=== PATIENT | female | born 1930 | race Caucasian/White ===

== ENCOUNTER 2016-08-30 12:44 | Inpatient (IN) | payer OTHER ==
[~2016-08-30] VITALS: Ht 157.5 cm; Wt 42.0 kg
[~2016-08-30 12:44] MED LIST: ATV5X PO; CALC-20 PO; ERGO500011 PO; HYDR-4079 PO; LOSA1TAB PO; MULTCAP33 PO; POTA-327 PO; TGR100 PO; ZONI100C39 PO
[2016-08-30] MEDS ORDERED: TOLT2TAB9 PO (13:25)
[2016-08-30] MEDS ORDERED: CARB1CAP8 PO (13:25)
[2016-08-30] MEDS ORDERED: MCRK/10 PO (13:25)
[2016-08-30] MEDS ORDERED: DRGTP12 TOP (13:26)
[2016-08-30] MEDS ORDERED: ONDANSETRON INJ 2 MG/ML 2 ML VIAL IV STA (13:34)
[2016-08-30] MEDS ORDERED: MoRPHine SULFATE 2 MG/ML CARP IV STA (13:34)
[2016-08-30 14:04] LABS: MEAN CELL VOLUME 95.2 fL (80-100); MEAN CORPUSCULAR HEMOGLOBIN 31.5 pg (25-34); MEAN CORPUSCULAR HGB CONC 33.1 g/dl (32-36); MEAN PLATELET VOLUME 8.1 fL (7.4-10.4); PLATELET COUNT 217 K/uL (130-400); RED BLOOD COUNT 3.78 M/uL (4.2-5.4); WHITE BLOOD COUNT 10.07 K/uL (4.8-10.8)
[2016-08-30 14:22] LABS: BUN/CREATININE RATIO 19.3 (10-20); CALCIUM 8.8 mg/dl (8.5-10.1); CREATININE 0.69 mg/dl (0.60-1.20); POTASSIUM 4.7 mmol/L (3.5-5.1)
[2016-08-30 14:55] LABS: BASO % 0.2 %; BASO ABS # 0.02 K/uL (0-0.2); COMPLETE YES; EOS % 0.3 %; IG% 0.4 %; LYMPH % 7.5 %; LYMPH ABS # 0.76 K/uL (1.2-3.4); MONO % 9.7 %; NEUT % 81.9 %
--- NOTE | 2016-08-30 15:10 | DIAGNOSTIC IMAGING REPORT ---
LEFT ELBOW 2 VIEWS CLINICAL HISTORY: Fall. Elbow deformity. FINDINGS: Frontal and lateral views of the left elbow are obtained. No prior studies are available for comparison at the time of dictation. The skeletal structures are osteopenic. There is a distracted fracture through the olecranon process of the ulna. The fragments are distracted by at least 7 mm. There is a large associated joint effusion and marked soft tissue edema around the elbow. No additional fracture is seen. Enthesophytes arise from the humeral epicondyles. Degenerative spurring is seen along the medial aspect of the joint space. IMPRESSION: 1. There is a distracted fracture of the olecranon process with associated joint effusion and soft tissue edema. 2. No additional fracture is seen. Electronically signed by: Travis Khalil M.D. 08/30/2016 3:09 PM Dictated Date/Time: 08/30/2016 3:07 PM
--- NOTE | 2016-08-30 15:24 | DIAGNOSTIC IMAGING REPORT ---
RIGHT HIP 2 VIEWS CLINICAL HISTORY: Fall with right hip pain. FINDINGS: AP and frog-leg views of the right hip are correlated with pelvic radiograph dated 02/05/2011. The skeletal structures are osteopenic. A right hip arthroplasty is in near-anatomic alignment. No acute fracture is seen. No periprosthetic lucency is identified. Sclerotic change is noted in the right sacroiliac joint. The overlying soft tissues are within normal limits. Pelvic calcifications are unchanged and may be related to uterine fibroids. IMPRESSION: 1. There is no radiographic evidence of right hip fracture. 2. A right hip arthroplasty is in near-anatomic alignment. Electronically signed by: Travis Khalil M.D. 08/30/2016 3:22 PM Dictated Date/Time: 08/30/2016 3:21 PM
--- NOTE | 2016-08-30 15:28 | DIAGNOSTIC IMAGING REPORT ---
AP CHEST WITH LEFT-SIDED RIB SERIES CLINICAL HISTORY: Fall. Left rib pain. FINDINGS: An AP upright chest radiograph with 3 additional views may left-sided rib series is compared to study dated 12/31/2013. The heart is top normal for projection and there is atherosclerotic calcification of the thoracic aorta. Chronic interstitial thickening is unchanged. No airspace consolidation, pleural effusion, or pneumothorax is seen. The skeletal structures are osteopenic. There are numerous healed left-sided rib fractures. There are acute and nondistracted left anterolateral 7th through 10th rib fractures seen on the rib series. Degenerative change and moderate scoliosis is noted in the thoracic spine. Fusion hardware is partially imaged in the lumbar spine. IMPRESSION: 1. The lungs are clear and there is no pneumothorax. 2.There are acute and nondistracted left anterolateral 7th through 10th rib fractures seen on the rib series. Electronically signed by: Travis Khalil M.D. 08/30/2016 3:27 PM Dictated Date/Time: 08/30/2016 3:24 PM
[2016-08-30] MEDS ORDERED: MoRPHine SULFATE 2 MG/ML CARP IV PRN (15:45)
--- NOTE | 2016-08-30 15:53 | EMERGENCY ROOM VISIT NOTE ---
ED Visit Note First contact with patient: 12:51 Staff note: I have reviewed the Patients chart and have discussed this case with my PA. I generally agree with the ED note and findings.
[2016-08-30 16:13] VITALS: O2SAT 98; Ht 157.5 cm; Wt 42.0 kg
[2016-08-30] MEDS ORDERED: ERGO50002 PO (16:53)
[2016-08-30] MEDS ORDERED: LOSA50TA6 PO (16:53)
[2016-08-30] MEDS ORDERED: HYDR-4383 PO (16:53)
--- NOTE | 2016-08-30 17:03 | EMERGENCY ROOM VISIT NOTE ---
History First contact with patient: 12:51 Chief Complaint: FALL Stated Complaint: FALL/ELBOW DEFORMITY History of Present Illness The patient is a 85 year old white female who presents to the Emergency Room by ambulance with complaints of left elbow pain, left rib pain, and right hip pain after falling at home today. Patient was getting up from the couch to try her new cane. She lost her balance and fell onto her left side. She believe she struck her elbow on either the couch or the floor. She denies striking her head. There was no loss of consciousness. She denies any nausea, vomiting, chest pain, or shortness of breath. She does get left-sided rib pain with attempt of a deep breath. There was no chest pain or dizziness at the time of the fall. She does have a history of epilepsy and seizures but there was no seizure activity today. Arm has been splinted. No other treatment. She denies any numbness or tingling. She previously had a right total hip arthroplasty by Dr. Maradiaga many years ago. She denies neck pain or low back pain at this time. Review of Systems REVIEW OF SYSTEM: HEENT: No dizziness, visual problems, hearing loss, or tinnitus. There is no difficulty swallowing and no oral lesions are present. PULMONARY: No cough, shortness of breath, sputum production or hemoptysis. CARDIOVASCULAR: No chest pain, palpitations, shortness of breath or peripheral edema. GASTROINTESTINAL: No diarrhea, constipation, nausea, vomiting, or abdominal pain. GENITOURINARY: No dysuria, frequency, urgency or nocturia. NEUROLOGIC: No weakness, muscle tenderness, or history of neurological problems. MUSCULOSKELETAL: No history of joint tenderness/swelling. Positive history of arthritis and arthralgias. SKIN: No rashes or lesions. PSYCHIATRIC: No history of depression or mental illness. ENDOCRINE: No history of diabetes, thyroid disorders, or abnormal hair growth. Past Medical/Surgical History Medical Problems: (1) Benign hypertension (2) Elbow fracture, left (3) Seizure disorder Surgical Problems: (1) Status post hip replacement (2) Status post lumbar laminectomy (3) Status post tonsillectomy Family History Hypertension Social History Smoking Status: Never Smoker Smokeless Tobacco Use: No Alcohol Use: none Drug Use: none Marital Status: Housing Status: lives alone Occupation Status: retired Current/Historical Medications Scheduled Calcium Carbonate-Vitamin D (Calcium 600 + D), 1 TAB PO BID Carbamazepine (Carbatrol Er), 200 MG PO BID Ergocalciferol (Drisdol), 1 CAP PO MONTHLY Fentanyl (Fentanyl), 12 MCG TOP Q3D Losartan Potassium (Cozaar), 1 TAB PO DAILY Multiple Vitamins W/ Minerals (Preservision Areds), 2 CAP PO DAILY Potassium Chloride (K-Tabs), 10 MEQ PO DAILY Tolterodine Tartrate (Tolterodine Tartrate), 2 MG PO BID Zonisamide (Zonegran), 100 MG PO BID Scheduled PRN Hydrocodone/Acetaminophen ([place] 10/325 Tab), 1 TAB PO Q4H PRN for Pain Allergies Coded Allergies: MURIEL Inhibitors (Verified Allergy, Intermediate, COUGH, 08/30/16) Adhesives (Verified Allergy, Intermediate, SEVERE BLISTERS, 08/30/16) Latex1 -Allergic Contact Dermititis (Verified Allergy, Mild, RASH, BLISTERS, 08/30/16) Alendronate (Verified Allergy, Unknown, Unknown., 08/30/16) PT list. Penicillins (Verified Allergy, Unknown, RASH, 08/30/16) Ranitidine (Verified Allergy, Unknown, Unknown., 08/30/16) PT list. Tetracycline (Verified Allergy, Unknown, UNKNOWN, 08/30/16) Topiramate (Verified Allergy, Unknown, UNKNOWN, 08/30/16) Valproic Acid and Related (Verified Adverse Reaction, Intermediate, DIPLOPIA;SEVERE WT LOSS, 08/30/16) Beta Adrenergic Blockers (Verified Adverse Reaction, Mild, FATIGUE, 08/30/16 ) Codeine (Verified Adverse Reaction, Mild, NAUSEA, 08/30/16) Nifedipine (Verified Adverse Reaction, Mild, ABD BLOATING, 08/30/16) Physical Exam Vital Signs Date Time Temp Pulse Resp B/P (MAP) Pulse Ox O2 Delivery O2 Flow Rate FiO2 08/30/16 17:23 37.2 79 18 157/76 (103) 98 Room Air 08/30/16 16:59 76 18 148/67 97 Room Air 08/30/16 16:13 98 Room Air 08/30/16 14:52 85 18 156/93 98 Room Air 08/30/16 13:47 121 08/30/16 12:57 36.9 85 18 163/73 95 Room Air Physical Exam Gen.: Frail, elderly white female, in obvious discomfort. No acute distress. Laying on a bed. Alert and oriented. Skin:Warm and dry with fair turgor. No rashes or lesions. Significant edema and ecchymosis present at the left olecranon. No Erythema. The patient is not diaphoretic. No abrasions. HEENT: Normocephalic atraumatic. Eyes PERRLA, EOMI. No conjunctiva or scleral injection. Nares patent bilaterally without turbinate enlargement. No significant drainage. No epistaxis. Oropharynx without erythema or exudate. Uvula midline, oral mucosa moist. No lesions present. Chest: Patient has discomfort with palpation over the left chest wall. No crepitus. No pain with palpation over the right chest wall. Heart: Heart RRR. No MGR. Peripheral pulses are 2+. Lungs: Lungs are clear to auscultation. No crackles rhonchi or wheezing. Good air movement. The patient is able to take a deep breath. Abdomen: Abdomen was inspected, auscultated, and palpated. Bowel sounds present x 4. Soft, nontender to palpation. No hepato-splenomegaly. No masses noted. Musculoskeletal: Left arm evaluation reveals no pain with palpation around the shoulder. Supple motion of the shoulder. Left elbow has significant pain over the epicondyles and olecranon. She has limited range of motion of the elbow, though there is more motion than I anticipated. No pain with palpation over the forearm or wrist. Full range of motion of the wrist and digits. Obvious arthritic changes of her fingers. Supple motion of the right arm. No pain with palpation over her cervical spine. Lower extremity evaluation reveals supple motion of the left hip, knee, and ankle. Right lower extremity evaluation reveals no pain with log rolling of the hip. She does have trochanteric pain with hip flexion. No pain at the right knee or ankle with motion. There is no significant leg length discrepancy. Neurologic: Gross sensation is intact across the upper and lower extremities by soft touch. Cranial nerves II through XII are intact. Medical Decision & Procedures ER Provider Diagnostic Interpretation: Radiographic imaging obtained today of the left elbow, left wrist, and right hip were obtained. These were read by radiology. Patient has a displaced olecranon fracture of the left elbow. Edema is noted. She has fractures of the seventh, eighth, ninth, and 10th ribs. There is a right total hip prosthesis without evidence of fracture. It appears well-seated and is in appropriate position. EKG obtained today shows normal sinus rhythm with a rate of 69. This was reviewed with Dr. Can. Laboratory Results 08/30/16 13:55 Red Blood Count 3.78, Mean Corpuscular Volume 95.2, Mean Corpuscular Hemoglobin 31.5, Mean Corpuscular Hemoglobin Concent 33.1, Mean Platelet Volume 8.1, Neutrophils (%) (Auto) 81.9, Lymphocytes (%) (Auto) 7.5, Monocytes (%) (Auto) 9.7, Eosinophils (%) (Auto) 0.3, Basophils (%) (Auto) 0.2, Neutrophils # (Auto) 8.24, Lymphocytes # (Auto) 0.76, Monocytes # (Auto) 0.98, Eosinophils # (Auto) 0.03, Basophils # (Auto) 0.02 08/30/16 13:55 Test 08/30/16 13:55 08/30/16 16:58 White Blood Count 10.07 K/uL (4.8-10.8) Red Blood Count 3.78 M/uL (4.2-5.4) Hemoglobin 11.9 g/dL (12.0-16.0) Hematocrit 36.0 % (37-47) Mean Corpuscular Volume 95.2 fL (80-100) Mean Corpuscular Hemoglobin 31.5 pg (25-34) Mean Corpuscular Hemoglobin Concent 33.1 g/dl (32-36) Platelet Count 217 K/uL (130-400) Mean Platelet Volume 8.1 fL (7.4-10.4) Neutrophils (%) (Auto) 81.9 % Lymphocytes (%) (Auto) 7.5 % Monocytes (%) (Auto) 9.7 % Eosinophils (%) (Auto) 0.3 % Basophils (%) (Auto) 0.2 % Neutrophils # (Auto) 8.24 K/uL (1.4-6.5) Lymphocytes # (Auto) 0.76 K/uL (1.2-3.4) Monocytes # (Auto) 0.98 K/uL (0.11-0.59) Eosinophils # (Auto) 0.03 K/uL (0-0.5) Basophils # (Auto) 0.02 K/uL (0-0.2) RDW Standard Deviation 46.8 fL (36.4-46.3) RDW Coefficient of Variation 13.4 % (11.5-14.5) Immature Granulocyte % (Auto) 0.4 % Immature Granulocyte # (Auto) 0.04 K/uL (0.00-0.02) Anion Gap 7.0 mmol/L (3-11) Est Creatinine Clear Calc Drug Dose 39.6 ml/min Estimated GFR () 92.0 Estimated GFR (Non- 79.4 BUN/Creatinine Ratio 19.3 (10-20) Calcium Level 8.8 mg/dl (8.5-10.1) Prothrombin Time 10.7 SECONDS (9.0-12.0) Prothromb Time International Ratio 1.0 (0.9-1.1) CBC and PRP obtained today were relatively unremarkable. Mildly low H&H. Medications Administered Medications (Trade) Dose Ordered Sig/Guillermo Route Start Time Stop Time Status Last Admin Dose Admin Morphine Sulfate (MoRPHine SULFATE INJ) 2 mg NOW STAT IV 08/30/16 13:34 08/30/16 13:35 DC 08/30/16 14:02 2 MG Morphine 2 mg IV 2 ED Course She was evaluated in B9. Patient was educated. Conservative care measures were discussed. IV was established. Labs were obtained. Left elbow, Left ribs, and right hip films were obtained. She has a left elbow fracture and multiple left rib fractures. She did receive morphine 2 g IV 2 for pain control. Patient was relatively comfortable as long as the arm was not moved. Because of her comorbidities and multiple rib fractures, I do not think she will do well at home. I did speak with Dr. Le from orthopedics. She will likely need fixation after medical clearance. He agreed with admission but requested the hospitalist do so with orthopedic consultation. I did speak with the hospitalist service as well and they are agreeable to admission. Please see that dictation for final management and outcome. Posterior long-arm splint was placed in the ED to immobilize her elbow fracture. Neurovascular status was checked before and after splint placement. Patient was seen in conjunction with Dr. Can, who also evaluated the patient and concurred with today's diagnosis and treatment plan. Medical Decision Possibility of head injury, spinal injury, epileptic seizure, arrhythmia, additional long bone fracture, hip dislocation, shoulder dislocation, and pneumothorax were considered, among other differential Impression Primary Impression: Elbow fracture, left Additional Impressions: Fall at home Multiple fractures of ribs, left side, initial encounter for closed fracture Departure Information Referrals Ervin Barton M.D. (PCP) Patient Instructions [facility] Problem Qualifiers Primary Impression: Elbow fracture, left Encounter type: initial encounter Fracture type: closed Qualified Codes: S42.402A - Unspecified fracture of lower end of left humerus, initial encounter for closed fracture Additional Impressions: Fall at home Encounter type: initial encounter Qualified Codes: W19.XXXA - Unspecified fall, initial encounter; Y92.099 - Unspecified place in other non-institutional residence as the place of occurrence of the external cause
[2016-08-30 17:13] LABS: PROTHROMBIN TIME (PATIENT) 10.7 SECONDS (9.0-12.0)
[2016-08-30 17:23] VITALS: BP 157/76; PULSE 79; TEMP 37.2; O2SAT 98
--- NOTE | 2016-08-30 17:28 | History and Physical ---
History & Physical Date & Time of Service: Aug 30, 2016 at 16:56 Chief Complaint: Fall/Elbow Deformity Primary Care Physician: Ervin Barton M.D. History of Present Illness Source: patient, caregiver, clinic records, hospital records 85 yo F with OA presents with L elbow pain and swelling after rolling off of her couch onto her floor. Workup in the ER reveals a L exbow fracture and several L rib fractures. She reports some pain in those areas, but states that it is controlled. She has had surgeries in the past with no problems tolerating anesthesia. She denies a history of blood clot. She denies any history of chest pain or shortness of breath in the past 6 months and denies any history of heart or lung disease. At baseline, she is very functional as she lives alone. She states she takes care of everything for herself and can climb a flight of steps without any issues. She does has a h/o R hip replacement and reports some chronic pain in that joint for which she takes Fentanyl successfully. She reports h/o epilepsy but denies any h/o seizure in years. Dr Le was contacted by the ER staff and is aware of the patient. He asked for Medicine team to admit and he will see the patient in consult. Past Medical/Surgical History Medical Problems: (1) HTN (hypertension) Status: Chronic (2) Osteoarthritis Status: Chronic (3) Osteoporosis Status: Chronic (4) Seizure disorder Status: Chronic Surgical Problems: (1) Status post hip replacement Status: Chronic (2) Status post lumbar laminectomy Status: Chronic (3) Status post tonsillectomy Status: Chronic Family History Hypertension Social History Smoking Status: Never Smoker Smokeless Tobacco Use: No Alcohol Use: none Drug Use: none Marital Status: Housing status: lives alone Occupational Status: retired Immunizations History of Influenza Vaccine: No Influenza Vaccine Date: Dec 28, 2013 History of Tetanus Vaccine?: Yes Tetanus Immunization Date: Mar 14, 2012 History of Pneumococcal: Yes Pneumococcal Date: Feb 14, 2015 History of Hepatitis B Vaccine: No Multi-Drug Resistant Organisms History of MDRO: No Allergies Coded Allergies: MURIEL Inhibitors (Verified Allergy, Intermediate, COUGH, 08/30/16) Adhesives (Verified Allergy, Intermediate, SEVERE BLISTERS, 08/30/16) Latex1 -Allergic Contact Dermititis (Verified Allergy, Mild, RASH, BLISTERS, 08/30/16) Alendronate (Verified Allergy, Unknown, Unknown., 08/30/16) PT list. Penicillins (Verified Allergy, Unknown, RASH, 08/30/16) Ranitidine (Verified Allergy, Unknown, Unknown., 08/30/16) PT list. Tetracycline (Verified Allergy, Unknown, UNKNOWN, 08/30/16) Topiramate (Verified Allergy, Unknown, UNKNOWN, 08/30/16) Valproic Acid and Related (Verified Adverse Reaction, Intermediate, DIPLOPIA;SEVERE WT LOSS, 08/30/16) Beta Adrenergic Blockers (Verified Adverse Reaction, Mild, FATIGUE, 08/30/16 ) Codeine (Verified Adverse Reaction, Mild, NAUSEA, 08/30/16) Nifedipine (Verified Adverse Reaction, Mild, ABD BLOATING, 08/30/16) Home Medications Scheduled Calcium Carbonate-Vitamin D (Calcium 600 + D), 1 TAB PO BID Carbamazepine (Carbatrol Er), 200 MG PO BID Ergocalciferol (Drisdol), 1 CAP PO MONTHLY Fentanyl (Fentanyl), 12 MCG TOP Q3D Losartan Potassium (Cozaar), 1 TAB PO DAILY Multiple Vitamins W/ Minerals (Preservision Areds), 2 CAP PO DAILY Potassium Chloride (K-Tabs), 10 MEQ PO DAILY Tolterodine Tartrate (Tolterodine Tartrate), 2 MG PO BID Zonisamide (Zonegran), 100 MG PO BID Scheduled PRN Hydrocodone/Acetaminophen ([place] 10/325 Tab), 1 TAB PO Q4H PRN for Pain Review of Systems Ten systems were reviewed and negative except as indicated in HPI. Physical Exam Vital Signs Date Time Temp Pulse Resp B/P (MAP) Pulse Ox O2 Delivery O2 Flow Rate FiO2 08/30/16 16:13 98 Room Air 08/30/16 14:52 85 18 156/93 98 Room Air 08/30/16 13:47 121 08/30/16 12:57 36.9 85 18 163/73 95 Room Air GEN: elderly, frail, in no acute distress, alert and appropriate HEENT: NC/AT, PERRL, normal sclerae, MMM, pharynx non-acute, no LAD CARDIO: reg rate, S1/2 heard without m/g/r LUNGS: CTA bilaterally, no crackles, rales or wheezes, good diaphragmatic excursion ABD: soft, non-tender, non-distended, no rebound or guarding, +BS EXTREMITY: 2+ pulses throughout, L elbow is swollen and erythematous-localized over olecranon process, cannot fully extend, sensation intact in distal extremity, moves all fingers without issue. NEURO: CN 2-12 grossly intact, sensation intact throughout MUSC: limited movement of L arm as above, some difficulty moving R leg because of R hip pain, otherwise strength appears 5/5 throughout. SKIN: warm and dry and changes as above. Diagnostics Laboratory Results Results Past 24 Hours Test 08/30/16 13:55 08/30/16 16:18 Range/Units White Blood Count 10.07 4.8-10.8 K/uL Red Blood Count 3.78 4.2-5.4 M/uL Hemoglobin 11.9 12.0-16.0 g/dL Hematocrit 36.0 37-47 % Mean Corpuscular Volume 95.2 80-100 fL Mean Corpuscular Hemoglobin 31.5 25-34 pg Mean Corpuscular Hemoglobin Concent 33.1 32-36 g/dl Platelet Count 217 130-400 K/uL Mean Platelet Volume 8.1 7.4-10.4 fL Neutrophils (%) (Auto) 81.9 % Lymphocytes (%) (Auto) 7.5 % Monocytes (%) (Auto) 9.7 % Eosinophils (%) (Auto) 0.3 % Basophils (%) (Auto) 0.2 % Neutrophils # (Auto) 8.24 1.4-6.5 K/uL Lymphocytes # (Auto) 0.76 1.2-3.4 K/uL Monocytes # (Auto) 0.98 0.11-0.59 K/uL Eosinophils # (Auto) 0.03 0-0.5 K/uL Basophils # (Auto) 0.02 0-0.2 K/uL RDW Standard Deviation 46.8 36.4-46.3 fL RDW Coefficient of Variation 13.4 11.5-14.5 % Immature Granulocyte % (Auto) 0.4 % Immature Granulocyte # (Auto) 0.04 0.00-0.02 K/uL Sodium Level 135 136-145 mmol/L Potassium Level 4.7 3.5-5.1 mmol/L Chloride Level 99 98-107 mmol/L Carbon Dioxide Level 29 21-32 mmol/L Anion Gap 7.0 3-11 mmol/L Blood Urea Nitrogen 13 7-18 mg/dl Creatinine 0.69 0.60-1.20 mg/dl Est Creatinine Clear Calc Drug Dose 39.6 ml/min Estimated GFR () 92.0 Estimated GFR (Non- 79.4 BUN/Creatinine Ratio 19.3 10-20 Random Glucose 108 70-99 mg/dl Calcium Level 8.8 8.5-10.1 mg/dl Diagnostic Radiology LEFT ELBOW 2 VIEWS CLINICAL HISTORY: Fall. Elbow deformity. FINDINGS: Frontal and lateral views of the left elbow are obtained. No prior studies are available for comparison at the time of dictation. The skeletal structures are osteopenic. There is a distracted fracture through the olecranon process of the ulna. The fragments are distracted by at least 7 mm. There is a large associated joint effusion and marked soft tissue edema around the elbow. No additional fracture is seen. Enthesophytes arise from the humeral epicondyles. Degenerative spurring is seen along the medial aspect of the joint space. IMPRESSION: 1. There is a distracted fracture of the olecranon process with associated joint effusion and soft tissue edema. 2. No additional fracture is seen. RIGHT HIP 2 VIEWS CLINICAL HISTORY: Fall with right hip pain. FINDINGS: AP and frog-leg views of the right hip are correlated with pelvic radiograph dated 02/05/2011. The skeletal structures are osteopenic. A right hip arthroplasty is in near-anatomic alignment. No acute fracture is seen. No periprosthetic lucency is identified. Sclerotic change is noted in the right sacroiliac joint. The overlying soft tissues are within normal limits. Pelvic calcifications are unchanged and may be related to uterine fibroids. IMPRESSION: 1. There is no radiographic evidence of right hip fracture. 2. A right hip arthroplasty is in near-anatomic alignment. AP CHEST WITH LEFT-SIDED RIB SERIES CLINICAL HISTORY: Fall. Left rib pain. FINDINGS: An AP upright chest radiograph with 3 additional views may left-sided rib series is compared to study dated 12/31/2013. The heart is top normal for projection and there is atherosclerotic calcification of the thoracic aorta. Chronic interstitial thickening is unchanged. No airspace consolidation, pleural effusion, or pneumothorax is seen. The skeletal structures are osteopenic. There are numerous healed left-sided rib fractures. There are acute and nondistracted left anterolateral 7th through 10th rib fractures seen on the rib series. Degenerative change and moderate scoliosis is noted in the thoracic spine. Fusion hardware is partially imaged in the lumbar spine. IMPRESSION: 1. The lungs are clear and there is no pneumothorax. 2.There are acute and nondistracted left anterolateral 7th through 10th rib fractures seen on the rib series. EKG SR 69. Impression Assessment and Plan 85 yo F with osteoporosis and poss UTI presents with L elbow fracture and multiple L rib fractures after traumatic fall from a sitting height 1. Fractures-Ortho to see and consider surgery on elbow. She is OK to proceed to surgery without further cardiac workup at this time. ER staff reports they will splint the elbow which has not been done at the time of this exam. Will also allow ice pack to area and control pain with morphine and [place] PRN. 2. Epilepsy-remote h/o seizures, controlled well on current meds 3. HTN-cont Losartan 4. Osteoporosis 5. Urge incontinence-hold. Detrol to avoid unnecessary medication interactions and in setting of poss UTI 6. UTI-chronic incontinence issues. In setting of recent fall, will treat empirically with Rocephin. 7. OA DVT proph-heparin SQ DNR-discussed with she and her guardian at admission Dispo-to med/surge, pending Ortho evaluation and plans. Mariam Vela DO [facility] Hospitalist Level of Care Med/Surg Advanced Directives Existing Living Will: Yes Existing Power of Air Route Controller: Yes ([facility] ) Resuscitation Status DO NOT RESUSCITATE VTE Prophylaxis VTE Risk Assessment Done? Y/N: Yes Risk Level: Moderate Given or contraindicated: Unfractionated heparin SQ
[2016-08-30] MEDS: MoRPHine SULFATE 2 MG/ML CARP IV PRN ×2 (18:40→23:56)
[2016-08-30 18:56] LABS: URINE APPEARANCE CLOUDY (CLEAR); URINE BILIRUBIN NEG (NEG); URINE COLOR YELLOW; URINE EPITHELIAL CELL AUTO >30 /lpf (0-5); URINE NITRITE NEG (NEG); URINE SPECIFIC GRAVITY 1.018 (1.000-1.030); UROBILINOGEN NEG (NEG)
[2016-08-30 19:06] LABS: MANUAL MICROSCOPIC REQUIRED? NO; REVIEW REQ? NO
[2016-08-30] MEDS ORDERED: FENTANYL 12 MCG/HR TDSY TD SCH (20:00)
[2016-08-30] MEDS ORDERED: FENTANYL PATCH REMOVE & WASTE SCH (20:00)
[2016-08-30 20:05] VITALS: BP 116/66; PULSE 82; TEMP 37.2; O2SAT 96
[2016-08-30] MEDS: CALCIUM 600MG + VIT D 400 IU TAB PO SCH (21:01)
[2016-08-30] MEDS: ZONISAMIDE 100 MG CAP PO SCH (21:01)
[2016-08-30] MEDS: CARBAMAZEPINE 200 MG TABCR PO SCH (21:02)
[2016-08-30] MEDS: HEPARIN SOD 5000 UNIT/0.5 ML CARP SQ SCH (21:04)
[2016-08-30 22:57] VITALS: BP 118/67; PULSE 71; TEMP 37.1; O2SAT 97
[2016-08-30] MEDS: CHECK FENTANYL PATCH PLACEMENT SCH (23:51)
[2016-08-31] MEDS ORDERED: CEFTRIAXONE SOD INJ 1 GM in DEXTROSE 5% ADD-VANTAGE 50ML 50 ML IV SCH ×2
[2016-08-31] MEDS: ACETAMINOPHEN 325 MG TAB PO PRN ×2 (01:52→07:47)
[2016-08-31] MEDS: MoRPHine SULFATE 2 MG/ML CARP IV PRN ×3 (03:57→14:08)
[2016-08-31] MEDS: HEPARIN SOD 5000 UNIT/0.5 ML CARP SQ SCH (05:30)
[2016-08-31 06:06] LABS: HEMATOCRIT 30.3 % (37-47); MEAN CELL VOLUME 94.7 fL (80-100); MEAN CORPUSCULAR HEMOGLOBIN 31.6 pg (25-34); MEAN CORPUSCULAR HGB CONC 33.3 g/dl (32-36); MEAN PLATELET VOLUME 8.4 fL (7.4-10.4); PLATELET COUNT 202 K/uL (130-400); WHITE BLOOD COUNT 7.17 K/uL (4.8-10.8)
[2016-08-31 06:42] LABS: BUN/CREATININE RATIO 22.9 (10-20); CALCIUM 8.9 mg/dl (8.5-10.1); CREATININE 0.74 mg/dl (0.60-1.20)
[2016-08-31] MEDS: CHECK FENTANYL PATCH PLACEMENT SCH ×2 (07:32→16:09)
[2016-08-31 08:02] VITALS: BP 125/66; PULSE 63; TEMP 36.7; O2SAT 97
[2016-08-31] MEDS: CALCIUM 600MG + VIT D 400 IU TAB PO SCH ×2 (09:30→21:33)
[2016-08-31] MEDS: ONDANSETRON INJ 2 MG/ML 2 ML VIAL IV PRN ×2 (09:33→20:06)
[2016-08-31] MEDS: LOSARTAN POTASSIUM 50 MG TAB PO SCH (09:34)
[2016-08-31] MEDS: CEROVITE ADV FORMULA TAB PO SCH (09:35)
[2016-08-31] MEDS: CARBAMAZEPINE 200 MG TABCR PO SCH ×2 (09:35→21:33)
[2016-08-31] MEDS: POTASSIUM CHLORIDE 10 MEQ TABCR PO SCH (09:36)
[2016-08-31] MEDS: ZONISAMIDE 100 MG CAP PO SCH ×2 (09:36→21:33)
--- NOTE | 2016-08-31 12:24 | Progress Note ---
Internal Med Progress Note Date of Service: Aug 31, 2016. Provider Documentation: SUBJECTIVE: Patient is frustrated as she has not been in OR yet. C/o pain in left elbow. No chest pain, though has multiple rib fractures. No recent illness, infection. No prior hx of MD, Stroke. No c/o chest pain, SOB , cough, fever, chills. Able to do activities of daily living independently OBJECTIVE: Vital Signs-as noted below Exam: General-AAOX3, no distress, malnourished, frail Eyes-No icterus Neck-Supple, No JVD Lungs-AEBE decreased, no wheezing, rales Heart-S1, S2 normal, no murmurs Abdomen-Soft, non tender, non distended, BS present Extremities-No edema Neuro-Grossly no focal deficits Lab data as noted below. ASSESSMENT & PLAN: 85 yo F with osteoporosis and poss UTI presents with L elbow fracture and multiple L rib fractures after traumatic fall from a sitting height. LEFT OLECRANON FRACTURE S/P MECHANICAL FALL -Pre operative exam: No symptoms/signs concerning for cardiac/pulmonary conditions. No prior hx of CKD, Stroke, MD. Functional status- Able to do ADLS independently, uses walker and cane. CXR- Rib fractures 7-10, left and no other acute abnormalities, EKG- NSR, no acute ischemic changes Risk factors- HTN, Advanced age -OK to proceed with surgery with moderate risk of cardio pulmonary complications -Pain control -Ortho on board- Plan for surgery in AM LEFT RIB FRACTURES: X ray- 7th-10th , left non displaced fractures -No pain in chest HX OF EPILEPSY Remote hx -well controlled on current medications HTN -Stable. Continue with losartan OSTEOPOROSIS Vitamin D level 41- normal -Continue with calcium supplements ABNORMAL UA -No urinary symptoms -Urine cx- contaminated -Will discontinue IV Rocephin as no indication for it. HX OF RIGHT HIP ARTHROPLASTY DVT proph-heparin SQ for now DNR-discussed with she and her guardian at admission DISPOSITION Plan will be rehab post surgery as she lives alone Vital Signs: Date Time Temp Pulse Resp B/P (MAP) Pulse Ox O2 Delivery O2 Flow Rate FiO2 08/31/16 08:02 36.7 63 16 125/66 (85) 97 Room Air 08/31/16 08:00 Room Air 08/31/16 00:00 Room Air 08/30/16 22:57 37.1 71 16 118/67 (84) 97 Room Air 08/30/16 20:05 37.2 82 16 116/66 (83) 96 Room Air 08/30/16 17:23 37.2 79 18 157/76 (103) 98 Room Air 08/30/16 16:59 76 18 148/67 97 Room Air 08/30/16 16:13 98 Room Air 08/30/16 14:52 85 18 156/93 98 Room Air 08/30/16 13:47 121 08/30/16 12:57 36.9 85 18 163/73 95 Room Air Lab Results: Results Past 24 Hours Test 08/30/16 13:55 08/30/16 16:58 08/30/16 18:40 08/31/16 05:49 Range/Units White Blood Count 10.07 7.17 4.8-10.8 K/uL Red Blood Count 3.78 3.20 4.2-5.4 M/uL Hemoglobin 11.9 10.1 12.0-16.0 g/dL Hematocrit 36.0 30.3 37-47 % Mean Corpuscular Volume 95.2 94.7 80-100 fL Mean Corpuscular Hemoglobin 31.5 31.6 25-34 pg Mean Corpuscular Hemoglobin Concent 33.1 33.3 32-36 g/dl Platelet Count 217 202 130-400 K/uL Mean Platelet Volume 8.1 8.4 7.4-10.4 fL Neutrophils (%) (Auto) 81.9 % Lymphocytes (%) (Auto) 7.5 % Monocytes (%) (Auto) 9.7 % Eosinophils (%) (Auto) 0.3 % Basophils (%) (Auto) 0.2 % Neutrophils # (Auto) 8.24 1.4-6.5 K/uL Lymphocytes # (Auto) 0.76 1.2-3.4 K/uL Monocytes # (Auto) 0.98 0.11-0.59 K/uL Eosinophils # (Auto) 0.03 0-0.5 K/uL Basophils # (Auto) 0.02 0-0.2 K/uL RDW Standard Deviation 46.8 46.6 36.4-46.3 fL RDW Coefficient of Variation 13.4 13.3 11.5-14.5 % Immature Granulocyte % (Auto) 0.4 % Immature Granulocyte # (Auto) 0.04 0.00-0.02 K/uL Sodium Level 135 136 136-145 mmol/L Potassium Level 4.7 4.0 3.5-5.1 mmol/L Chloride Level 99 100 98-107 mmol/L Carbon Dioxide Level 29 27 21-32 mmol/L Anion Gap 7.0 9.0 3-11 mmol/L Blood Urea Nitrogen 13 17 7-18 mg/dl Creatinine 0.69 0.74 0.60-1.20 mg/dl Est Creatinine Clear Calc Drug Dose 39.6 36.9 ml/min Estimated GFR () 92.0 85.6 Estimated GFR (Non- 79.4 73.9 BUN/Creatinine Ratio 19.3 22.9 10-20 Random Glucose 108 95 70-99 mg/dl Calcium Level 8.8 8.9 8.5-10.1 mg/dl Prothrombin Time 10.7 9.0-12.0 SECONDS Prothromb Time International Ratio 1.0 0.9-1.1 Urine Color YELLOW Urine Appearance CLOUDY CLEAR Urine pH 8.0 4.5-7.5 Urine Specific Warner 1.018 1.000-1.030 Urine Protein NEG NEG Urine Glucose (UA) NEG NEG Urine Ketones TRACE NEG Urine Occult Blood NEG NEG Urine Nitrite NEG NEG Urine Bilirubin NEG NEG Urine Urobilinogen NEG NEG Urine Leukocyte Esterase SMALL NEG Urine WBC (Auto) 1-5 0-5 /hpf Urine RBC (Auto) 5-10 0-4 /hpf Urine Hyaline Casts (Auto) 1-5 0-5 /lpf Urine Epithelial Cells (Auto) >30 0-5 /lpf Urine Bacteria (Auto) 1+ NEG 25-Hydroxy Vitamin D Total 41.1 30-100 ng/ml Microbiology Results 08/30/16 Urine Culture - Final, Complete GREATER THAN THREE TYPES OF ORGANISMS...
[2016-08-31] MEDS ORDERED: FENTANYL CITRATE INJ 50 MCG/1 ML 2 ML VIAL ONE (15:10)
[2016-08-31 15:16] VITALS: BP 156/73; PULSE 63; TEMP 36.5; O2SAT 97
[2016-08-31] MEDS ORDERED: FENTANYL CITRATE INJ 50 MCG/1 ML 2 ML VIAL IV PRN (16:30)
[2016-08-31] MEDS ORDERED: EpHEDrine SULFATE INJ 50 MG/ML AMP IV PRN (16:30)
[2016-08-31] MEDS ORDERED: NURSING VERBAL MED ORDER ONE ×2 (16:30→17:00)
[2016-08-31] MEDS ORDERED: ATROPINE SULFATE 0.1 MG/ML 5ML SYR IV PRN (16:30)
[2016-08-31] MEDS ORDERED: LABETALOL HCL IV 5 MG/ML 20ML IV PRN (16:30)
[2016-08-31] MEDS ORDERED: HYDROmorphone INJ 1 MG/ML SYR IV PRN (16:30)
[2016-08-31] MEDS ORDERED: MEPERIDINE HCL 25 MG/ML CARP IV PRN (16:30)
[2016-08-31] MEDS ORDERED: ONDANSETRON INJ 2 MG/ML 2 ML VIAL IV PRN (16:30)
[2016-08-31] MEDS ORDERED: BUPIVACAINE 0.5 % 5 MG/1 ML MPF 30ML VIAL ONE (16:49)
[2016-08-31] MEDS ORDERED: BACITRACIN 50000 UNIT VIAL ONE (16:49)
[2016-08-31] MEDS ORDERED: CEFAZOLIN 1000MG/55 ML D5W IV SCH (17:00)
[2016-08-31] MEDS ORDERED: LACTATED RINGER'S 1000ML 1,000 ML IV SCH (17:00)
--- NOTE | 2016-08-31 17:06 | History & Physical Bridge Note ---
H&P Re-Evaluation Bridge Note: I have examined the patient, reviewed the History & Physical and in the interval since the performance of the History & Physical I have noted the following changes of clinical significance: No changes noted
[2016-08-31] MEDS ORDERED: LIDOCAINE HCL 2% 2 ML VIAL (20MG/ML) ONE (18:02)
[2016-08-31] MEDS ORDERED: ONDANSETRON INJ 2 MG/ML 2 ML VIAL ONE (18:02)
[2016-08-31] MEDS ORDERED: PROPOFOL IV EMULSION 10 MG/ML 20 ML VIAL IV ONE (18:02)
[2016-08-31] MEDS ORDERED: GLYCOPYRROLATE INJ 0.2 MG/ML VIAL ONE (18:02)
[2016-08-31] MEDS ORDERED: ROCURONIUM BROMIDE 10 MG/ML 5 ML VIAL ONE (18:02)
[2016-08-31] MEDS ORDERED: DEXAMETHASONE SOD INJ 4 MG/ML VIAL ONE (18:02)
[2016-08-31] MEDS ORDERED: NEOSTIGMINE METHYLSULFATE 5 MG/5 ML SYR ONE (18:02)
[2016-08-31] MEDS ORDERED: PHENYLEPHRINE 100MCG/ML 5ML SYR ONE (18:13)
[2016-08-31] MEDS ORDERED: EpHEDrine SULFATE 50MG/5ML SYR ONE (18:13)
--- NOTE | 2016-08-31 18:36 | [facility] Post Operative Brief Note ---
Immediate Operative Summary Operative Date Aug 31, 2016. Pre-Operative Diagnosis Displaced intraarticular left olecranon fracture Post-Operative Diagnosis Displaced intraarticular left olecranon fracture Procedure(s) Performed Left open reduction internal fixation of olecranon fracture Surgeon Dr. Le Barbering Teacher Surgeon(s) Chago Galan PA-C Estimated Blood Loss 15ml Findings See Dict Specimens none Drains None Anesthesia GLMA w/ local Complication(s) None Disposition Recovery Room / PACU
--- NOTE | 2016-08-31 18:37 | ORTHOPEDIC CONSULTATION REPORT ---
DATE OF CONSULTATION: 08/31/2016 REASON FOR CONSULT: Left elbow fracture. HISTORY OF PRESENT ILLNESS: The patient is an 85-year-old white female who resides by herself in [place] and states that she was sleeping on a couch and was getting up and was still little sleepy and thought she was stepping out of the couch where appeared she ended up just rolling off the couch and injuring herself. She had pain in her left elbow and also had some discomfort in her left chest and was brought to the Emergency Room. She had a friend who had just happened to show up at the time of her fall, who contacted the EMS and was brought to the Emergency Room here at [facility]. X-rays were taken and it was found that she had fractures of her left anterolateral ribs 7 through 10 and also she had an olecranon fracture that was distracted of the left elbow. Hip x-rays showed no fractures and she had a right hip replacement that is in alignment. She was admitted by the medicine service and we have now been asked to take care of her left olecranon fracture. PAST MEDICAL HISTORY: Hypertension, osteoarthritis, osteoporosis, and seizure disorder. PAST SURGICAL HISTORY: Right total hip replacement. She has had a lumbar laminectomy and tonsillectomy in the past. FAMILY AND SOCIAL HISTORY: As per admitting history and physical. MEDICATIONS: Calcium 600 plus D 1 tab p.o. b.i.d., carbamazepine 200 mg p.o. b.i.d., Drisdol 1 cap p.o. monthly, fentanyl patch 12 mcg topically q. 3 days, losartan potassium 1 tab p.o. daily, multiple vitamin 2 caps p.o. daily, potassium chloride 10 mEq p.o. daily, tolterodine tartrate 2 mg p.o. b.i.d. and Zonegran 100 mg p.o. b.i.d., [place] 10/325 one tablet p.o. q. 4 hours p.r.n. ALLERGIES: MURIEL INHIBITORS, ADHESIVES, LATEX, ALENDRONATE, PENICILLINS, ZANTAC, TETRACYCLINE, TOPIRAMATE, VALPROIC ACID, BETA ADRENERGIC BLOCKERS, CODEINE CAUSING NAUSEA, NIFEDIPINE. REVIEW OF SYSTEMS: As per admitting history and physical. PHYSICAL EXAMINATION: EXTREMITIES: On examination of the patient's left upper extremity, she has a posterior splint applied to her left upper extremity and is in a sling. She has good range of motion of her left fingers and has good sensation. Cap refill is less than 2 seconds. Left shoulder is nontender on palpation and taking her through gentle range of motion of the left shoulder did not cause any discomfort. Right upper extremity is benign and not tender on palpation and has good range of motion. Lower extremities are nontender at the hips, knees and ankles. She has range of motion at this time without any discomfort during her range of motion. NECK: She denies neck pain on palpation and has good motion of the neck and denies any classic low back pain at this time or since the fall. She has some anterolateral chest pain of the left chest due to rib fracture. NEUROLOGIC: No gross motor or sensory deficits are noted at this time. Sensations intact in the fingers as noted above. ASSESSMENT: 1. Left displaced olecranon fracture. 2. Fractured ribs 7 through 10, left anterolateral. PLAN: The patient was made n.p.o. this morning after she had eaten breakfast. Plans will be to take her to the operating room today after 4:[address] Le for ORIF of her left olecranon fracture. I have discussed the case with medicine service and she has been cleared for the operating room for the procedure and we will plan for ORIF later this afternoon of the left olecranon.
--- NOTE | 2016-08-31 18:55 | DIAGNOSTIC IMAGING REPORT ---
LEFT ELBOW 2 VIEWS CLINICAL HISTORY: LT ORIF COMPARISON: 08/30/2016 DISCUSSION: Evidence for open reduction internal fixation of the proximal ulnar fracture. Alignment appears anatomic. There is no evidence for soft tissue swelling. IMPRESSION: Anatomic alignment status post open reduction internal fixation Electronically signed by: Ervin Gusman M.D. 08/31/2016 6:54 PM Dictated Date/Time: 08/31/2016 6:53 PM
--- NOTE | 2016-08-31 19:37 | Anesthesiology Progress Note ---
Anesthesia Post Op Note Date & Time Aug 31, 2016 at 19:36 Vital Signs Pain Intensity: 1 Vital Signs Past 12 Hours Date Time Temp Pulse Resp B/P (MAP) Pulse Ox O2 Delivery O2 Flow Rate FiO2 08/31/16 19:15 86 18 173/85 94 Room Air 08/31/16 19:05 90 18 179/88 99 Room Air 08/31/16 18:55 36.9 110 18 186/91 96 Mask 10 08/31/16 16:10 36.9 69 18 153/75 95 Room Air 08/31/16 15:45 Room Air 08/31/16 15:16 36.5 63 18 156/73 (100) 97 Room Air 08/31/16 08:02 36.7 63 16 125/66 (85) 97 Room Air 08/31/16 08:00 Room Air Notes Mental Status: alert / awake / arousable, participated in evaluation Pt Amnestic to Procedure: Yes Nausea / Vomiting: adequately controlled Pain: adequately controlled Airway Patency, RR, SpO2: stable & adequate BP & HR: stable & adequate Hydration State: stable & adequate Anesthetic Complications: no major complications apparent
--- NOTE | 2016-08-31 19:39 | DIAGNOSTIC IMAGING REPORT ---
LEFT ELBOW 2 VIEWS CLINICAL HISTORY: post-op fracture COMPARISON: Images 08/30/2016 DISCUSSION: Patient is now casting material. Poor study technically as the patient could not cooperate. Anatomic alignment status post pinning of the proximal ulna. There is no evidence for soft tissue swelling. IMPRESSION: Limited study due to patient's inability to cooperate. Evidence for pinning of the proximal ulna. Electronically signed by: Ervin Gusman M.D. 08/31/2016 7:38 PM Dictated Date/Time: 08/31/2016 7:36 PM
[2016-08-31 19:50] VITALS: BP 174/81; PULSE 83; TEMP 36.8; O2SAT 96
[2016-08-31 20:20] VITALS: BP 165/78; PULSE 81; TEMP 36.7; O2SAT 95
[2016-08-31 21:50] VITALS: BP 132/68; PULSE 70; TEMP 36.5; O2SAT 98
[2016-08-31 22:49] VITALS: BP 114/67; PULSE 86; TEMP 36.6; O2SAT 97
--- NOTE | 2016-08-31 23:10 | OPERATIVE REPORT ---
DATE OF OPERATION: 08/31/2016 PREOPERATIVE DIAGNOSIS: Left displaced intra-articular olecranon fracture. POSTOPERATIVE DIAGNOSES: Same. PROCEDURE PERFORMED: Open reduction and internal fixation left displaced intra-articular olecranon fracture with application of tension band wire. SURGEON: Dr. Le. TREE AND SHRUB TECHNICIAN: Alex Galan PA-C who was present for patient positioning, sterile prep and drape, management of retractors and instruments. He was present through the critical portions of the case including wound closure, application of sterile dressing and transport of the patient to recovery. ANESTHESIA: General LMA with local. SPECIMENS: None. DRAINS: None. COMPLICATIONS: None. BLOOD LOSS: 15 mL. PERTINENT HISTORY: This is an 85-year-old female who sustained a fall on to her left elbow suffering a left displaced intra-articular olecranon fracture. She was seen in the Emergency Department and admitted to the hospital for further care and management as well as management of ambulatory dysfunction and rib fractures as well as intractable pain. The patient was then evaluated and cleared for surgery and then scheduled for surgery as indicated. All potential risks, benefits, complications, alternatives, rehab, potential for incomplete relief of symptoms, need for further surgery, DVT, PE, , persistent pain, swelling, scarring, weakness, neurovascular injury, wound complications, hardware breakage, bone fracture, nonunion, malunion were discussed with the patient. The patient decided to proceed with the procedure as indicated. DESCRIPTION OF PROCEDURE: The patient was taken to the operative suite, placed supine on the operating room table. I reviewed the consent and identification of proper operative site, the patient was anesthetized, LMA was placed. Tourniquet was placed high on the left upper extremity over cast padding. Left upper extremity was then sterilely prepped and draped in usual fashion, elevated, and exsanguinated with an Esmarch bandage. Tourniquet inflated to 250 mmHg. Next, a 15-blade scalpel was used to make an incision in the midline of the olecranon extending distally over the ulnar border of the ulna. The incision was then carefully deepened through the subcutaneous tissue. Meticulous hemostasis was achieved with electrocautery and there was noted to be significant hematoma from the fall and fracture localized around the area of the olecranon. After this was suctioned and irrigated until clear, the fracture fragments were then clearly identified. The articular surface was noted to be intact with displacement of the olecranon in an intraarticular fracture pattern. Next, the fracture was then carefully reduced using a large Das reduction forceps and placed in two 0.062 inch K wires from the olecranon crossing the fracture into the anterior aspect of the ulna in an extraarticular pinning fashion. This was performed under live fluoroscopic assistance. This was then followed by drilling of a 2.5 mm drill hole in the more distal ulna for a tension band construct with an 18 gauge surgical wire, which was then passed through the intramedullary canal of the ulna, passed through a sharp catheter placed adjacent to the olecranon bone under the triceps insertion followed by tensioning of the tension band with heavy needle emergency detail driver. After this was completed, excess wire was removed. The wire was then bent and placed in a soft tissue pouch adjacent to the ulna on the opposite side to avoid any irritation of the ulnar nerve. Next, the 0.062 inch K wires were then bent, cut and then tamped into the bone and soft tissue with a small bone tamp and mallet to avoid any hardware irritation. Next, the wound was copiously irrigated with sterile normal saline. Final x-rays obtained in AP and lateral projections followed by closure of the fascia and bursa with 2-0 Vicryl. The dermis was closed using buried interrupted 3-0 Vicryl, the skin was then closed using nylon sutures. The incision was then infiltrated with 0.5% Marcaine plain, as well as the fracture site for postop pain control. Next, a gently sterile compressive dressing was applied, overwrapped with a posterior plaster splint and Ron wrap. The elbow was held in neutral flexion and neutral rotation. The tourniquet was released. The patient was awakened and taken to recovery in stable condition. I attest to the content of the Intraoperative Record and any orders documented therein. Any exception s are noted below.
[2016-09-01] MEDS: CHECK FENTANYL PATCH PLACEMENT SCH ×4 (00:20→23:25)
[2016-09-01] MEDS: CEFAZOLIN IV 1,000 MG in DEXTROSE 5% 50ML 50 ML IV SCH ×3 (01:51→19:07)
[2016-09-01 03:59] VITALS: BP 124/61; PULSE 77; TEMP 36.6; O2SAT 98
[2016-09-01] MEDS: MoRPHine SULFATE 2 MG/ML CARP IV PRN ×4 (04:50→23:36)
[2016-09-01 05:23] LABS: HEMATOCRIT 29.4 % (37-47); MEAN CELL VOLUME 93.3 fL (80-100); MEAN CORPUSCULAR HEMOGLOBIN 31.1 pg (25-34); MEAN CORPUSCULAR HGB CONC 33.3 g/dl (32-36); MEAN PLATELET VOLUME 8.2 fL (7.4-10.4); PLATELET COUNT 207 K/uL (130-400); RED BLOOD COUNT 3.15 M/uL (4.2-5.4); WHITE BLOOD COUNT 8.57 K/uL (4.8-10.8)
[2016-09-01 05:47] LABS: BUN/CREATININE RATIO 16.9 (10-20); CALCIUM 9.3 mg/dl (8.5-10.1); CREATININE 0.72 mg/dl (0.60-1.20)
[2016-09-01 07:48] VITALS: BP 130/56; PULSE 78; TEMP 36.8; O2SAT 97
[2016-09-01 07:53] VITALS: O2SAT 97
[2016-09-01] MEDS: CARBAMAZEPINE 200 MG TABCR PO SCH ×2 (08:31→20:31)
[2016-09-01] MEDS: CALCIUM 600MG + VIT D 400 IU TAB PO SCH ×2 (08:31→20:31)
[2016-09-01] MEDS: ZONISAMIDE 100 MG CAP PO SCH ×2 (08:31→20:30)
[2016-09-01] MEDS: POTASSIUM CHLORIDE 10 MEQ TABCR PO SCH (08:32)
[2016-09-01] MEDS: LOSARTAN POTASSIUM 50 MG TAB PO SCH (08:32)
[2016-09-01] MEDS: CEROVITE ADV FORMULA TAB PO SCH (08:32)
--- NOTE | 2016-09-01 08:37 | Orthopedic Progress Note ---
Orthopedic Progress Note Date of Service Sep 01, 2016. Subjective Post OP Day: 1 Reports: feeling well, complaints (PAIN IN ELBOW. NO PO MEDS ORDERED EXCEPT TYLENOL), Denies: chest pain, SOB, nausea / vomiting, light headedness, calf pain Objective N/V intact, splint C/D/I, dressing C/D/I, A&O x3, CMS intact FINGERS MOBILE. MINIMAL SWELLING. Date Time Temp Pulse Resp B/P (MAP) Pulse Ox O2 Delivery O2 Flow Rate FiO2 09/01/16 07:53 97 09/01/16 07:48 36.8 78 20 130/56 (80) 97 Room Air 09/01/16 03:59 36.6 77 16 124/61 (82) 98 Room Air 09/01/16 00:05 Room Air 08/31/16 22:49 36.6 86 18 114/67 (83) 97 Room Air 08/31/16 21:50 36.5 70 18 132/68 (89) 98 Room Air 08/31/16 20:20 36.7 81 12 165/78 (107) 95 Room Air 08/31/16 19:50 36.8 83 16 174/81 (112) 96 Room Air 08/31/16 19:50 96 Room Air 08/31/16 19:30 36.5 89 18 158/80 95 Room Air 08/31/16 19:15 86 18 173/85 94 Room Air 08/31/16 19:05 90 18 179/88 99 Room Air 08/31/16 18:55 36.9 110 18 186/91 96 Mask 10 08/31/16 16:10 36.9 69 18 153/75 95 Room Air 08/31/16 15:45 Room Air 08/31/16 15:16 36.5 63 18 156/73 (100) 97 Room Air Laboratory Results 24 Hours: Test 09/01/16 04:50 Hematocrit 29.4 % Hemoglobin 9.8 g/dL Assessment & Plan Assessment: POD#1 SP ORIF LEFT ELBOW Plan: ORDERED PO ROXICODONE, CAN HAVE A DOSE NOW. Inhouse Planning Pain Management: PO Tylenol, Oxy IR Discharge Planning Discharge Planning: home
[2016-09-01] MEDS: OXYCODONE HCL IR 5 MG TAB (IMMEDIATE RELEASE) PO PRN ×3 (08:44→21:52)
--- NOTE | 2016-09-01 09:54 | Anesthesiology Progress Note ---
Anesthesia Post Op Note Date & Time Sep 01, 2016 at 09:54 Vital Signs Pain Intensity: 9.0 Vital Signs Past 12 Hours Date Time Temp Pulse Resp B/P (MAP) Pulse Ox O2 Delivery O2 Flow Rate FiO2 09/01/16 07:53 97 09/01/16 07:48 36.8 78 20 130/56 (80) 97 Room Air 09/01/16 03:59 36.6 77 16 124/61 (82) 98 Room Air 09/01/16 00:05 Room Air 08/31/16 22:49 36.6 86 18 114/67 (83) 97 Room Air Notes Mental Status: alert / awake / arousable, participated in evaluation Pt Amnestic to Procedure: Yes Nausea / Vomiting: adequately controlled Pain: adequately controlled Airway Patency, RR, SpO2: stable & adequate BP & HR: stable & adequate Hydration State: stable & adequate Anesthetic Complications: no major complications apparent
[2016-09-01 12:07] VITALS: BP 150/71; PULSE 78; TEMP 37.8; O2SAT 97
--- NOTE | 2016-09-01 12:55 | Progress Note ---
Internal Med Progress Note Date of Service: Sep 01, 2016. Provider Documentation: SUBJECTIVE: Seen and examined at bedside. States having LUE pain at surgical site. Denies chest pain, SOB. Offers no other complaints. OBJECTIVE: Vital Signs-as noted below Physical Exam: General Appearance:Moderately built and nourished, no apparent distress Head: normocephalic, Atraumatic Eyes: normal inspection, EOMI, PERRL Neck: supple, Trachea midline Respiratory/Chest: Normal breath sounds, CTA Cardiovascular: S1, S2, No murmur Abdomen/GI:Soft, Non tender, Bowel sounds present Extremities/Musculoskelatal:normal inspection, no edema, LUE in surgical bandage Neurologic/Psych:AAOX3, grossly no focal neurological deficits Skin: normal color, warm Lab data as noted below. ASSESSMENT & PLAN: Patient is an 85 yr F with osteoporosis presents with L elbow fracture and multiple L rib fractures after traumatic fall. LEFT OLECRANON FRACTURE S/P MECHANICAL FALL S/O L Olecranon ORIF POD #1 CXR- Rib fractures 7-10, left and no other acute abnormalities Pain control Appreciate Orthopedics help Left Rib fractures: X ray- -10th , left non displaced fractures Conservative management H/O Epilepsy Stable Continue current medications HTN Stable Continue losartan OSTEOPOROSIS Vitamin D level 41- normal Continue with calcium supplements ABNORMAL UA No urinary symptoms Urine cx- contaminated S/P IV Rocephin: discontinued H/O R hip Arthroplasty Chronic Hyponatremia: Stable DVT Px: heparin SQ Code Status: DNR DISPOSITION Plan to DC to rehab when stable Wood Heel Flap Trimmer, PT/OT consulted Vital Signs: Date Time Temp Pulse Resp B/P (MAP) Pulse Ox O2 Delivery O2 Flow Rate FiO2 09/01/16 12:07 37.8 78 24 150/71 (97) 97 Room Air 09/01/16 08:30 Room Air 09/01/16 07:53 97 Room Air 09/01/16 07:48 36.8 78 20 130/56 (80) 97 Room Air 09/01/16 03:59 36.6 77 16 124/61 (82) 98 Room Air 09/01/16 00:05 Room Air 08/31/16 22:49 36.6 86 18 114/67 (83) 97 Room Air 08/31/16 21:50 36.5 70 18 132/68 (89) 98 Room Air 08/31/16 20:20 36.7 81 12 165/78 (107) 95 Room Air 08/31/16 19:50 36.8 83 16 174/81 (112) 96 Room Air 08/31/16 19:50 96 Room Air 08/31/16 19:30 36.5 89 18 158/80 95 Room Air 08/31/16 19:15 86 18 173/85 94 Room Air 08/31/16 19:05 90 18 179/88 99 Room Air 08/31/16 18:55 36.9 110 18 186/91 96 Mask 10 08/31/16 16:10 36.9 69 18 153/75 95 Room Air 08/31/16 15:45 Room Air 08/31/16 15:16 36.5 63 18 156/73 (100) 97 Room Air Lab Results: Results Past 24 Hours Test 09/01/16 04:50 Range/Units White Blood Count 8.57 4.8-10.8 K/uL Red Blood Count 3.15 4.2-5.4 M/uL Hemoglobin 9.8 12.0-16.0 g/dL Hematocrit 29.4 37-47 % Mean Corpuscular Volume 93.3 80-100 fL Mean Corpuscular Hemoglobin 31.1 25-34 pg Mean Corpuscular Hemoglobin Concent 33.3 32-36 g/dl RDW Standard Deviation 44.3 36.4-46.3 fL RDW Coefficient of Variation 13.1 11.5-14.5 % Platelet Count 207 130-400 K/uL Mean Platelet Volume 8.2 7.4-10.4 fL Sodium Level 130 136-145 mmol/L Potassium Level 4.0 3.5-5.1 mmol/L Chloride Level 94 98-107 mmol/L Carbon Dioxide Level 28 21-32 mmol/L Anion Gap 8.0 3-11 mmol/L Blood Urea Nitrogen 12 7-18 mg/dl Creatinine 0.72 0.60-1.20 mg/dl Est Creatinine Clear Calc Drug Dose 37.9 ml/min Estimated GFR () 88.5 Estimated GFR (Non- 76.4 BUN/Creatinine Ratio 16.9 10-20 Random Glucose 107 70-99 mg/dl Calcium Level 9.3 8.5-10.1 mg/dl
[2016-09-01 15:04] VITALS: BP 130/66; TEMP 37.2; O2SAT 95
--- NOTE | 2016-09-01 15:45 | Orthopedic Progress Note ---
Orthopedic Progress Note Date of Service Sep 01, 2016. Subjective Post OP Day: 1 Reports: feeling well, Denies: SOB, nausea / vomiting Additional Notes: Pain in the left elbow. States she recently asked for pain meds. Objective N/V intact, splint C/D/I, capillary refill less than 2 sec., dressing C/D/I, A& O x3 Left hand fingers are mobile. Sensation intact distally in the LUE. Date Time Temp Pulse Resp B/P (MAP) Pulse Ox O2 Delivery O2 Flow Rate FiO2 09/01/16 15:04 37.2 16 130/66 (87) 95 Room Air 09/01/16 12:07 37.8 78 24 150/71 (97) 97 Room Air 09/01/16 08:30 Room Air 09/01/16 07:53 97 Room Air 09/01/16 07:48 36.8 78 20 130/56 (80) 97 Room Air 09/01/16 03:59 36.6 77 16 124/61 (82) 98 Room Air 09/01/16 00:05 Room Air 08/31/16 22:49 36.6 86 18 114/67 (83) 97 Room Air 08/31/16 21:50 36.5 70 18 132/68 (89) 98 Room Air 08/31/16 20:20 36.7 81 12 165/78 (107) 95 Room Air 08/31/16 19:50 36.8 83 16 174/81 (112) 96 Room Air 08/31/16 19:50 96 Room Air 08/31/16 19:30 36.5 89 18 158/80 95 Room Air 08/31/16 19:15 86 18 173/85 94 Room Air 08/31/16 19:05 90 18 179/88 99 Room Air 08/31/16 18:55 36.9 110 18 186/91 96 Mask 10 08/31/16 16:10 36.9 69 18 153/75 95 Room Air 08/31/16 15:45 Room Air Laboratory Results 24 Hours: Test 09/01/16 04:50 Hematocrit 29.4 % Hemoglobin 9.8 g/dL Assessment & Plan Assessment: POD#1 SP ORIF LEFT Olecranon fx Plan: ORDERED PO ROXICODONE Keep splint in place at all times. Sling as needed F/U in [address] Le's office. Ortho will sign off at this time. Inhouse Planning Pain Management: PO Tylenol, Oxy IR Discharge Planning Discharge Planning: rehab hospital
--- NOTE | 2016-09-01 15:47 | Consultant Recommendations ---
Cashier And Waiter/Waitress Recommendations Date of Service Sep 01, 2016. Cashier And Waiter/Waitress Recommendations ACTIVITY RECOMMENDATIONS: * Avoid lifting anything with the left upper extremity until your first post operative visit. SPECIAL CARE INSTRUCTIONS: * Your bandage should be left in place until your follow up visit in 2 weeks. * Some drainage onto the dressing may occur. This is normal. * If the bandage feels excessively tight, you may loosen the elastic bandage. Then call the physician's office for further instructions. * If possible, keep your hand elevated above the level of your heart for the first 2 post operative days. You may use a sling if necessary. * You should move your fingers regularly (50-100 motions per hour) unless otherwise instructed. SPECIAL PRECAUTIONS: * If you notice increased drainage, fever over 101 degrees F. or severe, unremitting pain, call your physician/office at . * You may have been prescribed pain medication. If you experience nausea and/or skin rash, discontinue this medication and contact our office for an alternative medication. FOLLOW UP VISIT: If appointment is not already scheduled: Please call [facility] to make a follow-up appointment with Dr. Le for 2 weeks after your surgery at .
[2016-09-01] MEDS: ONDANSETRON INJ 2 MG/ML 2 ML VIAL IV PRN (20:30)
[2016-09-01] MEDS: ACETAMINOPHEN 325 MG TAB PO PRN (21:51)
[2016-09-01 23:06] VITALS: BP 147/72; PULSE 84; TEMP 36.9; O2SAT 97
[2016-09-02 07:18] LABS: BASO % 0.5 %; BASO ABS # 0.04 K/uL (0-0.2); COMPLETE YES; EOS % 1.8 %; HEMATOCRIT 27.4 % (37-47); IG% 0.4 %; LYMPH % 17.5 %; LYMPH ABS # 1.42 K/uL (1.2-3.4); MEAN CELL VOLUME 92.6 fL (80-100); MEAN CORPUSCULAR HEMOGLOBIN 31.4 pg (25-34); MEAN CORPUSCULAR HGB CONC 33.9 g/dl (32-36); MEAN PLATELET VOLUME 8.5 fL (7.4-10.4); MONO % 18.4 %; NEUT % 61.4 %; PLATELET COUNT 205 K/uL (130-400); RED BLOOD COUNT 2.96 M/uL (4.2-5.4); WHITE BLOOD COUNT 8.11 K/uL (4.8-10.8)
[2016-09-02 07:27] VITALS: BP 134/66; PULSE 72; TEMP 37; O2SAT 97
[2016-09-02 07:31] VITALS: O2SAT 97
[2016-09-02 08:03] LABS: BUN/CREATININE RATIO 17.9 (10-20); CALCIUM 8.9 mg/dl (8.5-10.1); CREATININE 0.61 mg/dl (0.60-1.20); POTASSIUM 3.9 mmol/L (3.5-5.1)
[2016-09-02] MEDS: CHECK FENTANYL PATCH PLACEMENT SCH ×2 (08:33→16:00)
[2016-09-02 08:35] VITALS: O2SAT 97
[2016-09-02 09:48] VITALS: BP 102/65; PULSE 90
[2016-09-02] MEDS: ZONISAMIDE 100 MG CAP PO SCH (09:49)
[2016-09-02] MEDS: LOSARTAN POTASSIUM 50 MG TAB PO SCH (09:49)
[2016-09-02] MEDS: CALCIUM 600MG + VIT D 400 IU TAB PO SCH (09:49)
[2016-09-02] MEDS: CARBAMAZEPINE 200 MG TABCR PO SCH (09:50)
[2016-09-02] MEDS: POTASSIUM CHLORIDE 10 MEQ TABCR PO SCH (09:50)
[2016-09-02] MEDS: CEROVITE ADV FORMULA TAB PO SCH (09:50)
[2016-09-02] MEDS: OXYCODONE HCL IR 5 MG TAB (IMMEDIATE RELEASE) PO PRN (11:30)
[2016-09-02 12:11] VITALS: BP 134/64; PULSE 90; TEMP 36.9; O2SAT 99
--- NOTE | 2016-09-02 13:33 | Progress Note ---
Internal Med Progress Note Date of Service: Sep 02, 2016. Provider Documentation: SUBJECTIVE: Seen and examined at bedside. States LUE pain is much controlled. Denies chest pain, SOB. Offers no other complaints. OBJECTIVE: Vital Signs-as noted below Physical Exam: General Appearance:Moderately built and nourished, no apparent distress Head: normocephalic, Atraumatic Eyes: normal inspection, EOMI, PERRL Neck: supple, Trachea midline Respiratory/Chest: Normal breath sounds, CTA Cardiovascular: S1, S2, No murmur Abdomen/GI:Soft, Non tender, Bowel sounds present Extremities/Musculoskelatal:normal inspection, no edema, LUE in surgical bandage Neurologic/Psych:AAOX3, grossly no focal neurological deficits Skin: normal color, warm Lab data as noted below. ASSESSMENT & PLAN: Patient is an 85 yr F with osteoporosis presents with L elbow fracture and multiple L rib fractures after traumatic fall. LEFT OLECRANON FRACTURE S/P MECHANICAL FALL S/O L Olecranon ORIF POD #2 CXR- Rib fractures 7-10, left and no other acute abnormalities Pain control Advised to keep splint in place at all times. Use Sling as needed Needs follow up with Dr. Le in 2 weeks Ortho signed off. Left Rib fractures: X ray- -10th , left non displaced fractures Conservative management H/O Epilepsy Stable Continue current medications HTN Stable Continue losartan OSTEOPOROSIS Vitamin D level 41- normal Continue with calcium supplements ABNORMAL UA No urinary symptoms Urine cx- contaminated S/P IV Rocephin: discontinued H/O R hip Arthroplasty Chronic Hyponatremia: Stable Monitor DVT Px: heparin SQ Code Status: DNR DISPOSITION Plan to [facility] Nurse Chemical Dependency, PT/OT consulted Follow up with PCP on 09/07/16 at 3:00 pm Follow up with Orthopedics in 2 weeks Vital Signs: Date Time Temp Pulse Resp B/P (MAP) Pulse Ox O2 Delivery O2 Flow Rate FiO2 09/02/16 12:11 36.9 90 21 134/64 (87) 99 Room Air 09/02/16 09:48 90 102/65 (77) 09/02/16 08:35 97 09/02/16 07:31 97 Room Air 09/02/16 07:27 37.0 72 18 134/66 (88) 97 Room Air 09/01/16 23:20 Room Air 09/01/16 23:06 36.9 84 20 147/72 (97) 97 Room Air 09/01/16 15:30 Room Air 09/01/16 15:04 37.2 16 130/66 (87) 95 Room Air Lab Results: Results Past 24 Hours Test 09/02/16 06:25 Range/Units White Blood Count 8.11 4.8-10.8 K/uL Red Blood Count 2.96 4.2-5.4 M/uL Hemoglobin 9.3 12.0-16.0 g/dL Hematocrit 27.4 37-47 % Mean Corpuscular Volume 92.6 80-100 fL Mean Corpuscular Hemoglobin 31.4 25-34 pg Mean Corpuscular Hemoglobin Concent 33.9 32-36 g/dl Platelet Count 205 130-400 K/uL Mean Platelet Volume 8.5 7.4-10.4 fL Neutrophils (%) (Auto) 61.4 % Lymphocytes (%) (Auto) 17.5 % Monocytes (%) (Auto) 18.4 % Eosinophils (%) (Auto) 1.8 % Basophils (%) (Auto) 0.5 % Neutrophils # (Auto) 4.98 1.4-6.5 K/uL Lymphocytes # (Auto) 1.42 1.2-3.4 K/uL Monocytes # (Auto) 1.49 0.11-0.59 K/uL Eosinophils # (Auto) 0.15 0-0.5 K/uL Basophils # (Auto) 0.04 0-0.2 K/uL RDW Standard Deviation 44.0 36.4-46.3 fL RDW Coefficient of Variation 12.8 11.5-14.5 % Immature Granulocyte % (Auto) 0.4 % Immature Granulocyte # (Auto) 0.03 0.00-0.02 K/uL Sodium Level 126 136-145 mmol/L Potassium Level 3.9 3.5-5.1 mmol/L Chloride Level 92 98-107 mmol/L Carbon Dioxide Level 26 21-32 mmol/L Anion Gap 8.0 3-11 mmol/L Blood Urea Nitrogen 11 7-18 mg/dl Creatinine 0.61 0.60-1.20 mg/dl Est Creatinine Clear Calc Drug Dose 44.7 ml/min Estimated GFR () 95.8 Estimated GFR (Non- 82.7 BUN/Creatinine Ratio 17.9 10-20 Random Glucose 92 70-99 mg/dl Calcium Level 8.9 8.5-10.1 mg/dl
[2016-09-02] MEDS ORDERED: HYDR-4383 PO (13:47)
[2016-09-02] MEDS ORDERED: DRGTP12 TOP (13:47)
--- NOTE | 2016-09-02 13:49 | Discharge Summary ---
Discharge Summary Date of Service Sep 02, 2016. Discharge Summary Admission Date: Aug 30, 2016 at 16:17 Discharge Date: Sep 02, 2016 Discharge Disposition: Rehab Principal Diagnosis: Left Elbow fracture S/P ORIF Procedures: Rib Series: 1. The lungs are clear and there is no pneumothorax. 2.There are acute and nondistracted left anterolateral 7th through 10th rib fractures seen on the rib series. R hip X ray: 1. There is no radiographic evidence of right hip fracture. 2. A right hip arthroplasty is in near-anatomic alignment. Elbow X ray: 1. There is a distracted fracture of the olecranon process with associated joint effusion and soft tissue edema. 2. No additional fracture is seen. S/P ORIF LEFT Olecranon fx Consultations: Orthopedics Pending Studies/Follow-Up: Follow up with PCP on 09/07/16 at 3:00 pm Follow up with Orthopedics in 2 weeks Medication Reconciliation Continued Medications: Calcium Carbonate-Vitamin D (Calcium 600 + D) 1 Tab Tab 1 TAB PO BID Carbamazepine (Carbatrol Er) 200 Mg Capcr 200 MG PO BID, CAP Ergocalciferol (Drisdol) 50,000 Unit Cap 1 CAP PO MONTHLY Fentanyl (Fentanyl) 12 Mcg Tdsy 12 MCG TOP Q3D for 9 Days, #3 (This prescription has been renewed) Hydrocodone/Acetaminophen (Bloomery 10/325 Tab) 1 Tab Tab 1 TAB PO Q4H PRN for Pain for 3 Days, #12 TAB (This prescription has been renewed) Losartan Potassium (Cozaar) 50 Mg Tab 1 TAB PO DAILY, 0 Refills Multiple Vitamins W/ Minerals (Preservision Areds) 1 Cap Cap 2 CAP PO DAILY Potassium Chloride (K-Tabs) 10 Meq Tabcr 10 MEQ PO DAILY Tolterodine Tartrate (Tolterodine Tartrate) 2 Mg Tab 2 MG PO BID Zonisamide (Zonegran) 100 Mg Cap 100 MG PO BID, 0 Refills Admission Information HPI (per Admitting provider): 85 yo F with OA presents with L elbow pain and swelling after rolling off of her couch onto her floor. Workup in the ER reveals a L exbow fracture and several L rib fractures. She reports some pain in those areas, but states that it is controlled. She has had surgeries in the past with no problems tolerating anesthesia. She denies a history of blood clot. She denies any history of chest pain or shortness of breath in the past 6 months and denies any history of heart or lung disease. At baseline, she is very functional as she lives alone. She states she takes care of everything for herself and can climb a flight of steps without any issues. She does has a h/o R hip replacement and reports some chronic pain in that joint for which she takes Fentanyl successfully. She reports h/o epilepsy but denies any h/o seizure in years. Dr Le was contacted by the ER staff and is aware of the patient. He asked for Medicine team to admit and he will see the patient in consult. Physical Exam (per Admitting): GEN: elderly, frail, in no acute distress, alert and appropriate HEENT: NC/AT, PERRL, normal sclerae, MMM, pharynx non-acute, no LAD CARDIO: reg rate, S1/2 heard without m/g/r LUNGS: CTA bilaterally, no crackles, rales or wheezes, good diaphragmatic excursion ABD: soft, non-tender, non-distended, no rebound or guarding, +BS EXTREMITY: 2+ pulses throughout, L elbow is swollen and erythematous-localized over olecranon process, cannot fully extend, sensation intact in distal extremity, moves all fingers without issue. NEURO: CN 2-12 grossly intact, sensation intact throughout MUSC: limited movement of L arm as above, some difficulty moving R leg because of R hip pain, otherwise strength appears 5/5 throughout. SKIN: warm and dry and changes as above. Hospital Course Patient is an 85 yr F with osteoporosis presents with L elbow fracture and multiple L rib fractures after traumatic fall. LEFT OLECRANON FRACTURE S/P MECHANICAL FALL S/O L Olecranon ORIF POD #2 CXR- Rib fractures 7-10, left and no other acute abnormalities Pain control Advised to keep splint in place at all times. Use Sling as needed Needs follow up with Dr. Le in 2 weeks Ortho signed off. 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 Discharge Instructions Discharge Instructions Date of Service Sep 02, 2016. Admission Reason for Admission: Elbow Fracture, Left Discharge Discharge Diagnosis / Problem: Left Elbow fracture S/P ORIF Discharge Goals Goal(s): Decrease discomfort, Improve function Activity Recommendations Activity Limitations: per Instructions/Follow-up section Exercise/Sports Limitations: as tolerated . Instructions / Follow-Up Instructions / Follow-Up Follow up with PCP on 09/07/16 at 3:00 pm Follow up with Orthopedics in 2 weeks Current Hospital Diet Patient's current hospital diet: Regular Diet Discharge Diet Recommended Diet: Regular Diet Procedures Procedures Performed: Left open reduction internal fixation of olecranon fracture Pending Studies Studies pending at discharge: no Medical Emergencies . Who to Call and When: Medical Emergencies: If at any time you feel your situation is an emergency, please call 911 immediately. . Non-Emergent Contact Non-Emergency issues call your: Primary Care Provider, Surgeon Call Non-Emergent contact if: you have a fever, your pain is not controlled, your pain is worsening, your pain is unusual for you, you have any medication questions . . "Provider Documentation" section prepared by Cesar Simental. . Engine Boss Recommendations Engine Boss Recommendations: ACTIVITY RECOMMENDATIONS: * Avoid lifting anything with the left upper extremity until your first post operative visit. SPECIAL CARE INSTRUCTIONS: * Your bandage should be left in place until your follow up visit in 2 weeks. * Some drainage onto the dressing may occur. This is normal. * If the bandage feels excessively tight, you may loosen the elastic bandage. Then call the physician's office for further instructions. * If possible, keep your hand elevated above the level of your heart for the first 2 post operative days. You may use a sling if necessary. * You should move your fingers regularly (50-100 motions per hour) unless otherwise instructed. SPECIAL PRECAUTIONS: * If you notice increased drainage, fever over 101 degrees F. or severe, unremitting pain, call your physician/office at . * You may have been prescribed pain medication. If you experience nausea and/or skin rash, discontinue this medication and contact our office for an alternative medication. FOLLOW UP VISIT: If appointment is not already scheduled: Please call [facility] to make a follow-up appointment with Dr. Le for 2 weeks after your surgery at . VTE Core Measure Inpt VTE Proph given/why not?: Unfractionated heparin SQ
[2016-09-02 16:22] VITALS: BP 134/64; PULSE 90; TEMP 36.9; O2SAT 99
== END 2016-09-02 17:00 | DRG 512 ==
LOC: EDBD 12:44 → C.EDB 12:45 → C.MSW 16:17 → ENRESERV 16:46
PROVIDERS: ADMIT Hospitalist; ATTEND Internal Medicine
PROC: 0PSL04Z Reposition Left Ulna with Internal Fixation Device, Open Approach (ICD-10-PCS; principal; 2016-08-31 11:15)
DX: M80.032A Age-related osteoporosis with current pathological fracture, left forearm, initial encounter for fracture (principal); M84.48XA Pathological fracture, other site, initial encounter for fracture; G40.909 Epilepsy, unspecified, not intractable, without status epilepticus; Z96.641 Presence of right artificial hip joint; I10 Essential (primary) hypertension; Z91.040 Latex allergy status; M19.90 Unspecified osteoarthritis, unspecified site; Z88.0 Allergy status to penicillin; W17.89XA Other fall from one level to another, initial encounter; Y92.018 Other place in single-family (private) house as the place of occurrence of the external cause; Y93.01 Activity, walking, marching and hiking

== ENCOUNTER 2016-09-27 09:26 | Emergency (ER) | payer OTHER ==
[~2016-09-27] VITALS: Ht 157.5 cm; Wt 40.8 kg
[~2016-09-27 09:26] MED LIST changes: -ATV5X PO; +CARB1CAP8 PO; +DRGTP12 TOP; -ERGO500011 PO; +ERGO50002 PO; -HYDR-4079 PO; +HYDR-4383 PO; -LOSA1TAB PO; +LOSA50TA6 PO; +MCRK/10 PO; -POTA-327 PO; -TGR100 PO; +TOLT2TAB9 PO
[2016-09-27 09:32] VITALS: TEMP 36.9; Ht 157.5 cm; Wt 40.8 kg
[2016-09-27] MEDS ORDERED: OXYCODONE HCL IR 5 MG TAB (IMMEDIATE RELEASE) PO STA (10:07)
--- NOTE | 2016-09-27 11:13 | DIAGNOSTIC IMAGING REPORT ---
SINGLE VIEW PELVIS CLINICAL HISTORY: Fall. FINDINGS: An AP pelvic radiograph is compared to study dated 02/05/2011. Correlation is made with pelvic CT dated 04/21/2011. The skeletal structures are osteopenic. No fracture is identified in the hips or bony pelvis. A right hip arthroplasty is in near-anatomic alignment. No periprosthetic lucency is seen. Moderate to advanced arthritic change is noted in the left hip. Lumbosacral spondylosis is partially imaged. Sclerotic change is noted in the sacroiliac joints. The overlying soft tissues are within normal limits. There is a nonobstructed abdominal bowel gas pattern. Pelvic calcifications are similar to 2010. IMPRESSION: 1. No acute fracture is identified involving the hips or bony pelvis. 2. Osteopenia, arthritic change, and right hip arthroplasty as above. Electronically signed by: Travis Khalil M.D. 09/27/2016 11:12 AM Dictated Date/Time: 09/27/2016 11:09 AM
--- NOTE | 2016-09-27 11:26 | DIAGNOSTIC IMAGING REPORT ---
AP CHEST WITH LEFT-SIDED RIB SERIES CLINICAL HISTORY: Fall. Left rib pain. FINDINGS: An AP supine chest radiograph with 3 additional views from a left-sided rib series is compared to study dated 08/30/2016. The AP view is degraded by patient rotation. The heart is top normal for projection and there is atherosclerotic calcification of the thoracic aorta. Chronic interstitial thickening is unchanged. No airspace consolidation, pleural effusion, or pneumothorax is seen. The skeletal structures are osteopenic. There are numerous healed left-sided rib fractures. There are subacute and nondistracted left anterolateral 7th through 10th rib fractures seen on the rib series. These were also identified on 08/30/2016. No new fracture is identified. Degenerative change and moderate scoliosis is noted in the thoracic spine. Fusion hardware is partially imaged in the lumbar spine. Postoperative change is also seen in the left elbow. IMPRESSION: 1. The lungs are clear and there is no pneumothorax. 2.No acute left-sided rib fracture is identified on the rib series. There are subacute left anterolateral 7th through 10th rib fractures. These were also seen on 08/30/2016. Electronically signed by: Travis Khalil M.D. 09/27/2016 11:24 AM Dictated Date/Time: 09/27/2016 11:22 AM
--- NOTE | 2016-09-27 11:31 | DIAGNOSTIC IMAGING REPORT ---
LEFT SHOULDER 3 VIEWS CLINICAL HISTORY: Fall with left shoulder pain. FINDINGS: 3 views of the left shoulder are obtained. Correlation is made with left-sided rib series performed concurrently on 09/27/2016. The skeletal structures are osteopenic. There is no radiographic evidence of left shoulder fracture or dislocation. The acromioclavicular joint is maintained. Mild to moderate arthritic change is seen at the glenohumeral articulation. The overlying soft tissues are within normal limits. There are several subacute and healing left-sided rib fractures. There is atherosclerotic calcification of the thoracic aorta. The imaged left lung parenchyma appears clear. IMPRESSION: Osteopenia and arthritic change as above. No fracture or dislocation is seen in the left shoulder. Electronically signed by: Travis Khalil M.D. 09/27/2016 11:29 AM Dictated Date/Time: 09/27/2016 11:28 AM
--- NOTE | 2016-09-27 11:42 | DIAGNOSTIC IMAGING REPORT ---
LEFT ELBOW 3 VIEWS CLINICAL HISTORY: Fall with left elbow pain. FINDINGS: 3 views of left elbow are compared to study dated 08/31/2016. The examination is degraded by an overlying brace/traction device, especially the lateral view. There are postoperative changes seen from pinning of the olecranon process of the ulna. No acute fracture is clearly identified. The joint spaces appear maintained. Degenerative spurring is noted along the medial and lateral aspect of the joint space. Joint effusion cannot be assessed on the lateral view. Soft tissue swelling is present around the elbow. IMPRESSION: 1. Soft tissue swelling with no clear evidence of acute fracture. 2. Osteopenia, degenerative change, and postoperative change as above. Electronically signed by: Travis Khalil M.D. 09/27/2016 11:41 AM Dictated Date/Time: 09/27/2016 11:38 AM
--- NOTE | 2016-09-27 11:43 | DIAGNOSTIC IMAGING REPORT ---
LEFT FOREARM 2 VIEWS CLINICAL HISTORY: Fall with left arm pain. FINDINGS: AP and lateral views of the left forearm are obtained. No prior studies are available for comparison at the time of dictation. The examination is degraded by overlying brace/traction device. The skeletal structures are osteopenic. There is no clear radiographic evidence of left forearm fracture. Postoperative change/pinning is noted in the proximal ulna. Arthritic changes are noted in the wrist and elbow joints. Mild soft tissue swelling is present. IMPRESSION: 1. Soft tissues swelling with no clear evidence of acute left forearm fracture. 2. Osteopenia and postoperative change as above. Electronically signed by: Travis Khalil M.D. 09/27/2016 11:42 AM Dictated Date/Time: 09/27/2016 11:41 AM
--- NOTE | 2016-09-27 12:04 | EMERGENCY ROOM VISIT NOTE ---
History Report prepared by Serge: Nitin Shay Under the Supervision of: Dr. Heidi Jo D.O. First contact with patient: 09:52 Chief Complaint: ARM PAIN Stated Complaint: FALL/ARM PAIN History of Present Illness The patient is a 85 year old female who presents to the Emergency Room with complaints of constant left arm pain s/p fall occurring just prior to arrival. She is a resident at the [facility]. She states that she fell shortly after waking up while searching for her walker. The patient believes that she tripped on something while trying to use her one handed walker. She notes that her left lower arm and left sided ribs are broken from a previous fall. She states that she broke the arm several weeks ago, and the fracture required surgery. She rates her current pain as a 5/10 in severity. The patient feels that she landed primarily on her left shoulder this morning. She did not hit her head or lose consciousness. She denies any chest pain, abdominal pain, hip pain, numbness, weakness, visual changes, or SOB. The patient has not had her normal chronic pain medicine today. Source of History: patient Onset: Just prior to arrival Position: arm (left) Symptom Intensity: 5/10 Timing: constant Associated Symptoms: No LOC, No chest pain, No SOB, No abdominal pain Note: The patient denies any visual changes. Review of Systems See HPI for pertinent positives & negatives. A total of 10 systems reviewed and were otherwise negative. Past Medical & Surgical Medical Problems: (1) Benign hypertension (2) Elbow fracture, left (3) HTN (hypertension) (4) Osteoarthritis (5) Osteoporosis (6) Seizure disorder Surgical Problems: (1) Status post hip replacement (2) Status post lumbar laminectomy (3) Status post tonsillectomy Family History Hypertension Social History Smoking Status: Never Smoker Alcohol Use: none Drug Use: none Marital Status: Housing Status: lives alone Occupation Status: retired Current/Historical Medications Scheduled Calcium Carbonate-Vitamin D (Calcium 600 + D), 1 TAB PO BID Carbamazepine (Carbatrol Er), 200 MG PO BID Ergocalciferol (Drisdol), 1 CAP PO MONTHLY Fentanyl (Fentanyl), 12 MCG TOP Q3D Losartan Potassium (Cozaar), 1 TAB PO DAILY Multiple Vitamins W/ Minerals (Preservision Areds), 2 CAP PO DAILY Potassium Chloride (K-Tabs), 10 MEQ PO DAILY Tolterodine Tartrate (Tolterodine Tartrate), 2 MG PO BID Zonisamide (Zonegran), 100 MG PO BID Scheduled PRN Hydrocodone/Acetaminophen ([place] 10/325 Tab), 1 TAB PO Q4H PRN for Pain Allergies Coded Allergies: MURIEL Inhibitors (Verified Allergy, Intermediate, COUGH, 09/27/16) Adhesives (Verified Allergy, Intermediate, SEVERE BLISTERS, 09/27/16) Latex1 -Allergic Contact Dermititis (Verified Allergy, Mild, RASH, BLISTERS, 09/27/16) Alendronate (Verified Allergy, Unknown, Unknown., 09/27/16) PT list. Penicillins (Verified Allergy, Unknown, RASH, 09/27/16) Ranitidine (Verified Allergy, Unknown, Unknown., 09/27/16) PT list. Tetracycline (Verified Allergy, Unknown, UNKNOWN, 09/27/16) Topiramate (Verified Allergy, Unknown, UNKNOWN, 09/27/16) Valproic Acid and Related (Verified Adverse Reaction, Intermediate, DIPLOPIA;SEVERE WT LOSS, 09/27/16) Beta Adrenergic Blockers (Verified Adverse Reaction, Mild, FATIGUE, 09/27/16 ) Codeine (Verified Adverse Reaction, Mild, NAUSEA, 09/27/16) Nifedipine (Verified Adverse Reaction, Mild, ABD BLOATING, 09/27/16) Physical Exam Vital Signs Date Time Temp Pulse Resp B/P (MAP) Pulse Ox O2 Delivery O2 Flow Rate FiO2 09/27/16 12:37 65 20 138/74 98 Room Air 09/27/16 11:30 64 18 146/75 99 Room Air 09/27/16 09:32 36.9 67 16 155/109 100 Room Air Physical Exam GENERAL: alert, well appearing, well nourished, no distress, non-toxic EYE EXAM: normal conjunctiva, PERRL and EOM's grossly intact OROPHARYNX: no exudate, no erythema, lips, buccal mucosa, and tongue normal and mucous membranes are moist NECK: supple, no nuchal rigidity, no adenopathy, non-tender LUNGS: Clear to auscultation. Normal chest wall mechanics HEART: no murmurs, S1 normal and S2 normal ABDOMEN: abdomen soft, non-tender, normo-active bowel sounds, no masses, no rebound or guarding. BACK: Back is symmetrical on inspection and there is no deformity, no midline tenderness, no CVA tenderness. SKIN: no rashes and no bruising UPPER EXTREMITIES: LUE in a brace/x-fix device. Normal pulses. Normal capillary refill. Sensation intact. Pain at the left shoulder with no obvious deformity. Decreased ROM secondary to pain. Remainder of extremities are atraumatic. LOWER EXTREMITIES: No pitting edema. NEURO EXAM: Normal sensorium, cranial nerves II-XII grossly intact, normal speech, no gross weakness of arms, no gross weakness of legs. Medical Decision & Procedures ER Provider Diagnostic Interpretation: Radiology results have been interpreted by the radiologist and reviewed by me. LEFT SHOULDER 3 VIEWS FINDINGS: 3 views of the left shoulder are obtained. Correlation is made with left-sided rib series performed concurrently on 09/27/2016. The skeletal structures are osteopenic. There is no radiographic evidence of left shoulder fracture or dislocation. The acromioclavicular joint is maintained. Mild to moderate arthritic change is seen at the glenohumeral articulation. The overlying soft tissues are within normal limits. There are several subacute and healing left-sided rib fractures. There is atherosclerotic calcification of the thoracic aorta. The imaged left lung parenchyma appears clear. IMPRESSION: Osteopenia and arthritic change as above. No fracture or dislocation is seen in the left shoulder. Electronically signed by: Travis Khalil M.D. AP CHEST WITH LEFT-SIDED RIB SERIES FINDINGS: An AP supine chest radiograph with 3 additional views from a left-sided rib series is compared to study dated 08/30/2016. The AP view is degraded by patient rotation. The heart is top normal for projection and there is atherosclerotic calcification of the thoracic aorta. Chronic interstitial thickening is unchanged. No airspace consolidation, pleural effusion, or pneumothorax is seen. The skeletal structures are osteopenic. There are numerous healed left-sided rib fractures. There are subacute and nondistracted left anterolateral 7th through 10th rib fractures seen on the rib series. These were also identified on 08/30/2016. No new fracture is identified. Degenerative change and moderate scoliosis is noted in the thoracic spine. Fusion hardware is partially imaged in the lumbar spine. Postoperative change is also seen in the left elbow. IMPRESSION: 1. The lungs are clear and there is no pneumothorax. 2.No acute left-sided rib fracture is identified on the rib series. There are subacute left anterolateral 7th through 10th rib fractures. These were also seen on 08/30/2016. Electronically signed by: Travis Khalil M.D. SINGLE VIEW PELVIS FINDINGS: An AP pelvic radiograph is compared to study dated 02/05/2011. Correlation is made with pelvic CT dated 04/21/2011. The skeletal structures are osteopenic. No fracture is identified in the hips or bony pelvis. A right hip arthroplasty is in near-anatomic alignment. No periprosthetic lucency is seen. Moderate to advanced arthritic change is noted in the left hip. Lumbosacral spondylosis is partially imaged. Sclerotic change is noted in the sacroiliac joints. The overlying soft tissues are within normal limits. There is a nonobstructed abdominal bowel gas pattern. Pelvic calcifications are similar to 2010. IMPRESSION: 1. No acute fracture is identified involving the hips or bony pelvis. 2. Osteopenia, arthritic change, and right hip arthroplasty as above. Electronically signed by: Travis Khalil M.D. LEFT FOREARM 2 VIEWS FINDINGS: AP and lateral views of the left forearm are obtained. No prior studies are available for comparison at the time of dictation. The examination is degraded by overlying brace/traction device. The skeletal structures are osteopenic. There is no clear radiographic evidence of left forearm fracture. Postoperative change/pinning is noted in the proximal ulna. Arthritic changes are noted in the wrist and elbow joints. Mild soft tissue swelling is present. IMPRESSION: 1. Soft tissues swelling with no clear evidence of acute left forearm fracture. 2. Osteopenia and postoperative change as above. Electronically signed by: Travis Khalil M.D. LEFT ELBOW 3 VIEWS FINDINGS: 3 views of left elbow are compared to study dated 08/31/2016. The examination is degraded by an overlying brace/traction device, especially the lateral view. There are postoperative changes seen from pinning of the olecranon process of the ulna. No acute fracture is clearly identified. The joint spaces appear maintained. Degenerative spurring is noted along the medial and lateral aspect of the joint space. Joint effusion cannot be assessed on the lateral view. Soft tissue swelling is present around the elbow. IMPRESSION: 1. Soft tissue swelling with no clear evidence of acute fracture. 2. Osteopenia, degenerative change, and postoperative change as above. Electronically signed by: Travis Khalil M.D. Medications Administered Medications (Trade) Dose Ordered Sig/Guillermo Route Start Time Stop Time Status Last Admin Dose Admin Oxycodone HCl (Roxicodone Immediate Rel Tab) 5 mg NOW STAT PO 09/27/16 10:07 09/27/16 10:08 DC 09/27/16 10:16 5 MG Losartan Potassium (coZAAR TAB) 50 mg QAM PO 09/28/16 09:00 09/28/16 09:00 DC 09/27/16 10:36 50 MG ED Course 09: The patient was evaluated in room B7. A complete history and physical exam was performed. 1007: Ordered Cozaar Tab 50 mg PO, Roxicodone Immediate Rel Tab 5 mg PO. 1155: I updated the patient. She will return to rehab. 1205: Upon reevaluation, the patient is feeling better. I discussed the findings and the treatment plan with the patient. She verbalizes agreement and understanding. The patient was discharged home. Medical Decision Differential diagnosis: Etiologies such as fracture, dislocation, neurovascular compromise, compartment syndrome, soft tissue injury, as well as others were entertained. No evidence of new or acute injury including fracture to left upper extremity which had previously been injured. Doubt any additional culture medic intrathoracic/intra-abdominal injury. Patient denies head injury or LOC. Patient well-appearing here with stable vital signs, pain controlled with her dose of her chronic pain medication that was missed this morning. Discussed with patient close follow-up for recheck by her family doctor as well as orthopedics given the recent injuries, discussed symptoms to watch and return for, she verbalized understanding was agreeable with plan. Impression Primary Impression: Fall Additional Impression: Left arm pain Scribe Attestation The scribe's documentation has been prepared under my direction and personally reviewed by me in its entirety. I confirm that the note above accurately reflects all work, treatment, procedures, and medical decision making performed by me. Departure Information Dispostion Home / Self-Care Referrals Ervin Barton M.D. (PCP) Patient Instructions My [facility] Additional Instructions Please continue rehabilitation as previously prescribed. Please continue regular medications. If you develop any worsening pain, increased swelling, numbness or tingling, you've any other new concerns, please return the emergency room. Please continue wearing the brace is previous liters by orthopedics. Please do not walk without assistance, and always use your walker. Problem Qualifiers Primary Impression: Fall Encounter type: initial encounter Qualified Codes: W19.XXXA - Unspecified fall, initial encounter
[2016-09-27 12:37] VITALS: BP 138/74; PULSE 65; O2SAT 98
[2016-09-28] MEDS ORDERED: LOSARTAN POTASSIUM 50 MG TAB PO SCH (09:00)
== END 2016-09-27 12:38 | disposition home or self-care (01) ==
LOC: EDBD 09:26 → C.EDB 09:29
DX: M79.602 Pain in left arm (principal); I10 Essential (primary) hypertension; M81.0 Age-related osteoporosis without current pathological fracture; G40.909 Epilepsy, unspecified, not intractable, without status epilepticus; Z79.899 Other long term (current) drug therapy; Z87.828 Personal history of other (healed) physical injury and trauma; Z82.49 Family history of ischemic heart disease and other diseases of the circulatory system; W01.0XXA Fall on same level from slipping, tripping and stumbling without subsequent striking against object, initial encounter; Y92.122 Bedroom in nursing home as the place of occurrence of the external cause

== ENCOUNTER → 2016-10-27 | Outpatient (CLI) | payer OTHER ==
[2016-10-27 13:28] LABS: BLOOD UREA NITROGEN 22 mg/dl (7-18); BUN/CREATININE RATIO 29.1 (10-20); CALCIUM 9.4 mg/dl (8.5-10.1); CARBON DIOXIDE 29 mmol/L (21-32); CHLORIDE 96 mmol/L (98-107); CREATININE 0.75 mg/dl (0.60-1.20); GLUCOSE 90 mg/dl (70-99); POTASSIUM 4.2 mmol/L (3.5-5.1); SODIUM 130 mmol/L (136-145)
== END | disposition home or self-care (01) ==
LOC: C.LABOAKS 10:31
PROVIDERS: ATTEND Internal Medicine
DX: M81.0 Age-related osteoporosis without current pathological fracture (principal)

== ENCOUNTER → 2016-11-13 | Outpatient (CLI) | payer OTHER | END | disposition home or self-care (01) | LOC: C.LABSPEC 17:48 | PROVIDERS: ATTEND Family Medicine | DX: R19.7 Diarrhea, unspecified (principal) ==

== ENCOUNTER → 2017-05-28 | Day surgery (SDC) | payer OTHER ==
[2017-05-03 11:49] VITALS: Ht 152.4 cm; Wt 37.4 kg
--- NOTE | 2017-05-03 12:21 | PAT Medication Instructions ---
Service Date May 03, 2017. Current Home Medication List Calcium Carbonate-Vitamin D (Calcium 600 + D), 1 TAB PO BID Carbamazepine (Carbatrol Er), 200 MG PO BID Ergocalciferol (Drisdol), 1 CAP PO EVERY OTHER MONTH Fentanyl (Fentanyl), 12 MCG TOP EVERY 72 HOUR Lorazepam (Ativan), 0.5 MG PO Q6H PRN for SEIZURE Losartan Potassium (Cozaar), 1 TAB PO QAM Multiple Vitamins W/ Minerals (Preservision Areds), 2 CAP PO DAILY Potassium Chloride (K-Tabs), 10 MEQ PO QAM Tolterodine Tartrate (Tolterodine Tartrate), 2 MG PO BID Zonisamide (Zonegran), 100 MG PO BID Medication Instructions For Your Scheduled Surgery -Continue as directed: Ergocalciferol (Drisdol), 1 CAP PO EVERY OTHER MONTH - Hold the following medications the morning of surgery: Multiple Vitamins W/ Minerals (Preservision Areds), 2 CAP PO DAILY Potassium Chloride (K-Tabs), 10 MEQ PO QAM Losartan Potassium (Cozaar), 1 TAB PO QAM Fentanyl (Fentanyl), 12 MCG TOP EVERY 72 HOUR Calcium Carbonate-Vitamin D (Calcium 600 + D), 1 TAB PO BID - Take the following medications the morning of surgery with a sip of water: Zonisamide (Zonegran), 100 MG PO BID Tolterodine Tartrate (Tolterodine Tartrate), 2 MG PO BID Lorazepam (Ativan), 0.5 MG PO Q6H PRN for SEIZURE Carbamazepine (Carbatrol Er), 200 MG PO BID - Take the following medications as scheduled the night before surgery: Zonisamide (Zonegran), 100 MG PO BID Tolterodine Tartrate (Tolterodine Tartrate), 2 MG PO BID Lorazepam (Ativan), 0.5 MG PO Q6H PRN for SEIZURE Calcium Carbonate-Vitamin D (Calcium 600 + D), 1 TAB PO BID Carbamazepine (Carbatrol Er), 200 MG PO BID If you have any questions please call us at [phone] or [phone] or [phone]
[2017-05-03 13:03] LABS: BASO % 0.5 %; BASO ABS # 0.03 K/uL (0-0.2); EOS % 0.5 %; EOS ABS # 0.03 K/uL (0-0.5); HEMATOCRIT 39.5 % (37-47); HEMOGLOBIN 13.1 g/dL (12.0-16.0); IG# 0.01 K/uL (0.00-0.02); LYMPH % 21.6 %; LYMPH ABS # 1.29 K/uL (1.2-3.4); MEAN CELL VOLUME 97.5 fL (80-100); MEAN CORPUSCULAR HEMOGLOBIN 32.3 pg (25-34); MEAN CORPUSCULAR HGB CONC 33.2 g/dl (32-36); MEAN PLATELET VOLUME 9.1 fL (7.4-10.4); MONO % 8.7 %; MONO ABS # 0.52 K/uL (0.11-0.59); NEUT % 68.5 %; PLATELET COUNT 218 K/uL (130-400); RED CELL DISTRIBUTION WIDTH CV 12.9 % (11.5-14.5); WHITE BLOOD COUNT 5.98 K/uL (4.8-10.8)
[2017-05-03 14:33] LABS: CALCIUM 9.8 mg/dl (8.5-10.1); CREATININE 0.77 mg/dl (0.60-1.20)
--- NOTE | 2017-05-27 13:54 | History and Physical ---
History & Physical Date May 27, 2017. Chief Complaint left elbow pain History of Present Illness The patient is a 86 year old female with complaints of left elbow pain with painful hardware. She had an ORIF of her olecranon in August of 2016. She progressed well throughout the post operative period but is able to feel the hardware and is having pain. She is being set up for surgical removal of the hardware. Past Medical/Surgical History Medical Problems: (1) Benign hypertension (2) Elbow fracture, left (3) HTN (hypertension) (4) Osteoarthritis (5) Osteoporosis (6) Seizure disorder Surgical Problems: (1) Status post hip replacement (2) Status post lumbar laminectomy (3) Status post tonsillectomy Allergies Coded Allergies: Penicillins (Verified Allergy, Severe, THROAT SWELLS, 05/27/17) Adhesives (Verified Allergy, Intermediate, SEVERE BLISTERS, 05/03/17) Latex1 -Allergic Contact Dermititis (Verified Allergy, Mild, RASH, BLISTERS, 05/03/17) Ranitidine (Verified Allergy, Mild, RASH, 05/03/17) Triamcinolone (Verified Allergy, Mild, GENERALIZED RASH, 05/03/17) Tetracycline (Verified Allergy, Unknown, UNKNOWN, 05/03/17) Topiramate (Verified Allergy, Unknown, UNKNOWN, 05/03/17) MURIEL Inhibitors (Verified Adverse Reaction, Intermediate, COUGH, 05/27/17) Valproic Acid and Related (Verified Adverse Reaction, Intermediate, DIPLOPIA;SEVERE WT LOSS, 05/03/17) Alendronate (Verified Adverse Reaction, Mild, N/V, 05/27/17) Beta Adrenergic Blockers (Verified Adverse Reaction, Mild, FATIGUE, 05/03/17 ) Codeine (Verified Adverse Reaction, Mild, NAUSEA, 05/03/17) Nifedipine (Verified Adverse Reaction, Mild, ABD BLOATING, 05/03/17) Home Medications Scheduled Calcium Carbonate-Vitamin D (Calcium 600 + D), 1 TAB PO BID Carbamazepine (Carbatrol Er), 200 MG PO BID Ergocalciferol (Drisdol), 1 CAP PO EVERY OTHER MONTH Fentanyl (Fentanyl), 12 MCG TOP EVERY 72 HOUR Losartan Potassium (Cozaar), 1 TAB PO QAM Multiple Vitamins W/ Minerals (Preservision Areds), 2 CAP PO DAILY Potassium Chloride (K-Tabs), 10 MEQ PO QAM Tolterodine Tartrate (Tolterodine Tartrate), 2 MG PO BID Zonisamide (Zonegran), 100 MG PO BID Scheduled PRN Lorazepam (Ativan), 0.5 MG PO Q6H PRN for SEIZURE Physical Examination Skin: warm/dry, no rash, + pertinent finding (Well healed left elbow incision) Eyes: normal inspection ENT: normal ENT inspection Head: normocephalic, atraumatic Neck: supple, no adenopathy, trachea midline Respiratory/Chest: lungs clear, normal breath sounds, no respiratory distress Cardiovascular: regular rate, rhythm Abdomen / GI: normal bowel sounds, non tender Extremities: + pertinent finding (left elbow: tender over the olecranon and palpable hardware. Good ROM of the left elbow. ) Neurologic/Psych: no motor/sensory deficits, alert, oriented x 3 Diagnosis Left elbow painful hardware s/p ORIF left olecranon fx. Plan of Treatment Recommend a left elbow removal hardware from olecranon. All potential risks, benefits, complications, alternatives, and rehab have been discussed and she wishes to proceed. She will be scheduled for 05.28.17.
[~2017-05-28] VITALS: Ht 152.4 cm; Wt 37.4 kg
[~2017-05-28] MED LIST changes: +ATROPINE SULFATE 0.1 MG/ML 5ML SYR IV PRN; +BACITRACIN 50000 UNIT VIAL ONE; +BUPIVACAINE 0.25% 30 ML VIAL ONE; +BUPIVACAINE/EPINEPHRINE 0.5% MPF 1:200,000 10 ML VIAL ONE; +CLINDAMYCIN 600 MG/54 ML D5W IV SCH; +DEXAMETHASONE SOD INJ 4 MG/ML VIAL ONE; +EpHEDrine SULFATE INJ 50 MG/ML AMP IV PRN; +EpINEphrine INJ 1MG/ML AMP 1 MG/ML AMP ONE; +FENTANYL CITRATE INJ 50 MCG/1 ML 2 ML VIAL IV PRN; +FENTANYL CITRATE INJ 50 MCG/1 ML 2 ML VIAL ONE; -HYDR-4383 PO; +HYDR-5688 PO; +LACTATED RINGER'S 1000ML 1,000 ML IV SCH; +LIDOCAINE HCL 2% 2 ML VIAL (20MG/ML) ONE; +LORA-741 PO; +ONDANSETRON INJ 2 MG/ML 2 ML VIAL IV PRN; +OXYCODONE/ACETAMINOPHEN 5-325 TAB PO PRN; +PROPOFOL IV EMULSION 10 MG/ML 20 ML VIAL IV ONE
[2017-05-28 06:56] VITALS: BP 162/83; PULSE 75; TEMP 36.9; O2SAT 98
--- NOTE | 2017-05-28 08:23 | [facility] Post Operative Brief Note ---
Immediate Operative Summary Operative Date May 28, 2017. Pre-Operative Diagnosis Left olecranon painful retained deep hardware. Left elbow contracture. Post-Operative Diagnosis Left olecranon painful retained deep hardware. Left elbow contracture. Procedure(s) Performed 1. Left elbow removal deep painful retained hardware. 2. FRANCESCA Left elbow contracture. Surgeon B Mimi CRUZ [employer] Hand Surgeon(s) Radha Galan PA-C Estimated Blood Loss 1cc Findings Consistent with Post-Op Diagnosis Specimens Explanted hardware left elbow Drains None Anesthesia Type MAC Regional Complication(s) none Disposition Accompanied Pt To Recover: no Disposition: Recovery Room / PACU
--- NOTE | 2017-05-28 08:39 | Discharge Instructions ---
Discharge Instructions Date of Service May 28, 2017. Admission Reason for Admission: Left Elbow Presence Of Functional Joint -Unspecifi Discharge Discharge Diagnosis / Problem: left elbow painful hardware Discharge Goals Goal(s): Decrease discomfort, Improve function Activity Recommendations Activity Limitations: per Instructions/Follow-up section . Instructions / Follow-Up Instructions / Follow-Up ACTIVITY RECOMMENDATIONS: * Avoid lifting anything heavier than a medium water glass until your first post operative visit. SPECIAL CARE INSTRUCTIONS: * Your bandage should be left in place until 5 days after your surgery. * Some drainage onto the dressing may occur. This is normal. * If the bandage feels excessively tight, you may loosen the elastic bandage. Then call the physician's office for further instructions. * If possible, keep your hand elevated above the level of your heart for the first 2 post operative days. You may use a sling if necessary. * You should move your fingers regularly (50-100 motions per hour) unless otherwise instructed. SPECIAL PRECAUTIONS: * If you notice increased drainage, fever over 101 degrees F. or severe, unremitting pain, call your physician/office at . * You may have been prescribed pain medication. If you experience nausea and/or skin rash, discontinue this medication and contact our office for an alternative medication. FOLLOW UP VISIT: If appointment is not already scheduled: Please call [facility] [place] to make a follow-up appointment for 2 weeks after your surgery at . Current Hospital Diet Patient's current hospital diet: Discharge Diet Recommended Diet: Regular Diet Procedures Procedures Performed: 1. Left elbow removal deep painful retained hardware. 2. FRANCESCA Left elbow contracture. Pending Studies Studies pending at discharge: no Medical Emergencies . Who to Call and When: Medical Emergencies: If at any time you feel your situation is an emergency, please call [phone] immediately. . Non-Emergent Contact Non-Emergency issues call your: Primary Care Provider Call Non-Emergent contact if: temperature is above 101, your pain is not controlled, your pain is worsening, wound has increased drainage, wound has increased redness, wound has increased pain . "Provider Documentation" section prepared by Alex Galan. . VTE Core Measure Inpt VTE Proph given/why not?: SCD's
--- NOTE | 2017-05-28 09:19 | Anesthesiology Progress Note ---
Anesthesia Post Op Note Date & Time May 28, 2017 at 09:19 Vital Signs Pain Intensity: 0 Vital Signs Past 12 Hours Date Time Temp Pulse Resp B/P (MAP) Pulse Ox O2 Delivery O2 Flow Rate FiO2 05/28/17 09:05 59 15 119/61 95 Room Air 05/28/17 08:55 72 14 127/85 96 Oxymask 10 05/28/17 08:45 73 25 119/59 96 Oxymask 10 05/28/17 08:39 36.4 60 16 87/43 98 Oxymask 10 05/28/17 06:56 36.9 75 18 162/83 (109) 98 Room Air Notes Mental Status: alert / awake / arousable, participated in evaluation Pt Amnestic to Procedure: Yes Nausea / Vomiting: adequately controlled Pain: adequately controlled Airway Patency, RR, SpO2: stable & adequate BP & HR: stable & adequate Hydration State: stable & adequate Anesthetic Complications: no major complications apparent Block working well in pacu
[2017-05-28 09:30] VITALS: BP 133/63; PULSE 57; TEMP 36.6; O2SAT 97
--- NOTE | 2017-05-28 09:38 | DIAGNOSTIC IMAGING REPORT ---
FLUOROSCOPIC IMAGES OF THE LEFT ELBOW CLINICAL HISTORY: LT HARDWARE REMOVAL COMPARISON STUDY: Left elbow radiographs September 27, 2016. Fluoroscopy time: 1.7 seconds. FINDINGS: This single lateral fluoroscopic image demonstrates interval removal of the hardware within the olecranon. Fracture appears healed. There are no unexpected radiopaque foreign bodies. IMPRESSION: Fluoroscopic image demonstrating removal of hardware. Electronically signed by: Sushant Farrell M.D. 05/28/2017 9:37 AM Dictated Date/Time: 05/28/2017 9:34 AM
[2017-05-28 10:00] VITALS: BP 162/94; PULSE 60; TEMP 36.4; O2SAT 98
--- NOTE | 2017-05-28 10:10 | OPERATIVE REPORT ---
DATE OF OPERATION: 05/28/2017 PREOPERATIVE DIAGNOSES: 1. Left elbow painful retained deep hardware. 2. Left elbow contracture. POSTOPERATIVE DIAGNOSES: 1. Left elbow painful retained deep hardware. 2. Left elbow contracture. PROCEDURES: 1. Left elbow removal deep painful retained hardware x3 incisions. 2. Manipulation under anesthesia, left elbow. SURGEON: Dr. Le. INSPECTOR GLASS OR MIRROR: Alex Galan PA-C who was present for patient positioning, sterile prep and drape, management of retractors and instruments. He was present through the critical portions of the case including wound closure, application of sterile dressing and transport of the patient to recovery. ANESTHESIA: Monitored anesthesia care with regional block, left upper extremity. SPECIMEN: Explanted hardware, left elbow. DRAINS: None. COMPLICATIONS: None. BLOOD LOSS: 1 mL. PERTINENT HISTORY: This is an 86-year-old female who sustained a prior fall and fracture of her left elbow olecranon. She underwent open reduction internal fixation had an uneventful recovery course had some stiffness and moderate contracture of the left elbow and subsequently had pain with related to the hardware becoming more prominent as her edema and swelling had reduced. The patient was scheduled for surgery as indicated. All potential risks, benefits, complications, alternatives, rehab, potential for incomplete relief of symptoms, need for further surgery, DVT, PE, , persistent pain, swelling, scarring, weakness, neurovascular injury, wound complications, bone fracture were discussed with the patient. The patient decided to proceed with the procedure as indicated. DESCRIPTION OF PROCEDURE: After regional block was performed in the holding area by the anesthesiologist, the patient was then taken to the operative suite, placed supine on the operating room table. I reviewed consent and identification of proper operative site, the patient was sedated and left upper extremity had a tourniquet applied high on the arm over cast padding. The patient was then sedated, consent was reviewed and proper operative site was identified. The left upper extremity was then sterilely prepped and draped in usual fashion, elevated and tourniquet inflated to 250 mmHg. A 15 blade scalpel was used to make an incision in the midline of the olecranon at the site of prior incision. There was a second incision was made over the medial K wire palpable to the tissue and then a third incision was made over the lateral K wire palpable under the tissue. Next, careful dissection was performed to the subcutaneous fat and tissue down to the level of the hardware at all 3 sites. The hardware was clearly visualized. The K wires were first pulled with a heavy needle milk driver and removed without difficulty. Next, the tension band 18 gauge surgical steel wire was then cut in 2 separate locations with a plant wire chief and then removed without difficulty. Next, the wound was copiously irrigated with sterile normal saline. Skin was closed with 3-0 Vicryl in the dermis and then 4-0 nylon sutures in the skin. Final radiographs were obtained confirming removal of all hardware in the left elbow and then a manipulation under anesthesia was performed with full flexion to approximately 140 degrees of flexion and full extension to 0 degrees. Therefore, arc range of motion was approximately 0-140 degrees. Supination 85 degrees and pronation 85 degrees. Palpable release of adhesions was appreciated with full flexion and full extension of the left elbow, improving range of motion. Next, a sterile compressive dressing was applied overwrapped with Ron wrap, the patient was awakened, the tourniquet was released and then she was taken to recovery in stable condition. I attest to the content of the Intraoperative Record and any orders documented therein. Any exception s are noted below.
[2017-05-28 10:30] VITALS: BP 150/94; PULSE 65; TEMP 36.4; O2SAT 99
== END | disposition home or self-care (01) ==
LOC: C.ACU 06:09
PROVIDERS: ATTEND Orthopaedic Surgery Sports Medicine
DX: T84.84XA Pain due to internal orthopedic prosthetic devices, implants and grafts, initial encounter (principal); Y83.1 Surgical operation with implant of artificial internal device as the cause of abnormal reaction of the patient, or of later complication, without mention of misadventure at the time of the procedure; M24.522 Contracture, left elbow; I10 Essential (primary) hypertension; G40.909 Epilepsy, unspecified, not intractable, without status epilepticus; Z88.6 Allergy status to analgesic agent; M19.90 Unspecified osteoarthritis, unspecified site; Z88.1 Allergy status to other antibiotic agents; Z88.0 Allergy status to penicillin; Z91.040 Latex allergy status; Z98.41 Cataract extraction status, right eye; Z98.42 Cataract extraction status, left eye; Z90.89 Acquired absence of other organs; Z79.899 Other long term (current) drug therapy; Z98.890 Other specified postprocedural states

== ENCOUNTER 2018-09-19 09:50 | Inpatient (IN) ==
--- OUTSIDE RECORDS SUMMARY | 2018-09-19 09:53 | External Medical Summary | Continuity of Care Document ---
:1930 Author Name Viktoriya Freed, Provider Address Unavailable Unavailable , Care Team Providers Name Role Phone Swapnil REINA M.D., E. PNatasha Unavailable 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 PNatasha Start: 14-Aug-2018 Quantity: 180 Refills: 3 Losartan Potassium 50 MG Oral Tablet; TAKE 1 TABLET DA ORIANA DIRECTED. Swapnil REINA M.D. E. PNatasha Start: 17-Nov-2010 Refills: 0 30 Tablet Bottle Klor-Con 10 10 MEQ Oral Tablet Extended Release; TAKE 1 TABLET DAILY. Swapnil REINA M.D. E. PNatasha Quantity: 90 Refills: 3 Tolterodine Tartrate 2 MG Oral Tablet; Take 1 tablet twice d aily Quantity: 180 Refills: 3 Vitamin D CAPS; TAKE 1 CAPSULE Daily Refills: 0 carBAMazepine 200 MG Oral Tablet; TAKE 1 TABLET TWICE DAILY. Swapnil REINA M.D. E. PNatasha Start: 27-Jun-2018 Quantity: 180 Refills: 3 Vitamin D (Ergocalciferol) 73055 UNIT Or al Capsule; TAKE 1 CAPSULE EVERY OTHER MONTH Abdiaziz Kraft III. PNatasha Quantity: 12 Refills: 3 Calcium 600+D 600-400 MG-UNIT Oral Tablet; TAKE 2 TABL ET Twice daily Swapnil REINA M.D. E. PNatasha Start: 13-Feb-2013 Refills: 0 Oxybutynin Chloride ER 5 MG Oral Tablet Extended Release 24 Hour; Take 1 tablet twice daily Refills: 0 Senna S 8.6-50 MG Oral Tablet; TAKE 1 TABLET DAILY NEEDED . Refills: 0 fentaNYL 12 MCG/HR Transdermal Patch 72 Hour; APPLY 1 PATCH EVERY 3 DAYS Refills: 0 Tolterodine Tartrate 1 MG Oral Tablet; Take 1 tablet twice d aily Refills: 0 HYDROcodone-Acetaminophen 10-325 MG Oral Tablet; TAKE 1 TABLET Twice daily PRN Swapnil REINA M.D. E. PNatasha Start: 20-Oct-2010 Quantity: 60 Refills: 0 PreserVision/Lutein Oral Capsule; TAKE 2 CAPSULE Daily Refills: 0 LORazepam 0.5 MG Oral Tablet; TAKE 1 TABLET Twice daily PRN Swapnil REINA M.D. E. PNatasha Quantity: 60 Refills: 5 Procedures Procedures not documented Immunizations Influenza On: Nov-2014 Pneumococcal polysaccharide vaccine, 23 valent On: 16-Feb-20 15 Social History - Smoking Status Never smoker Plan of Treatment Planned Encounters Appointment; Pelon Kraft III, M.D. Start: 06-Feb-2019 9:[address] Planned Observations Planned Goals not documented Results No Known Results Results not documented Encounters Appointment; Pelon Kraft III, M.D. 18-Jul-2018 11:00 Encounter Diagnosis: Problem not documented Appointment; Pelon Kraft III, M.D. 29-Dec-2017 10:45 Encounter Diagnosis: Problem not documented Appointment; Pelon Kraft III, M.D. 23-Jun-2017 10:45 Encounter Diagnosis: Problem not documented Appointment; Pelon Kraft III, M.D. 21-Dec-2016 10:30 Encounter Diagnosis: Problem not documented Appointment; Pelon Kraft III, M.D. 06-Feb-2019 9:45 Encounter Diagnosis: Problem not documented
[2018-09-19] MEDS ORDERED: SODIUM CHLORIDE 0.9% 500 ML IV SCH (10:00)
[2018-09-19] MEDS ORDERED: levETIRAcetam 750 MG in DEXTROSE 5% 100 ML IV STA (10:04)
--- NOTE | 2018-09-19 10:23 | CT Scan Report ---
CT head/brain wo con CLINICAL HISTORY: 87 years-old Female presenting with seizure, nonverbal vs post-ictal. TECHNIQUE: Multidetector CT imaging of the head was performed without the use of intravenous contrast . IV contrast: None. One or more dose lowering techniques were used consistent with the principles of ALARA (as low as reasonably achievable), including automatic exposure control, mA or kV adjustment t o individual patient size, and/or use of iterative reconstruction. COMPARISON: 02/26/2018. CT DOSE (mGy.cm): The estimated cumulative dose is 614.27 mGy.cm. FINDINGS: Cement Mixer topogram: Unremarkable. Proportional ventricular and sulcal prominence, likely age-related parenchymal volume loss. No hemorr timothy. Periventricular and subcortical white matter hypoattenuation, nonspecific but likely indicative of chronic small vessel ischemic change. No acute territorial infarct. No mass effect or midline kirby ft. No extra-axial fluid collection. Paranasal sinuses and mastoid air cells clear. Calvarium intact. Prominent dural calcification or ossification along the tentorium. IMPRESSION: 1. Chronic small vessel ischemic change. No acute intracranial abnormality. Electronically signed by: Kapil Stanley M.D. 09/19/2018 10:11 AM
[2018-09-19 10:29] LABS: Basophils # (auto) 0.05 K/uL (0-0.2); Basophils % (auto) 0.6 %; Eosinophils # (auto) 0.08 K/uL (0-0.5); Hematocrit (blood only) 40.2 % (37-47); Hemoglobin 13.6 g/dL (12.0-16.0); Immature Granulocytes # (auto) 0.03 K/uL (0.00-0.02); Immature Granulocytes % (auto) 0.4 %; Lymphocytes # (auto) 1.35 K/uL (1.2-3.4); Lymphocytes % (auto) 16.9 %; Mean Corpuscular Hgb Conc 33.8 g/dL (32-36); Mean Corpuscular Volume 97.6 fL (80-100); Mean Platelet Volume 9.4 fL (7.4-10.4); Monocytes # (auto) 0.47 K/uL (0.11-0.59); Monocytes % (auto) 5.9 %; Neutrophils % (auto) 75.2 %; Platelet Count 199 K/uL (130-400); RDW Coefficient of Variation 13.1 % (11.5-14.5); RDW Standard Deviation 46.6 fL (36.4-46.3); Red Blood Count 4.12 M/uL (4.2-5.4); White Blood Count 7.98 K/uL (4.8-10.8)
[2018-09-19 10:44] LABS: Alanine Aminotransferase 26 U/L (12-78); Aspartate Aminotransferase 23 U/L (15-37); BUN Creatinine Ratio 39.6 (10-20); Blood Urea Nitrogen 32 mg/dl (7-18); Calcium 9.1 mg/dl (8.5-10.1); Carbon Dioxide 21 mmol/L (21-32); Chloride 108 mmol/L (98-107); Est GFR (African American) 74.6; Est GFR (Non-African American) 64.3; Glucose 120 mg/dl (70-99); Magnesium 2.1 mg/dl (1.8-2.4); Potassium 3.6 mmol/L (3.5-5.1); Sodium 140 mmol/L (136-145)
[2018-09-19 10:49] LABS: Albumin Globulin Ratio 1.2 (0.9-2); Alkaline Phosphatase 52 U/L (45-117); Bilirubin,Total 0.6 mg/dl (0.2-1); Globulin 3.3 gm/dl (2.5-4.0); Phosphorus 2.8 mg/dl (2.5-4.9); Total Protein 7.3 gm/dl (6.4-8.2); Troponin I < 0.015 ng/ml (0-0.045)
[2018-09-19] MEDS ORDERED: HYDROCODONE/ACETAMOPHEN 5/325MG TAB PO STA (13:33)
--- NOTE | 2018-09-19 14:18 | History & Physical Report ---
Date of Service September 19, 2018 Assessment & Plan (1) Seizure disorder: 87 yo F with Hx of epilepsy presents to ED via EMS today after witnessed Grand Mal seizure this morning lasting approximately 20-30 seconds. Last night anxious and not feeling well, took lorazepam and went to bed. Woke up this morning, caregiver present and reports pt was not speaking much or acting herself. While awaiting EMS caregiver witnessed seizure activity. Starting to verbalize some now but still disoriented and unable to answer questions appropriately. Outpatient follows with [facility] Dr. Kraft, last seen 07/18/18, stable at that time, last prior seizure > 5 yrs ago. Lives alone and has caregiver coming 3x a week, does not have any close family that she speaks to. In ED: given keppra 750 mg Carbamazepine level low at 1.4 (05/02/18 was 9.8), no leukocytosis, labs otherwise not impressive CT Head: no acute intracranial abnormalities ; EKG stable ; BP: 167/75-133/83 ; Pulse: 74-87 ; SpO2: 96-99% RA Admit to telemetry Continue home meds Spoke with Dr. Kraft [facility] Neuro-- advised continue home meds and formal consult if status changes Will monitor until back to baseline function Consult PT/OT Consult discharge planning as need to ensure she is taking meds at home on regular basis Monitor carbamazepine levels outpatient to ensure therapeutic (2) HTN (hypertension): Stable. Continue home meds (3) Osteoarthritis: Chronic, stable on fentanyl patches Continue home meds VTE Prophylaxis: Heparin 5000 q12 Code Status: DNR/DNI PCP: Dr. Barton Pt seen in coordination with Dr. Pollock. See addendum for further details. History of Present Illness Chief Complaint: Seizure Primary Care Provider: Ervin Barton MD 87 yo F with PMHx of Epilepsy, HTN, chronic lower back pain, osteoporosis, and urge incontinence that presents to the ED today via EMS for witnessed Grand Mal seizure this morning. Pt is unable to answer any questions at this point but her caregiver, Fallon tinoco, is present in the room and is able to provide history. Prior to this morning, Ms. Deshpande was last with the patient 4 days ago and pt was behaving and feeling her normal self. Last night the pt was reportedly to go to a green party with friends and when they came to pick her up she was acting anxious and not herself so they called over the pt's neighbor who gave the pt one dose of lorazepam and put her to bed. Her caregiver, Ms. Deshpande, arrived at pt's home this morning around 0830 to find the patient still in bed complaining that she was "chilly" and would not answer any more questions. The caregiver called into PCP office who advised her to take her to the ED so she called 911 for an ambulance. As she was awaiting the ambulance she witnessed the patient having a Grand Mal seizure, "she was very rigid, shaking, and moaning which lasted about 20-30 seconds then she relaxed and opened her eyes but she was snoring like she was sleeping and would not respond to me then the ambulance came". Pt only took "one pill of her seizure meds" this morning, otherwise did not take morning meds. Caregiver reports that pt does her own medications and lives alone-- caregiver comes three days a week for half days and she makes sure she takes her meds while she is there but otherwise pt does things on her own. At baseline pt is able to take care of herself, ambulate with a walker, and hold a normal conversation. In the ED pt was given Keppra [address] Head showed no acute abnormalities. Her carbamazepine level was low at 1.4 (was 9.8 on 05/02/18). She follows outpatient with [facility] Neuro-- last saw Dr. Kraft 07/18/18 and things were stable at that time-- last seizure > 5 yrs ago. Pt is a DNR/DNI per Advance Directive found in [facility] from 2014-- with document stated HCP: Wyatt Amaya ([phone], ). Caregiver also notes pt expressed wishes to be DNR. Allergies Allergy/AdvReac Type Severity Reaction Status Date / Time Penicillins Allergy Severe THROAT Verified 09/19/18 10:23 SWELLS adhesive Allergy Intermediate SEVERE Verified 09/19/18 10:23 BLISTERS latex Allergy Mild RASH, Verified 09/19/18 10:23 BLISTERS ranitidine Allergy Mild RASH Verified 09/19/18 10:23 triamcinolone Allergy Mild GENERALIZED Verified 09/19/18 10:23 RASH tetracycline Allergy Unknown UNKNOWN Verified 09/19/18 10:23 topiramate Allergy Unknown UNKNOWN Verified 09/19/18 10:23 MURIEL Inhibitors AdvReac Intermediate COUGH Verified 09/19/18 10:23 valproic acid AdvReac Intermediate DIPLOPIA;SEVERE Verified 09/19/18 10:23 WT LOSS alendronate sodium AdvReac Mild N/V Verified 09/19/18 10:23 Beta-Blockers AdvReac Mild FATIGUE Verified 09/19/18 10:23 (Beta-Adrenergic Bloc codeine AdvReac Mild NAUSEA Verified 09/19/18 10:23 nifedipine AdvReac Mild ABD Verified 09/19/18 10:23 BLOATING Home Medications Home Medications Medication Instructions Recorded Confirmed Type carbamazepine 200 mg PO BID 02/26/18 09/19/18 History fentanyl 1 dose TOPICAL MOTH 02/26/18 09/19/18 History oxybutynin chloride 5 mg PO BID 02/26/18 09/19/18 History potassium chloride [Klor-Con 10] 10 meq PO QAM 02/26/18 09/19/18 History zonisamide 100 mg PO BID 02/26/18 09/19/18 History calcium carbonate-vitamin D3 1 tab PO BID 09/19/18 09/19/18 History [Oyster Shell Calcium-Vit D3] ergocalciferol (vitamin D2) 50,000 unit PO UD 09/19/18 09/19/18 History losartan 50 mg PO QAM 09/19/18 09/19/18 History multivitamin,ed-gsur-trsliitl 1 tab PO QAM 09/19/18 09/19/18 History [Therems-M] vit C,E-Ia-gacpo-lutein-zeaxan 1 tab PO QAM 09/19/18 09/19/18 History [PreserVision AREDS-2] Past Med/Surg History Medical History Seizure disorder (Chronic) Elbow fracture, left (Resolved) Osteoporosis (Chronic) Osteoarthritis (Chronic) HTN (hypertension) (Chronic) Chronic back pain Hypertension Osteoarthritis Osteoporosis Seizure disorder Surgical History Status post tonsillectomy (Chronic) Status post lumbar laminectomy (Chronic) Status post hip replacement (Chronic) History of elbow surgery History of hip replacement History of lumbar laminectomy History of tonsillectomy Social History Preferred Language: Croatian Communication Ability: Effective Communication Ability Comment: follows some commands Financial Reserve Clerk Required: No Beliefs That Will Affect Care: None marital status: Current Living Situation: Alone and Other Current Living Situation Comment: caretakers current occupational status: retired Other Information That Helps Us Care for You: No Feels Safe at Home: Yes Safety Concerns: Feels Safe At This Time Smoking Status: Never smoker Do You Dip or Chew Tobacco: No Second Hand Exposure: No Tobacco Cessation Education Requested by Patient: No Hx Alcohol Use: No Hx Substance Use: No Review of Systems Review of Systems: All systems reviewed & are unremarkable except as noted in HPI & below Physical Exam Physical Exam: GENERAL: alert, healthy, no distress, well nourished and well developed HEAD: Normocephalic, atraumatic EYES: PERRL, EOMI, Conjunctiva are pink and non-injected, sclera clear EARS: External ears normal OROPHARYNX: no exudate, no erythema, lips, buccal mucosa, and tongue normal and mucous membranes are moist NECK: supple, no adenopathy HEART: regular rate & rhythm, no murmurs and no gallops, no edema LUNGS: clear to auscultation bilaterally, no wheezing, rales or rhonchi ABDOMEN: abdomen soft, non-tender, normal bowel sounds, no masses or organomegaly, no rebound or guarding, no CVA tenderness, no bladder distention identified and no bruits SKIN: skin color, texture, turgor are normal, no rashes or significant lesions NEURO: alert, not oriented, unable to answer questions appropriately, no gross focal motor deficits Results & Data Vital Signs (Past 12 Hours) Vital Signs Temp Pulse Pulse Resp BP BP Pulse Ox 09/19/18 13:40 87 20 142/68 H 09/19/18 13:20 82 14 09/19/18 13:10 83 18 09/19/18 13:01 79 15 119/71 09/19/18 13:00 79 16 09/19/18 12:50 82 14 09/19/18 12:40 80 20 09/19/18 12:35 82 14 133/83 96 09/19/18 12:31 84 16 133/83 09/19/18 12:30 87 14 09/19/18 12:20 74 18 09/19/18 12:10 78 19 09/19/18 12:01 77 16 167/75 H 09/19/18 12:00 82 20 09/19/18 11:50 82 14 09/19/18 11:40 82 18 09/19/18 11:31 75 16 149/71 H 09/19/18 11:30 76 18 99 09/19/18 11:25 78 16 148/65 H 95 09/19/18 11:20 86 15 99 09/19/18 11:10 87 17 98 09/19/18 11:01 85 16 148/65 H 96 09/19/18 11:00 80 17 98 09/19/18 10:50 85 18 97 09/19/18 10:48 86 20 145/80 H 95 09/19/18 10:40 88 21 95 09/19/18 10:31 84 34 H 145/80 H 96 09/19/18 10:30 83 22 96 09/19/18 10:20 82 19 96 09/19/18 10:12 82 15 09/19/18 09:55 82 22 141/90 H 96 09/19/18 09:50 36.5 C 86 12 141/90 H 96 Laboratory Results Short CBC 09/19/18 09/19/18 09/19/18 Range/Units 09:55 10:21 10:21 WBC 7.98 (4.8-10.8) K/uL RBC 4.12 L (4.2-5.4) M/uL Hgb 13.6 (12.0-16.0) g/dL Hct 40.2 (37-47) % MCV 97.6 (80-100) fL MCH 33.0 (25-34) pg MCHC 33.8 (32-36) g/dL RDW Std Deviation 46.6 H (36.4-46.3) fL RDW Coeff of Octavio 13.1 (11.5-14.5) % Plt Count 199 (130-400) K/uL MPV 9.4 (7.4-10.4) fL Immature Gran % (Auto) 0.4 % Neut % (Auto) 75.2 % Lymph % (Auto) 16.9 % Kittson % (Auto) 5.9 % Eos % (Auto) 1.0 % Baso % (Auto) 0.6 % Immature Gran # (Auto) 0.03 H (0.00-0.02) K/uL Neut # (Auto) 6.00 (1.4-6.5) K/uL Lymph # (Auto) 1.35 (1.2-3.4) K/uL Kittson # (Auto) 0.47 (0.11-0.59) K/uL Eos # (Auto) 0.08 (0-0.5) K/uL Baso # (Auto) 0.05 (0-0.2) K/uL Sodium 140 (136-145) mmol/L Potassium 3.6 (3.5-5.1) mmol/L Chloride 108 H (98-107) mmol/L Carbon Dioxide 21 (21-32) mmol/L Anion Gap 12.0 H (3-11) BUN 32 H (7-18) mg/dl Creatinine 0.82 (0.6-1.2) mg/dl Est Cr Clr Drug Dosing Not Reportable Est GFR ( Amer) 74.6 Est GFR (Non-Af Amer) 64.3 BUN/Creatinine Ratio 39.6 H (10-20) Glucose 120 H (70-99) mg/dl POC Glucose 114 H (70-99) Calcium 9.1 (8.5-10.1) mg/dl Phosphorus 2.8 (2.5-4.9) mg/dl Magnesium 2.1 (1.8-2.4) mg/dl Total Bilirubin 0.6 (0.2-1) mg/dl AST 23 (15-37) U/L ALT 26 (12-78) U/L Alkaline Phosphatase 52 (45-117) U/L Troponin I < 0.015 (0-0.045) ng/ml Total Protein 7.3 (6.4-8.2) gm/dl Albumin 4.0 (3.4-5.0) gm/dl Globulin 3.3 (2.5-4.0) gm/dl Albumin/Globulin Ratio 1.2 (0.9-2) Carbamazepine (4-12) mcg/ml 09/19/18 Range/Units 10:21 WBC (4.8-10.8) K/uL RBC (4.2-5.4) M/uL Hgb (12.0-16.0) g/dL Hct (37-47) % MCV (80-100) fL MCH (25-34) pg MCHC (32-36) g/dL RDW Std Deviation (36.4-46.3) fL RDW Coeff of Octavio (11.5-14.5) % Plt Count (130-400) K/uL MPV (7.4-10.4) fL Immature Gran % (Auto) % Neut % (Auto) % Lymph % (Auto) % Kittson % (Auto) % Eos % (Auto) % Baso % (Auto) % Immature Gran # (Auto) (0.00-0.02) K/uL Neut # (Auto) (1.4-6.5) K/uL Lymph # (Auto) (1.2-3.4) K/uL Kittson # (Auto) (0.11-0.59) K/uL Eos # (Auto) (0-0.5) K/uL Baso # (Auto) (0-0.2) K/uL Sodium (136-145) mmol/L Potassium (3.5-5.1) mmol/L Chloride (98-107) mmol/L Carbon Dioxide (21-32) mmol/L Anion Gap (3-11) BUN (7-18) mg/dl Creatinine (0.6-1.2) mg/dl Est Cr Clr Drug Dosing Est GFR ( Amer) Est GFR (Non-Af Amer) BUN/Creatinine Ratio (10-20) Glucose (70-99) mg/dl POC Glucose (70-99) Calcium (8.5-10.1) mg/dl Phosphorus (2.5-4.9) mg/dl Magnesium (1.8-2.4) mg/dl Total Bilirubin (0.2-1) mg/dl AST (15-37) U/L ALT (12-78) U/L Alkaline Phosphatase (45-117) U/L Troponin I (0-0.045) ng/ml Total Protein (6.4-8.2) gm/dl Albumin (3.4-5.0) gm/dl Globulin (2.5-4.0) gm/dl Albumin/Globulin Ratio (0.9-2) Carbamazepine 1.4 L (4-12) mcg/ml BMP 09/19/18 10:21 Sodium 140 Potassium 3.6 Chloride 108 H Carbon Dioxide 21 BUN 32 H Creatinine 0.82 Glucose 120 H Calcium 9.1 Cardiac Enzymes 09/19/18 Range/Units 10:21 Troponin I < 0.015 (0-0.045) ng/ml Liver Function 09/19/18 Range/Units 10:21 Total Bilirubin 0.6 (0.2-1) mg/dl AST 23 (15-37) U/L ALT 26 (12-78) U/L Alkaline Phosphatase 52 (45-117) U/L Albumin 4.0 (3.4-5.0) gm/dl Diagnostic Findings CT HEAD: no acute intracranial findings ECG Rate (beats per minute): 86 Rhythm: sinus rhythm Code Status & VTE Plan Code Status DNR/DNI Supervising Physician Co-Signing Physician Notes Pt was seen and examined. Agreed with Edmundo PADRON exam, assessment and plan. 87 yo F with PMHx of Epilepsy, HTN, chronic lower back pain, osteoporosis, and urge incontinence presents to the ED after witnessed Grand Mal seizure this morning. History obtained from the field attendant, Aas per field attendant, pt was not feeling well last night. She was acting very anxious last night and Ativan was given last night. Pt lives alone. Paint Stockman said this morning when she came to check on her, she was not answered any questions. She called her PCP and instructed to bring her to the ER. While waiting for EMS, field attendant said that she witnessed that patient had an episode of seizure where pt was rigid, shaking and moaning that lasted about 15 to 20 sec. Paint Stockman said that not sure if pt has been taking her seizure meds correctly on the day she is not around. She said that she takes care of her 4xweek. CT head done in the ER showed chronic small vessel ischemic change with no acute intracranial abnormality. Lab done in the ER showed low Tegretol level (1.4). Received Keppra 750mg. Case dissussed with [place] neurology that recommended to continue outpatient seizure med. Neurology consult if pt continues to have any more seizure. Ativan PRN for breakthrough seizure. Seizure precaution. PT/OT eval. Continue monitor closely. MD Maris
--- NOTE | 2018-09-19 14:39 | Emergency Department Note ---
Entered by Audrey Acharya acting as a scribe for History of Present Illness General Chief complaint: Seizure Source: EMS Mode of arrival: EMS Limitations: other (The HPI is limited secondary to likely postictal state. ) History of Present Illness Onset (ago): hour(s) (904) Location: head (seizure) Pain Consistency: + other (episode) Quality: + other (seizure) Associated symptoms: + seizure The HPI is limited secondary to likely postictal state. The patient is an 87 white female w/ PMHx seizure disorder on Tegretol and hypertension who presents to the ED via EMS w/ CC of an episode of a seizure beginning at 09. Per EMS, the patient took diazepam last night with no known seizure activity at this time. They state that at 09, it was reported that she had 30 seconds where her whole body tensed up. Per EMS, the patient talks at baseline but is currently nonverbal. Home Medications Home Medications Medication Instructions Recorded Confirmed Type carbamazepine 200 mg PO BID 02/26/18 09/19/18 History fentanyl 1 dose TOPICAL MOTH 02/26/18 09/19/18 History oxybutynin chloride 5 mg PO BID 02/26/18 09/19/18 History potassium chloride [Klor-Con 10] 10 meq PO QAM 02/26/18 09/19/18 History zonisamide 100 mg PO BID 02/26/18 09/19/18 History calcium carbonate-vitamin D3 1 tab PO BID 09/19/18 09/19/18 History [Oyster Shell Calcium-Vit D3] ergocalciferol (vitamin D2) 50,000 unit PO UD 09/19/18 09/19/18 History losartan 50 mg PO QAM 09/19/18 09/19/18 History multivitamin,qa-alud-mlzwhopp 1 tab PO QAM 09/19/18 09/19/18 History [Therems-M] vit C,P-Zt-coldc-lutein-zeaxan 1 tab PO QAM 09/19/18 09/19/18 History [PreserVision AREDS-2] Allergies Allergy/AdvReac Type Severity Reaction Status Date / Time Penicillins Allergy Severe THROAT Verified 09/19/18 10:23 SWELLS adhesive Allergy Intermediate SEVERE Verified 09/19/18 10:23 BLISTERS latex Allergy Mild RASH, Verified 09/19/18 10:23 BLISTERS ranitidine Allergy Mild RASH Verified 09/19/18 10:23 triamcinolone Allergy Mild GENERALIZED Verified 09/19/18 10:23 RASH tetracycline Allergy Unknown UNKNOWN Verified 09/19/18 10:23 topiramate Allergy Unknown UNKNOWN Verified 09/19/18 10:23 MURIEL Inhibitors AdvReac Intermediate COUGH Verified 09/19/18 10:23 valproic acid AdvReac Intermediate DIPLOPIA;SEVERE Verified 09/19/18 10:23 WT LOSS alendronate sodium AdvReac Mild N/V Verified 09/19/18 10:23 Beta-Blockers AdvReac Mild FATIGUE Verified 09/19/18 10:23 (Beta-Adrenergic Bloc codeine AdvReac Mild NAUSEA Verified 09/19/18 10:23 nifedipine AdvReac Mild ABD Verified 09/19/18 10:23 BLOATING Past Med/Surg History Medical History Seizure disorder (Chronic) Elbow fracture, left (Resolved) Osteoporosis (Chronic) Osteoarthritis (Chronic) HTN (hypertension) (Chronic) Chronic back pain Hypertension Osteoarthritis Osteoporosis Seizure disorder Surgical History Status post tonsillectomy (Chronic) Status post lumbar laminectomy (Chronic) Status post hip replacement (Chronic) History of elbow surgery History of hip replacement History of lumbar laminectomy History of tonsillectomy Social History Preferred Language: Urdu Communication Ability: Effective Communication Ability Comment: follows some commands 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 Other (The ROS is limited secondary to likely postictal state. ) Physical Exam Vital Signs Vital Signs - 24 hr 09/19/18 09:50 09/19/18 09:55 09/19/18 10:12 Temperature 36.5 C Temperature Source Oral Sepsis Recent Fever Within 48 Hours No Sepsis Action Taken by Nursing No Action Required Pulse Rate 86 82 82 Pulse Rate [Right Finger] Pulse Rate from SpO2 Sensor 78 Pulse Rhythm [Right Finger] Respiratory Rate 12 22 15 Respiratory Effort / Characteristics Non-Labored Respiratory Depth Normal Blood Pressure 141/90 H 141/90 H Blood Pressure [Right Arm] Blood Pressure Mean 107 107 Blood Pressure Mean [Right Arm] Pulse Oximetry 96 96 Oxygen Delivery Method Room Air 09/19/18 10:20 09/19/18 10:30 09/19/18 10:31 Temperature Temperature Source Sepsis Recent Fever Within 48 Hours Sepsis Action Taken by Nursing Pulse Rate 82 83 84 Pulse Rate [Right Finger] Pulse Rate from SpO2 Sensor 76 87 90 Pulse Rhythm [Right Finger] Respiratory Rate 19 22 34 H Respiratory Effort / Characteristics Respiratory Depth Blood Pressure 145/80 H Blood Pressure [Right Arm] Blood Pressure Mean 101 Blood Pressure Mean [Right Arm] Pulse Oximetry 96 96 96 Oxygen Delivery Method 09/19/18 10:40 09/19/18 10:48 09/19/18 10:50 Temperature Temperature Source Sepsis Recent Fever Within 48 Hours Sepsis Action Taken by Nursing Pulse Rate 88 85 Pulse Rate [Right Finger] 86 Pulse Rate from SpO2 Sensor 86 85 Pulse Rhythm [Right Finger] Regular Respiratory Rate 21 20 18 Respiratory Effort / Characteristics Non-Labored Respiratory Depth Normal Blood Pressure Blood Pressure [Right Arm] 145/80 H Blood Pressure Mean Blood Pressure Mean [Right Arm] 101 Pulse Oximetry 95 95 97 Oxygen Delivery Method Room Air 09/19/18 11:00 09/19/18 11:01 09/19/18 11:10 Temperature Temperature Source Sepsis Recent Fever Within 48 Hours Sepsis Action Taken by Nursing Pulse Rate 80 85 87 Pulse Rate [Right Finger] Pulse Rate from SpO2 Sensor 81 79 89 Pulse Rhythm [Right Finger] Respiratory Rate 17 16 17 Respiratory Effort / Characteristics Respiratory Depth Blood Pressure 148/65 H Blood Pressure [Right Arm] Blood Pressure Mean 92 Blood Pressure Mean [Right Arm] Pulse Oximetry 98 96 98 Oxygen Delivery Method 09/19/18 11:20 09/19/18 11:25 09/19/18 11:30 Temperature Temperature Source Sepsis Recent Fever Within 48 Hours Sepsis Action Taken by Nursing Pulse Rate 86 76 Pulse Rate [Right Finger] 78 Pulse Rate from SpO2 Sensor 87 75 Pulse Rhythm [Right Finger] Respiratory Rate 15 16 18 Respiratory Effort / Characteristics Respiratory Depth Blood Pressure Blood Pressure [Right Arm] 148/65 H Blood Pressure Mean Blood Pressure Mean [Right Arm] 92 Pulse Oximetry 99 95 99 Oxygen Delivery Method Room Air 09/19/18 11:31 09/19/18 11:40 09/19/18 11:50 Temperature Temperature Source Sepsis Recent Fever Within 48 Hours Sepsis Action Taken by Nursing Pulse Rate 75 82 82 Pulse Rate [Right Finger] Pulse Rate from SpO2 Sensor Pulse Rhythm [Right Finger] Respiratory Rate 16 18 14 Respiratory Effort / Characteristics Respiratory Depth Blood Pressure 149/71 H Blood Pressure [Right Arm] Blood Pressure Mean 97 Blood Pressure Mean [Right Arm] Pulse Oximetry Oxygen Delivery Method 09/19/18 12:00 09/19/18 12:01 09/19/18 12:10 Temperature Temperature Source Sepsis Recent Fever Within 48 Hours Sepsis Action Taken by Nursing Pulse Rate 82 77 78 Pulse Rate [Right Finger] Pulse Rate from SpO2 Sensor Pulse Rhythm [Right Finger] Respiratory Rate 20 16 19 Respiratory Effort / Characteristics Respiratory Depth Blood Pressure 167/75 H Blood Pressure [Right Arm] Blood Pressure Mean 105 Blood Pressure Mean [Right Arm] Pulse Oximetry Oxygen Delivery Method 09/19/18 12:20 09/19/18 12:30 09/19/18 12:31 Temperature Temperature Source Sepsis Recent Fever Within 48 Hours Sepsis Action Taken by Nursing Pulse Rate 74 87 84 Pulse Rate [Right Finger] Pulse Rate from SpO2 Sensor Pulse Rhythm [Right Finger] Respiratory Rate 18 14 16 Respiratory Effort / Characteristics Respiratory Depth Blood Pressure 133/83 Blood Pressure [Right Arm] Blood Pressure Mean 99 Blood Pressure Mean [Right Arm] Pulse Oximetry Oxygen Delivery Method 09/19/18 12:35 09/19/18 12:40 09/19/18 12:50 Temperature Temperature Source Sepsis Recent Fever Within 48 Hours Sepsis Action Taken by Nursing Pulse Rate 80 82 Pulse Rate [Right Finger] 82 Pulse Rate from SpO2 Sensor Pulse Rhythm [Right Finger] Respiratory Rate 14 20 14 Respiratory Effort / Characteristics Respiratory Depth Blood Pressure Blood Pressure [Right Arm] 133/83 Blood Pressure Mean Blood Pressure Mean [Right Arm] 99 Pulse Oximetry 96 Oxygen Delivery Method Room Air 09/19/18 13:00 09/19/18 13:01 09/19/18 13:10 Temperature Temperature Source Sepsis Recent Fever Within 48 Hours Sepsis Action Taken by Nursing Pulse Rate 79 79 83 Pulse Rate [Right Finger] Pulse Rate from SpO2 Sensor Pulse Rhythm [Right Finger] Respiratory Rate 16 15 18 Respiratory Effort / Characteristics Respiratory Depth Blood Pressure 119/71 Blood Pressure [Right Arm] Blood Pressure Mean 87 Blood Pressure Mean [Right Arm] Pulse Oximetry Oxygen Delivery Method 09/19/18 13:20 09/19/18 13:30 09/19/18 13:31 Temperature Temperature Source Sepsis Recent Fever Within 48 Hours Sepsis Action Taken by Nursing Pulse Rate 82 82 82 Pulse Rate [Right Finger] Pulse Rate from SpO2 Sensor Pulse Rhythm [Right Finger] Respiratory Rate 14 20 17 Respiratory Effort / Characteristics Respiratory Depth Blood Pressure 142/68 H Blood Pressure [Right Arm] Blood Pressure Mean 92 Blood Pressure Mean [Right Arm] Pulse Oximetry Oxygen Delivery Method Room Air Room Air 09/19/18 13:40 09/19/18 13:50 09/19/18 14:00 Temperature Temperature Source Sepsis Recent Fever Within 48 Hours Sepsis Action Taken by Nursing Pulse Rate 81 81 78 Pulse Rate [Right Finger] 87 Pulse Rate from SpO2 Sensor Pulse Rhythm [Right Finger] Respiratory Rate 24 14 16 Respiratory Effort / Characteristics Respiratory Depth Blood Pressure Blood Pressure [Right Arm] 142/68 H Blood Pressure Mean Blood Pressure Mean [Right Arm] 92 Pulse Oximetry 95 Oxygen Delivery Method Room Air Room Air Room Air 09/19/18 14:01 09/19/18 14:10 09/19/18 14:20 Temperature Temperature Source Sepsis Recent Fever Within 48 Hours Sepsis Action Taken by Nursing Pulse Rate 81 89 79 Pulse Rate [Right Finger] Pulse Rate from SpO2 Sensor Pulse Rhythm [Right Finger] Respiratory Rate 17 21 16 Respiratory Effort / Characteristics Respiratory Depth Blood Pressure 136/74 Blood Pressure [Right Arm] Blood Pressure Mean 94 Blood Pressure Mean [Right Arm] Pulse Oximetry Oxygen Delivery Method Room Air Room Air Room Air 09/19/18 14:30 09/19/18 14:31 09/19/18 14:34 Temperature Temperature Source Sepsis Recent Fever Within 48 Hours Sepsis Action Taken by Nursing Pulse Rate 75 75 Pulse Rate [Right Finger] Pulse Rate from SpO2 Sensor Pulse Rhythm [Right Finger] Respiratory Rate 21 14 14 Respiratory Effort / Characteristics Respiratory Depth Blood Pressure 111/73 111/73 Blood Pressure [Right Arm] Blood Pressure Mean 85 Blood Pressure Mean [Right Arm] Pulse Oximetry 96 Oxygen Delivery Method Room Air Room Air Room Air GENERAL: Wearing glasses, well appearing, well nourished, NAD, non-toxic. EYE EXAM: Normal conjunctiva. PERRL, no anisocoria and EOM's grossly intact w/o pain. OROPHARYNX: Moist mucus membranes. Grossly normal dentition. NECK: Supple, no nuchal rigidity, no adenopathy, non-tender. no signs of meningismus. LUNGS: Clear to auscultation. Normal chest wall mechanics. HEART: NSR, no MRG. ABDOMEN: Abdomen soft, non-tender, normo-active bowel sounds, no masses, no rebound or guarding. BACK: No CVA TTP. SKIN: No rashes and no bruising. UPPER EXTREMITIES: Upper extremities are grossly normal. LOWER EXTREMITIES: No pitting edema. No calf pain. NEURO EXAM: Awake, alert, moves all four extremities, intermittently follows commands, nonverbal but grunts from time to time. Course 0950: Past medical records reviewed. The patient was evaluated in room B12. A complete history and physical examination was performed. 0958: The patient was in the ED in February for a fall. 1002: The caregiver is now present. She said that the patient was similar last night. This morning she came over to see the patient and the patient said was that it is very chilly. The caregiver states that she seemed to be not quite at her baseline and then had the seizure. She did get her morning seizure medication. 1220: I reviewed the patient's case with Bruna Amato under Dr. Pollock. She will evaluate the patient for further management. Consultations Consultation #1: 1220: I reviewed the patient's case with Bruna Amato under Dr. Pollock. She will evaluate the patient for further management. Time: 12:20 Administered Medications Discontinued Medications Hydrocodone Bitart/Acetaminophen ([place] 5/325) 1 tab PO NOW STA Stop: 09/19/18 13:34 Last Admin: 09/19/18 13:39 Dose: 1 tab Documented by: [id number] Sodium Chloride (Nss) 500 mls @ 999 mls/hr IV .Q31M [id number] Stop: 09/19/18 10:30 Last Infusion: 09/19/18 12:15 Dose: 0 mls/hr Documented by: [id number] Admin: 09/19/18 11:26 Dose: 999 mls/hr Documented by: [id number] Levetiracetam 750 mg/ Dextrose 107.5 mls @ 440 mls/hr IV NOW STA Stop: 09/19/18 10:18 Last Infusion: 09/19/18 11:42 Dose: 0 mls/hr Documented by: [id number] Admin: 09/19/18 11:26 Dose: 440 mls/hr Documented by: [id number] Medical Decision Making Differential Diagnosis Differential diagnosis Infection, hypoglycemia, electrolyte abnormalities, cardiac sources, intracerebral event, trauma, toxicologic, neurologic, as well as other etiologies were entertained. Medical Records Attestation: I reviewed the patient's medical records. Home Medications Current Medication List: was personally reviewed by ca Laboratory Data Attestation: I reviewed the patient's lab results. Result diagrams: 09/19/18 10:21 09/19/18 10:21 Lab Results 09/19/18 09/19/18 09/19/18 Range/Units 09:55 10:21 10:21 WBC 7.98 (4.8-10.8) K/uL RBC 4.12 L (4.2-5.4) M/uL Hgb 13.6 (12.0-16.0) g/dL Hct 40.2 (37-47) % MCV 97.6 (80-100) fL MCH 33.0 (25-34) pg MCHC 33.8 (32-36) g/dL RDW Std Deviation 46.6 H (36.4-46.3) fL RDW Coeff of Octavio 13.1 (11.5-14.5) % Plt Count 199 (130-400) K/uL MPV 9.4 (7.4-10.4) fL Immature Gran % (Auto) 0.4 % Neut % (Auto) 75.2 % Lymph % (Auto) 16.9 % [place] % (Auto) 5.9 % Eos % (Auto) 1.0 % Baso % (Auto) 0.6 % Immature Gran # (Auto) 0.03 H (0.00-0.02) K/uL Neut # (Auto) 6.00 (1.4-6.5) K/uL Lymph # (Auto) 1.35 (1.2-3.4) K/uL [place] # (Auto) 0.47 (0.11-0.59) K/uL Eos # (Auto) 0.08 (0-0.5) K/uL Baso # (Auto) 0.05 (0-0.2) K/uL Sodium 140 (136-145) mmol/L Potassium 3.6 (3.5-5.1) mmol/L Chloride 108 H (98-107) mmol/L Carbon Dioxide 21 (21-32) mmol/L Anion Gap 12.0 H (3-11) BUN 32 H (7-18) mg/dl Creatinine 0.82 (0.6-1.2) mg/dl Est Cr Clr Drug Dosing Not Reportable Est GFR ( Amer) 74.6 Est GFR (Non-Af Amer) 64.3 BUN/Creatinine Ratio 39.6 H (10-20) Glucose 120 H (70-99) mg/dl POC Glucose 114 H (70-99) Calcium 9.1 (8.5-10.1) mg/dl Phosphorus 2.8 (2.5-4.9) mg/dl Magnesium 2.1 (1.8-2.4) mg/dl Total Bilirubin 0.6 (0.2-1) mg/dl AST 23 (15-37) U/L ALT 26 (12-78) U/L Alkaline Phosphatase 52 (45-117) U/L Troponin I < 0.015 (0-0.045) ng/ml Total Protein 7.3 (6.4-8.2) gm/dl Albumin 4.0 (3.4-5.0) gm/dl Globulin 3.3 (2.5-4.0) gm/dl Albumin/Globulin Ratio 1.2 (0.9-2) Carbamazepine (4-12) mcg/ml 09/19/18 Range/Units 10:21 WBC (4.8-10.8) K/uL RBC (4.2-5.4) M/uL Hgb (12.0-16.0) g/dL Hct (37-47) % MCV (80-100) fL MCH (25-34) pg MCHC (32-36) g/dL RDW Std Deviation (36.4-46.3) fL RDW Coeff of Octavio (11.5-14.5) % Plt Count (130-400) K/uL MPV (7.4-10.4) fL Immature Gran % (Auto) % Neut % (Auto) % Lymph % (Auto) % [place] % (Auto) % Eos % (Auto) % Baso % (Auto) % Immature Gran # (Auto) (0.00-0.02) K/uL Neut # (Auto) (1.4-6.5) K/uL Lymph # (Auto) (1.2-3.4) K/uL [place] # (Auto) (0.11-0.59) K/uL Eos # (Auto) (0-0.5) K/uL Baso # (Auto) (0-0.2) K/uL Sodium (136-145) mmol/L Potassium (3.5-5.1) mmol/L Chloride (98-107) mmol/L Carbon Dioxide (21-32) mmol/L Anion Gap (3-11) BUN (7-18) mg/dl Creatinine (0.6-1.2) mg/dl Est Cr Clr Drug Dosing Est GFR ( Amer) Est GFR (Non-Af Amer) BUN/Creatinine Ratio (10-20) Glucose (70-99) mg/dl POC Glucose (70-99) Calcium (8.5-10.1) mg/dl Phosphorus (2.5-4.9) mg/dl Magnesium (1.8-2.4) mg/dl Total Bilirubin (0.2-1) mg/dl AST (15-37) U/L ALT (12-78) U/L Alkaline Phosphatase (45-117) U/L Troponin I (0-0.045) ng/ml Total Protein (6.4-8.2) gm/dl Albumin (3.4-5.0) gm/dl Globulin (2.5-4.0) gm/dl Albumin/Globulin Ratio (0.9-2) Carbamazepine 1.4 L (4-12) mcg/ml Imaging Data Radiologist's Impression: Radiology results as stated below per my review and the radiologist's interpretation: CT head/brain wo con CLINICAL HISTORY: 87 years-old Female presenting with seizure, nonverbal vs post-ictal. TECHNIQUE: Multidetector CT imaging of the head was performed without the use of intravenous contrast. IV contrast: None. One or more dose lowering techniques were used consistent with the principles of ALARA (as low as reasonably achievable), including automatic exposure control, mA or kV adjustment to individual patient size, and/or use of iterative reconstruction. COMPARISON: 02/26/2018. CT DOSE (mGy.cm): The estimated cumulative dose is 614.27 mGy.cm. FINDINGS: Funding Coordinator topogram: Unremarkable. Proportional ventricular and sulcal prominence, likely age-related parenchymal volume loss. No hemorrhage. Periventricular and subcortical white matter hypoat tenuation, nonspecific but likely indicative of chronic small vessel ischemic change. No acute territorial infarct. No mass effect or midline shift. No extra- axial fluid collection. Paranasal sinuses and mastoid air cells clear. Calvarium intact. Prominent dural calcification or ossification along the tentorium. IMPRESSION: 1. Chronic small vessel ischemic change. No acute intracranial abnormality. Electronically signed by: Kapil Stanley M.D. 09/19/2018 10:11 AM Dictated: 09/19/18 1008 Transcribed: 09/19/18 1008 ECG Data Attestation: I personally reviewed and interpreted this ECG as follows: Indication: other (seizure) Rate (beats per minute): 86 Rhythm: sinus rhythm Findings: + other (normal intervals, normal axis) and + Q waves (in lead 3) Comparison ECG Date: from (05/03/2017) Change: no significant change (Q wave is old ) Blood Pressure Blood Pressure Findings: Elevated blood pressure Blood Pressure Disposition: further management by hospitalist YASMANI Narrative The HPI is limited secondary to likely postictal state. The patient is an 87 white female w/ PMHx seizure disorder on Tegretol and hypertension who presents to the ED via EMS w/ CC of an episode of a seizure beginning at 0905. Patient was seen and evaluated the bedside. The patient is a prior history of seizure disorder and is supposed to be on Tegretol. The patient does live at home but she does have a transition manager that does present several times daily. The initial history is fairly limited given the patient's acute change in mental status. The patient is awake and alert but only intermittently follows commands. The patient is not speaking but apparently is verbal at baseline. Patient did have a normal blood sugar. The patient is afebrile with normal vitals. Patient did a blood work completed which is fairly unremarkable. The patient does appear to be prerenal and does have some dry mucous membranes so IV fluids were given. The patient was also loaded with a 20 make per cake bolus of Keppra. Patient's Tegretol level was low. Given that the patient does live by herself and does not have her medications given to her every day the week it may be that the patient is not taking her medications. I did speak the on-call hosp italist and CT the brain is negative. The patient is becoming more verbal but is not back to baseline. Patient was admitted to the medicine service. Impression & Plan Post-ictal state, Seizure, Confusion Discharge Plan Visit Data Chief Complaint: Seizure ED Provider: [facility] Discharge Problem: Post-ictal state, Seizure, Confusion Patient Disposition: Being Evaluated by Hospitalist Discharge Instructions Interventions: ED Discharge Assessment Last Done: 09/19/18 14:34 The scribe's documentation has been prepared under my direction and personally reviewed by me in its entirety. I confirm that the note above accurately reflects all work, treatment, procedures, and medical decision making performed by me.
[2018-09-19] MEDS ORDERED: ACETAMINOPHEN 325 MG TAB PO PRN (14:42)
[2018-09-19] MEDS ORDERED: ONDANSETRON INJ 2 MG/ML 2 ML VIAL IV PRN (14:42)
[2018-09-19 15:41] LABS: INR 1.1 (0.9-1.1); Partial Thromboplastin Time 27.6 Seconds (21.0-31.0); Prothrombin Time 10.9 Seconds (9.0-12.0)
[2018-09-19] MEDS ORDERED: LORazepam 1 MG/2 ML VIAL IV PRN (16:17)
[2018-09-19] MEDS: CHECK FENTANYL PATCH PLACEMENT SCH ×2 (16:52→16:53)
[2018-09-19] MEDS: [UNRECOGNIZED DRUG - REMARK] SCH (16:53)
[2018-09-19] MEDS: CALCIUM 600MG + VIT D 400 IU TAB PO SCH (16:54)
[2018-09-19] MEDS: carBAMazepine 200 MG TABLET PO SCH (20:53)
[2018-09-19] MEDS: OXYBUTYNIN CHLORIDE XL 5 MG TABCR PO SCH (20:53)
[2018-09-19] MEDS: HEPARIN SOD 5,000 UNIT/0.5 ML VIAL SQ SCH (20:53)
[2018-09-20] MEDS: CHECK FENTANYL PATCH PLACEMENT SCH ×4 (00:30→23:25)
[2018-09-20] MEDS: [UNRECOGNIZED DRUG - REMARK] SCH ×4 (00:31→23:25)
[2018-09-20 06:11] LABS: Hematocrit (blood only) 34.4 % (37-47); Hemoglobin 11.8 g/dL (12.0-16.0); Mean Corpuscular Hgb Conc 34.3 g/dL (32-36); Mean Corpuscular Volume 94.2 fL (80-100); Mean Platelet Volume 9.3 fL (7.4-10.4); Platelet Count 170 K/uL (130-400); RDW Standard Deviation 45.3 fL (36.4-46.3); Red Blood Count 3.65 M/uL (4.2-5.4); White Blood Count 6.93 K/uL (4.8-10.8)
[2018-09-20 06:41] LABS: BUN Creatinine Ratio 40.5 (10-20); Calcium 8.3 mg/dl (8.5-10.1); Creatinine Clr Calc Pharmacy 39.3 ml/min; Est GFR (African American) 94.5; Est GFR (Non-African American) 81.5; Potassium 3.4 mmol/L (3.5-5.1)
[2018-09-20] MEDS: OXYBUTYNIN CHLORIDE XL 5 MG TABCR PO SCH ×2 (08:03→20:54)
[2018-09-20] MEDS: CALCIUM 600MG + VIT D 400 IU TAB PO SCH ×2 (08:04→20:55)
[2018-09-20] MEDS: carBAMazepine 200 MG TABLET PO SCH ×2 (08:04→20:55)
[2018-09-20] MEDS: POTASSIUM CHLORIDE 10 MEQ TABCR PO SCH (08:04)
[2018-09-20] MEDS: LOSARTAN POTASSIUM 50 MG TAB PO SCH (08:04)
[2018-09-20] MEDS: CEROVITE ADV FORMULA TAB PO SCH (08:04)
[2018-09-20] MEDS: HEPARIN SOD 5,000 UNIT/0.5 ML VIAL SQ SCH ×2 (08:05→20:55)
[2018-09-20] MEDS ORDERED: NON-FORMULARY MEDICATION (Vit C,E-Zn-Coppr-Lutein-Zeaxan [Preservision Areds-2] 1 TAB) PO SCH (09:00)
[2018-09-20] MEDS ORDERED: POTASSIUM CHLORIDE 10 MEQ TABCR PO ONE (09:30)
--- NOTE | 2018-09-20 11:11 | Hospitalist Progress Note ---
Date of Service September 20, 2018 Assessment & Plan (1) Seizure disorder: Meeting service notes 87 yo F with Hx of epilepsy presents to ED via EMS today after witnessed Grand Mal seizure this morning lasting approximately 20-30 seconds. In ED: given keppra 750 mg Carbamazepine level low at 1.4 (05/02/18 was 9.8), no leukocytosis, labs otherwise not impressive CT Head: no acute intracranial abnormalities ; EKG stable ; BP: 167/75-133/83 ; Pulse: 74-87 ; SpO2: 96-99% RA Spoke with Dr. Kraft [facility]-- advised continue home meds and formal consult if status changes Carbamazepine level today improved to 4 Recheck tomorrow Mental status much improved Continue PT OT evaluation Discussed case with Dr. Kraft, [facility], patient's neurologist (2) HTN (hypertension): Stable. Continue home meds (3) Osteoarthritis: Chronic, stable on fentanyl patches Continue home meds VTE Prophylaxis: Heparin 5000 q12 Code Status: DNR/DNI PCP: Dr. Barton Disposition pending Declines referrals to [place] [facility] or personal prison at this time Lives at home with caregiver coming 3 times a week Will need home health services Subjective Follow-up for breakthrough seizures Seen resting in bed, comfortable, awake and alert x3, answers all questions appropriately States she feels fine overall, was back to her baseline Denies headache, dizziness, confusion, focal weakness or numbness Ambulating the hallways today with no problems Does not recall recent events events except that she went outside for short while to get something, outside her house and was apparently noted by her caregiver that something was wrong Does not recall the ambulance was called, and she was brought to the hospital, she woke up and she was oriented to hospital she said Denies other symptoms States she is able to take her medications every day, consistently Denies feeling ill, fevers or chills, problems urinating, diarrhea, cough or shortness of breath, abdominal pain, nausea Review of Systems Review of Systems: All systems reviewed & are unremarkable except as noted in HPI & below Physical Exam Physical Exam: General- oriented x 3, not in distress, speaks in sentences with no effort or accessory muscle use Head- atraumatic Eyes- PERRL, EOMI, anicteric ENT- oropharynx clear Neck- supple, no JVD, no adenopathy, no thyromegaly; carotids +2/2, no bruits appreciated Lungs- clear to auscultation bilaterally, no rales/wheezes Heart- normal rate, regular rhythm; no murmur, no gallop, no rub appreciated Abdomen- normal bowel sounds, nondistended, soft, nontender, no masses or hepatosplenomegaly Back- (+) sever kyphosis Extremities- no pretibial edema, no calf tenderness; peripheral pulses intact Neuro- alert, oriented x 3; CN 2-12 grossly intact; motor 5/5 bilaterally;sensation 100% on all extremities; no other gross focal neurologic deficits Skin- warm & dry Results & Data Vital Signs (Past 12 Hours) Vital Signs Temp Pulse Pulse Resp BP Pulse Ox 09/20/18 11:03 36.9 C 68 17 107/61 96 09/20/18 08:53 54 L 09/20/18 08:01 37.0 C 78 22 127/73 92 09/20/18 04:09 36.8 C 60 18 142/72 H 97 09/20/18 01:38 70 09/19/18 23:33 37.2 C 69 18 156/79 H 98 Laboratory Results Laboratory Results - last 24 hr 09/19/18 09/20/18 09/20/18 15:13 05:58 05:58 WBC 6.93 RBC 3.65 L Hgb 11.8 L Hct 34.4 L MCV 94.2 MCH 32.3 MCHC 34.3 RDW Std Deviation 45.3 RDW Coeff of Octavio 13.0 Plt Count 170 MPV 9.3 PT 10.9 INR 1.1 APTT 27.6 PTT Ratio 1.0 Sodium 139 Potassium 3.4 L Chloride 109 H Carbon Dioxide 22 Anion Gap 8.0 BUN 25 H Creatinine 0.61 Est Cr Clr Drug Dosing 39.3 Est GFR ( Amer) 94.5 Est GFR (Non-Af Amer) 81.5 BUN/Creatinine Ratio 40.5 H Glucose 85 Calcium 8.3 L Carbamazepine 09/20/18 09/20/18 08:52 10:33 WBC RBC Hgb Hct MCV MCH MCHC RDW Std Deviation RDW Coeff of Octavio Plt Count MPV PT INR APTT PTT Ratio Sodium Potassium Chloride Carbon Dioxide Anion Gap BUN Creatinine Est Cr Clr Drug Dosing Est GFR ( Amer) Est GFR (Non-Af Amer) BUN/Creatinine Ratio Glucose Calcium Carbamazepine 4.1 Pending
[2018-09-21] MEDS: POTASSIUM CHLORIDE 10 MEQ TABCR PO SCH (09:02)
[2018-09-21] MEDS: LOSARTAN POTASSIUM 50 MG TAB PO SCH (09:02)
[2018-09-21] MEDS: OXYBUTYNIN CHLORIDE XL 5 MG TABCR PO SCH (09:02)
[2018-09-21] MEDS: carBAMazepine 200 MG TABLET PO SCH (09:02)
[2018-09-21] MEDS: CALCIUM 600MG + VIT D 400 IU TAB PO SCH (09:02)
[2018-09-21] MEDS: CEROVITE ADV FORMULA TAB PO SCH (09:02)
[2018-09-21] MEDS: CHECK FENTANYL PATCH PLACEMENT SCH ×2 (09:03→15:48)
[2018-09-21] MEDS: HEPARIN SOD 5,000 UNIT/0.5 ML VIAL SQ SCH (09:03)
[2018-09-21] MEDS: [UNRECOGNIZED DRUG - REMARK] SCH ×2 (09:30→15:48)
[2018-09-21 11:53] LABS: Albumin Level 3.9 gm/dl (3.4-5.0); BUN Creatinine Ratio 30.1 (10-20); Calcium 9.2 mg/dl (8.5-10.1); Creatinine Clr Calc Pharmacy 32.5 ml/min; Est GFR (African American) 84.4; Est GFR (Non-African American) 72.8; Magnesium 2.2 mg/dl (1.8-2.4); Potassium 4.1 mmol/L (3.5-5.1)
[2018-09-21 11:56] LABS: Albumin Globulin Ratio 1.3 (0.9-2); Bilirubin,Total 0.4 mg/dl (0.2-1); Total Protein 6.9 gm/dl (6.4-8.2)
[2018-09-21 12:11] LABS: Basophils # (auto) 0.04 K/uL (0-0.2); Basophils % (auto) 0.5 %; Eosinophils % (auto) 1.3 %; Hematocrit (blood only) 36.5 % (37-47); Hemoglobin 12.5 g/dL (12.0-16.0); Immature Granulocytes # (auto) 0.02 K/uL (0.00-0.02); Immature Granulocytes % (auto) 0.3 %; Lymphocytes # (auto) 1.52 K/uL (1.2-3.4); Lymphocytes % (auto) 20.1 %; Mean Corpuscular Volume 95.3 fL (80-100); Mean Platelet Volume 10.1 fL (7.4-10.4); Monocytes # (auto) 1.15 K/uL (0.11-0.59); Monocytes % (auto) 15.2 %; Neutrophils # (auto) 4.72 K/uL (1.4-6.5); Neutrophils % (auto) 62.6 %; Platelet Count 163 K/uL (130-400); RDW Coefficient of Variation 13.1 % (11.5-14.5); RDW Standard Deviation 45.6 fL (36.4-46.3); Red Blood Count 3.83 M/uL (4.2-5.4); White Blood Count 7.55 K/uL (4.8-10.8)
[2018-09-21 12:31] LABS: Mean Corpuscular Hgb Conc 34.2 g/dL (32-36)
--- NOTE | 2018-09-21 14:07 | Hospitalist Progress Note ---
Date of Service September 21, 2018 Assessment & Plan (1) Seizure disorder: 87 yo F with Hx of epilepsy presents to ED via EMS on 09/19/18 after witnessed Grand Mal seizure this morning lasting approximately 20-30 seconds. In ED: given keppra 750 mg Carbamazepine level low at 1.4 on 09/19/18, no leukocytosis, labs otherwise not impressive CT Head: no acute intracranial abnormalities ; EKG stable ; BP: 167/75-133/83 ; Pulse: 74-87 ; SpO2: 96-99% RA Hospitalist team discussed with Dr. Kraft from [facility] who advised continue home medications and place formal neurology consult if mental status changes Patient return to mental baseline after ED evaluation Serial Carbamazepine levels were done and levels were improved to 4.1 and 6.1 on 09/20/18 and 7.5 on 09/21/18 No witnessed seizure episodes while on hospital telemetry monitoring (2) HTN (hypertension): continue home dose Losartan (3) Osteoarthritis: Chronic osteoarthritis pain controlled Continue home meds VTE Prophylaxis: Heparin 5000 q12 while inpatient Code Status: DNR/DNI Subjective Patient seen and examined. No seizure witnessed in hospital to date. Patient recalls she was at at home. And then she remembered waking up in the hospital. Patient moving all extremities. No focal deficits in strength. able to do the finger to nose test. We discussed discharge plans and follow ups. no dizziness. no chest pain. no shortness of breath. no problems with eating Physical Exam Constitutional: + thin Eyes: PERRL, conjunctivae normal, anicteric sclerae EOM intact bilaterally ENMT: external ear and nose normal, oropharynx normal Neck: trachea midline, no thyromegaly normal visual inspection Respiratory: normal respiratory effort, lungs clear to auscultation Cardiovascular: Rate/Rhythm: regular rhythm and + bradycardic Gastrointestinal (Abdomen): normal bowel sounds, soft, nontender, no hepatosplenomegaly Musculoskeletal: no cyanosis or clubbing, extremities motor strength 5/5 Head/Neck/Chest: normocephalic and head atraumatic Neurologic: PERRL, EOMI, accommodation nl, no face palsy, no dysarthria CN's II-XI intact bilaterally Results & Data Vital Signs (Past 12 Hours) Vital Signs Temp Pulse Pulse Resp BP Pulse Ox 09/21/18 11:45 36.9 C 65 20 145/76 H 98 09/21/18 08:00 59 L 09/21/18 07:30 36.7 C 67 18 147/87 H 98 09/21/18 04:00 36.6 C 54 L 17 131/73 98
[2018-09-21 14:43] LABS: Appearance Urine Cloudy (Clear); Bilirubin Urine Negative (Negative); Blood Urine Negative (Negative); Color Urine Yellow; Epithelial Cell Urine Auto >30 /lpf (0-5); Glucose Urine UA Negative (Negative); Ketones Urine Negative (Negative); Leukocyte Esterase Urine Trace (Negative); Nitrite Urine Negative (Negative); Protein Urine Negative (Negative); Specific Gravity Urine 1.018 (1.000-1.030); Urobilinogen Urine Negative (Negative)
[2018-09-21 15:20] LABS: Bacteria Urine Automated 1+ (Negative)
[2018-09-21 15:21] LABS: RBC Urine Automated 0-4 /hpf (0-4)
--- NOTE | 2018-09-21 15:41 | Discharge Summary ---
Date of Service September 21, 2018 Admission HPI Per Admitting Provider 87 yo F with PMHx of Epilepsy, HTN, chronic lower back pain, osteoporosis, and urge incontinence that presents to the ED today via EMS for witnessed Grand Mal seizure this morning. Pt is unable to answer any questions at this point but her caregiver, Fallon Deshpande, is present in the room and is able to provide history. Prior to this morning, Ms. Deshpande was last with the patient 4 days ago and pt was behaving and feeling her normal self. Last night the pt was reportedly to go to a [place] with friends and when they came to pick her up she was acting anxious and not herself so they called over the pt's neighbor who gave the pt one dose of lorazepam and put her to bed. Her caregiver, Ms. Deshpande, arrived at pt's home this morning around 0830 to find the patient still in bed complaining that she was "chilly" and would not answer any more questions. The caregiver called into PCP office who advised her to take her to the ED so she called 911 for an ambulance. As she was awaiting the ambulance she witnessed the patient having a Grand Mal seizure, "she was very rigid, shaking, and moaning which lasted about 20-30 seconds then she relaxed and opened her eyes but she was snoring like she was sleeping and would not respond to me then the ambulance came". Pt only took "one pill of her seizure meds" this morning, otherwise did not take morning meds. Caregiver reports that pt does her own medications and lives alone-- caregiver comes three days a week for half days and she makes sure she takes her meds while she is there but otherwise pt does things on her own. At baseline pt is able to take care of herself, ambulate with a walker, and hold a normal conversation. In the ED pt was given Keppra [address] Head showed no acute abnormalities. Her carbamazepine level was low at 1.4 (was 9.8 on 05/02/18). She follows outpatient with [facility] Neuro-- last saw Dr. Kraft 07/18/18 and things were stable at that time-- last seizure > 5 yrs ago. Pt is a DNR/DNI per Advance Directive found in [facility] from 2014-- with document stated HCP: Wyatt Amaya ([phone], ). Caregiver also notes pt expressed wishes to be DNR. Admission Exam Per Admitting Provider Physical Exam: GENERAL: alert, healthy, no distress, well nourished and well developed HEAD: Normocephalic, atraumatic EYES: PERRL, EOMI, Conjunctiva are pink and non-injected, sclera clear EARS: External ears normal OROPHARYNX: no exudate, no erythema, lips, buccal mucosa, and tongue normal and mucous membranes are moist NECK: supple, no adenopathy HEART: regular rate & rhythm, no murmurs and no gallops, no edema LUNGS: clear to auscultation bilaterally, no wheezing, rales or rhonchi ABDOMEN: abdomen soft, non-tender, normal bowel sounds, no masses or organomegaly, no rebound or guarding, no CVA tenderness, no bladder distention identified and no bruits SKIN: skin color, texture, turgor are normal, no rashes or significant lesions NEURO: alert, not oriented, unable to answer questions appropriately, no gross focal motor deficits Principal Diagnosis Seizure disorder; hypertension Discharge Exam Constitutional + thin Eyes PERRL, conjunctivae normal, anicteric sclerae EOM intact bilaterally ENMT external ear and nose normal, oropharynx normal Neck trachea midline, no thyromegaly normal visual inspection Respiratory normal respiratory effort, lungs clear to auscultation Cardiovascular Rate/Rhythm: regular rhythm and + bradycardic Gastrointestinal (Abdomen) normal bowel sounds, soft, nontender, no hepatosplenomegaly Musculoskeletal no cyanosis or clubbing, extremities motor strength 5/5 Head/Neck/Chest: normocephalic and head atraumatic Neurologic PERRL, EOMI, accommodation nl, no face palsy, no dysarthria CN's II-XI intact bilaterally Discharge Data Allergies Allergy/AdvReac Type Severity Reaction Status Date / Time Penicillins Allergy Severe THROAT Verified 09/19/18 10:23 SWELLS adhesive Allergy Intermediate SEVERE Verified 09/19/18 10:23 BLISTERS latex Allergy Mild RASH, Verified 09/19/18 10:23 BLISTERS ranitidine Allergy Mild RASH Verified 09/19/18 10:23 triamcinolone Allergy Mild GENERALIZED Verified 09/19/18 10:23 RASH tetracycline Allergy Unknown UNKNOWN Verified 09/19/18 10:23 topiramate Allergy Unknown UNKNOWN Verified 09/19/18 10:23 MURIEL Inhibitors AdvReac Intermediate COUGH Verified 09/19/18 10:23 valproic acid AdvReac Intermediate DIPLOPIA;SEVERE Verified 09/19/18 10:23 WT LOSS alendronate sodium AdvReac Mild N/V Verified 09/19/18 10:23 Beta-Blockers AdvReac Mild FATIGUE Verified 09/19/18 10:23 (Beta-Adrenergic Bloc codeine AdvReac Mild NAUSEA Verified 09/19/18 10:23 nifedipine AdvReac Mild ABD Verified 09/19/18 10:23 BLOATING Consultations 09/19/18 12:20 ED Decision to Admit Stat 09/19/18 14:42 Consult Case Management - Discharge Planning Routine Ordered Studies 09/19/18 09:55 CT head/brain wo con Stat Hospital Course (1) Seizure disorder: 87 yo F with Hx of epilepsy presents to ED via EMS on 09/19/18 after witnessed Grand Mal seizure this morning lasting approximately 20-30 seconds. In ED: given keppra 750 mg Carbamazepine level low at 1.4 on 09/19/18, no leukocytosis, labs otherwise not impressive CT Head: no acute intracranial abnormalities ; EKG stable ; BP: 167/75-133/83 ; Pulse: 74-87 ; SpO2: 96-99% RA Hospitalist team discussed with Dr. Kraft from [facility] who advised continue home medications and place formal neurology consult if mental status changes Patient return to mental baseline after ED evaluation Serial Carbamazepine levels were done and levels were improved to 4.1 and 6.1 on 09/20/18 and 7.5 on 09/21/18 No witnessed seizure episodes while on hospital telemetry monitoring (2) HTN (hypertension): continue home dose Losartan (3) Osteoarthritis: Chronic osteoarthritis pain controlled Continue home meds VTE Prophylaxis: Heparin 5000 q12 while inpatient Code Status: DNR/DNI Total Time Total Time Spent Total Time Spent (In Minutes): 40 minutes Total Time Includes: Examination of the Patient, Discharge Planning, Medication Reconciliation and Communication With Other Providers Discharge Plan Discharge Items Patient Disposition: Home - Home Health Services Reason For Visit: SEIZURE Discharge Diagnosis: Seizure disorder, Hypertension Condition: Good Discharge Goals: Improve disease control Activity: Resume your previous activity Non-emergency contact: Primary Care Provider and Neurologist Call non-emergency contact if: you have any medication questions Follow-up/Referrals: Ervin Barton MD [Primary Care Provider] - Diet: Regular and Heart Healthy Diet Texture: Dental soft (bite-sized) Addtl Provider Instructions: 87 yo F with Hx of epilepsy presents to ED via EMS on 09/19/18 after witnessed Grand Mal seizure this morning lasting approximately 20-30 seconds. In ED: given keppra 750 mg Carbamazepine level low at 1.4 on 09/19/18, no leukocytosis, labs otherwise not impressive CT Head: no acute intracranial abnormalities ; EKG stable ; BP: 167/75-133/83 ; Pulse: 74-87 ; SpO2: 96-99% RA Hospitalist team discussed with Dr. Kraft from [facility] who advised continue home medications and place formal neurology consult if mental status changes Patient return to mental baseline after ED evaluation Serial Carbamazepine levels were done and levels were improved to 4.1 and 6.1 on 09/20/18 and 7.5 on 09/21/18 No witnessed seizure episodes while on hospital telemetry monitoring Discharge to Home with home health services follow up with neurologist Dr. Fernandez Kraft or his colleagues [address], [address] [place] [id number] 09/28/2018 11:00 AM Provider Ervin Barton MD Department [facility] Other appointments 10/17/2018 11:00 AM [facility] 10/31/2018 10:40 AM Provider Ervin Barton MD Department [facility] Prescriptions: Continued losartan 50 mg tablet 50 mg PO QAM RF: 0 ergocalciferol (vitamin D2) 50,000 unit capsule 50,000 unit PO UD RF: 0 Therems-M 27-0.4 mg Tablet 1 tab PO QAM RF: 0 calcium carbonate-vitamin D3 [Oyster Shell Calcium-Vit D3] 500 mg(1,250mg) - 200 unit Tablet 1 tab PO BID RF: 0 PreserVision AREDS-2 [phone]-mg Capsule 1 tab PO QAM RF: 0 potassium chloride [Klor-Con 10] 10 mEq tablet extended release 10 meq PO QAM RF: 0 zonisamide 100 mg capsule 100 mg PO BID RF: 0 carbamazepine 200 mg tablet 200 mg PO BID RF: 0 oxybutynin chloride 5 mg tablet extended release 24hr 5 mg PO BID RF: 0 fentanyl 12 mcg/hr patch 72 hour 1 dose Topical MOTH RF: 0 Stand-Alone Forms: [facility] Discharge Orders: Discharge Order (Routine); Ordered 09/21/18 Ordered By: Milton Camacho Admission Data Admit Date/Time: 09/20/18 11:47 Attending Provider: Milton Camacho Admit Provider: Ant Pollock Primary Care Provider: Ervin Barton Other Providers: Ant Pollock ; IRB Approved Study,Marco ; [place],Nursing Agency Service: Telemetry Other Interventions: Discharge Summary Assessment (RN) Last Done: 09/21/18 15:05
[2018-09-22] MEDS ORDERED: fentaNYL 12 MCG/HR TDSY TD SCH (09:00)
== END 2018-09-21 16:00 | disposition home health service (06) | DRG 101 ==
LOC: ED 09:50 → 2S 09:50 → SUATTDRO 09-20 11:47

== ENCOUNTER 2019-02-20 09:51 | Inpatient (IN) ==
[2019-02-20] MEDS ORDERED: LORazepam 2 MG/4 ML VIAL ONE ×2 (10:44→15:49)
[2019-02-20] MEDS ORDERED: LORazepam 1 MG/2 ML VIAL IV STA (10:48)
[2019-02-20] MEDS ORDERED: SODIUM CHLORIDE 0.9% 1000ML 1,000 ML IV SCH ×2 (11:00→17:04)
[2019-02-20 11:17] LABS: Albumin Level 4.2 gm/dl (3.4-5.0); BUN Creatinine Ratio 37.7 (10-20); Calcium 8.9 mg/dl (8.5-10.1); Creatinine Clr Calc Pharmacy 24.5 ml/min; Est GFR (African American) 82.5; Est GFR (Non-African American) 71.2; Potassium 3.8 mmol/L (3.5-5.1)
[2019-02-20 11:19] LABS: Albumin Globulin Ratio 1.4 (0.9-2); Bilirubin,Total 0.4 mg/dl (0.2-1); Total Protein 7.2 gm/dl (6.4-8.2)
[2019-02-20 11:23] LABS: Hematocrit (blood only) 37.5 % (37-47); Hemoglobin 12.7 g/dL (12.0-16.0); Mean Corpuscular Hemoglobin 32.3 pg (25-34); Mean Corpuscular Hgb Conc 33.9 g/dL (32-36); Mean Corpuscular Volume 95.4 fL (80-100); Mean Platelet Volume 10.2 fL (7.4-10.4); Platelet Count 159 K/uL (130-400); RDW Coefficient of Variation 13.2 % (11.5-14.5); RDW Standard Deviation 46.5 fL (36.4-46.3); Red Blood Count 3.93 M/uL (4.2-5.4)
[2019-02-20 11:24] LABS: Basophils # (auto) 0.02 K/uL (0-0.2); Basophils % (auto) 0.2 %; Immature Granulocytes # (auto) 0.03 K/uL (0.00-0.02); Immature Granulocytes % (auto) 0.3 %; Lymphocytes # (auto) 0.64 K/uL (1.2-3.4); Lymphocytes % (auto) 5.8 %; Monocytes # (auto) 0.96 K/uL (0.11-0.59); Monocytes % (auto) 8.6 %; Neutrophils # (auto) 9.45 K/uL (1.4-6.5); Neutrophils % (auto) 85.1 %
--- NOTE | 2019-02-20 11:28 | CT Scan Report ---
CT head/brain wo con CLINICAL HISTORY: 88 years-old Female presenting with seizure. TECHNIQUE: Multidetector CT imaging of the head was performed without the use of intravenous contrast . IV contrast: None. One or more dose lowering techniques were used consistent with the principles of ALARA (as low as reasonably achievable), including automatic exposure control, mA or kV adjustment t o individual patient size, and/or use of iterative reconstruction. COMPARISON: 09/19/2018. CT DOSE (mGy.cm): The estimated cumulative dose is 1363.67 mGy.cm. FINDINGS: Manager Rn topogram: Unremarkable. Proportional ventricular and sulcal prominence, likely age-related parenchymal volume loss. No hemorr timothy. Periventricular and subcortical white matter hypoattenuation, nonspecific but likely indicative of chronic small vessel ischemic change. No acute territorial infarct. No mass effect or midline kirby ft. No extra-axial fluid collection. Redemonstration of the calcified focus along the paramedian righ t tentorium, possibly dural ossification or calcification versus a heavily calcified meningioma. Para nasal sinuses and mastoid air cells clear. Calvarium intact. IMPRESSION: 1. Chronic small vessel ischemic change. No acute intracranial abnormality. Electronically signed by: Kapil Stanley M.D. 02/20/2019 11:27 AM
--- NOTE | 2019-02-20 11:36 | XRay Report ---
XR chest 1V portable CLINICAL HISTORY: Chest pain status post trauma COMPARISON STUDY: 11/17/2018 FINDINGS: The cardiac and mediastinal contours are normal. There is no evidence of focal pulmonary co nsolidation. There is no evidence of failure. No pleural effusions are visualized.[There are multiple old bilateral rib fractures. There is no pneumothorax. There is a scoliosis. Postsurgical changes ar e present within the lumbar spine. IMPRESSION: No active disease in the chest. Electronically signed by: Fitz Mora M.D. 02/20/2019 11:35 AM
--- NOTE | 2019-02-20 11:38 | XRay Report ---
XR hip RT min 2V CLINICAL HISTORY: Right hip pain status post trauma COMPARISON: 09/27/2016 DISCUSSION: No acute fractures or dislocations are visualized. There are postsurgical changes of a to li right hip arthroplasty. Multiple opaque densities within the pelvis, likely represent enteric con tents or accommodation of enteric contents and calcified fibroids. IMPRESSION: 1. 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 No fractures or dislocations identified Electronically signed by: Fitz Mora M.D. 02/20/2019 11:37 AM
[2019-02-20 13:22] LABS: Appearance Urine Clear (Clear); Bacteria Urine Automated Negative (Negative); Bilirubin Urine Negative (Negative); Blood Urine Negative (Negative); Color Urine Dark Yellow; Epithelial Cell Urine Auto >30 /lpf (0-5); Glucose Urine UA Negative (Negative); Ketones Urine 2+ (Negative); Leukocyte Esterase Urine Negative (Negative); Nitrite Urine Negative (Negative); Protein Urine 1+ (Negative); RBC Urine Automated 0-4 /hpf (0-4); Specific Gravity Urine 1.024 (1.000-1.030); Urobilinogen Urine Negative (Negative); pH Urine 5.5 (4.5-7.5)
--- NOTE | 2019-02-20 14:28 | History & Physical Report ---
Date of Service February 20, 2019 Assessment & Plan (1) Seizure: (2) AMS (altered mental status): Pt is 88 y/o F with h/o seizure disorder, HTN, osteoarthritis presented to ER, was found lying on bathroom floor this morning around 9:00am by caregiver. Caregiver reports witnessed seizure like activity lasting approx 15 seconds Pt afebrile, vitals stable. No significant electrolyte abnormality. CPK WNL, CT head without acute findings. CXR without acute findings. UA appears to be contaminant. Urine culture pending Carbamazepine level: 1.5 -In ER reported seizure activity lasting 10-15 seconds -In ER given Ativan 1mg IV -Seizure precautions -Hold home oral meds with pt's current mental status -Keppra IV for now -Neurology consult -Monitor CBC, BMP (3) Hip pain: Reported by ER staff that pt c/o R hip pain R hip xray: no acute fractures -Monitor and reassess when pt more alert (4) HTN (hypertension): Stable -Hold losartan until pt able to take po -Monitor BP (5) Osteoarthritis: -Will hold fentanyl patch and monitor pt's mental status DVT Prophylaxis -Heparin SQ DNR as per pt's living will Follows with Dr Barton for routine care Pt was seen and care coordinated with Dr Florian. See addendum History of Present Illness Chief Complaint: "Seizure" Primary Care Provider: Ervin Barton MD Pt is 88 y/o F with h/o seizure disorder, HTN, osteoarthritis presented to ER with c/o seizure. History obtained from pt's caregiver secondary to pt's current cognitive status. Caregiver reports that she helps pt 3 times a week on Mondays, Tuesdays, to help bathe and dress pt and cook her meals. She states that she also manages pt's medications and puts medications in weekly med container. Caregiver last saw pt on 02/16/19 and pt was at baseline mental status. Caregiver reports that a neighbor reports that they saw pt's bathroom light on this morning around 8am and reports pt responded back to them when they called out her name. Caregiver arrived to house at 9am today and found pt lying on bathroom floor and pt was not speaking then she reports seizure like activity with jerking movements lasting approx 15 seconds. Did not notice bowel/bladder incontinence. Caregiver reports that appears pt did not have her morning medications today as they were still in the med container. She is unsure if pt had other medications recently. Reports last placed fentanyl patch on 02/16/19. In ER reported that pt had tonic clonic seizure like activity lasting 10-15 seconds. She was given Ativan 1mg. Pt now awake but confused and non-verbal. Allergies Allergy/AdvReac Type Severity Reaction Status Date / Time Penicillins Allergy Severe THROAT Verified 02/20/19 11:36 SWELLS adhesive Allergy Intermediate SEVERE Verified 02/20/19 11:36 BLISTERS latex Allergy Mild RASH, Verified 02/20/19 11:36 BLISTERS ranitidine Allergy Mild RASH Verified 02/20/19 11:36 triamcinolone Allergy Mild GENERALIZED Verified 02/20/19 11:36 RASH tetracycline Allergy Unknown UNKNOWN Verified 02/20/19 11:36 topiramate Allergy Unknown UNKNOWN Verified 02/20/19 11:36 MURIEL Inhibitors AdvReac Intermediate COUGH Verified 02/20/19 11:36 valproic acid AdvReac Intermediate DIPLOPIA;SEVERE Verified 02/20/19 11:36 WT LOSS alendronate sodium AdvReac Mild N/V Verified 02/20/19 11:36 Beta-Blockers AdvReac Mild FATIGUE Verified 02/20/19 11:36 (Beta-Adrenergic Bloc codeine AdvReac Mild NAUSEA Verified 02/20/19 11:36 nifedipine AdvReac Mild ABD Verified 02/20/19 11:36 BLOATING Alendronate Sodium TABS Allergy Unknown Unknown Uncoded 02/20/19 11:36 pramipexole Allergy Unknown Unknown Uncoded 02/20/19 11:36 Tramadol Allergy Unknown Unknown Uncoded 02/20/19 11:36 Home Medications Home Medications Medication Instructions Recorded Confirmed Type carbamazepine 200 mg PO BID 02/26/18 02/20/19 History fentanyl 1 dose TOPICAL Q3D 02/26/18 02/20/19 History oxybutynin chloride 5 mg PO BID 02/26/18 02/20/19 History potassium chloride 10 meq PO QAM 02/26/18 02/20/19 History zonisamide 100 mg PO BID 02/26/18 02/20/19 History PreserVision AREDS-2 1 tab PO QAM 09/19/18 02/20/19 History calcium carbonate-vitamin D3 1 tab PO BID 09/19/18 02/20/19 History [Oyster Shell Calcium-Vit D3] ergocalciferol (vitamin D2) 50,000 unit PO MONTHLY 09/19/18 02/20/19 History losartan 50 mg PO QAM 09/19/18 02/20/19 History menthol-zinc oxide [Calmoseptine] 1 applic TOPICAL BID 02/20/19 02/20/19 History omeprazole 20 mg PO QAM 02/20/19 02/20/19 History Past Med/Surg History Medical History Anxiety (Chronic) Benign hypertension (Chronic 02/05/11) Chronic back pain Elbow fracture, left (Resolved) HTN (hypertension) (Chronic) Hypertension Low back pain (Chronic) Osteoarthritis (Chronic) Osteoarthritis Osteoporosis (Chronic) Osteoporosis Restless legs syndrome (Chronic) Seizure disorder (Chronic) Seizure disorder Surgical History History of elbow surgery History of hip replacement History of lumbar laminectomy History of tonsillectomy Status post hip replacement (Chronic) Status post lumbar laminectomy (Chronic) Status post tonsillectomy (Chronic) Family History Mother No pertinent family history Social History Preferred Language: [place] Communication Ability: Effective Data Manager Required: No Beliefs That Will Affect Care: None marital status: Current Living Situation: Alone and Other Current Living Situation Comment: caretakers current occupational status: retired Other Information That Helps Us Care for You: No Feels Safe at Home: Yes Safety Concerns: Feels Safe At This Time Smoking Status: Never smoker Second Hand Exposure: No ; Hx Alcohol Use: No Hx Substance Use: No Review of Systems Review of Systems: Unobtainable due to cognitive status Physical Exam Physical Exam: General: no acute distress, currently awake and confused, thin elderly female Head: normocephalic, atraumatic Eyes: PERRL, EOM's intact, conjunctiva non-injected, anicteric ENT: normal inspection external ears, nose, mucous membranes dry, tongue without noted lacerations Neck: supple, trachea midline Lungs: clear, no respiratory distress, no wheezing/rhonchi/rales CV: RRR, no murmur, no pretibial edema Abd: normal BS, soft, non-tender Ext: no cyanosis, no ecchymosis or edema Neuro: Awake, will follow commands of opening mouth and opening eyes and following finger, otherwise not following commands, non-verbal, noted to be grabbing at monitor leads Skin: warm, dry; right lateral knee with erythema, left lateral knee with erythema Results & Data Vital Signs (Past 12 Hours) Vital Signs Temp Pulse Pulse Resp BP BP Pulse Ox 02/20/19 12:41 82 18 144/79 H 100 02/20/19 11:39 88 16 169/82 H 98 02/20/19 10:57 80 20 118/67 100 02/20/19 10:56 99 02/20/19 10:09 36.8 C 68 16 149/66 H 96 Laboratory Results Short CBC 02/20/19 Range/Units 10:44 WBC 11.10 H (4.8-10.8) K/uL Hgb 12.7 (12.0-16.0) g/dL Hct 37.5 (37-47) % Plt Count 159 (130-400) K/uL BMP 02/20/19 10:44 Sodium 136 Potassium 3.8 Chloride 105 Carbon Dioxide 23 BUN 28 H Creatinine 0.75 Glucose 130 H Calcium 8.9 Cardiac Enzymes 02/20/19 Range/Units 10:44 Total Creatine Kinase 124 (26-192) U/L Liver Function 02/20/19 Range/Units 10:44 Total Bilirubin 0.4 (0.2-1) mg/dl AST 20 (15-37) U/L ALT 26 (12-78) U/L Alkaline Phosphatase 55 (45-117) U/L Albumin 4.2 (3.4-5.0) gm/dl Urine 02/20/19 Range/Units 13:01 Urine Color Dark Yellow Urine Appearance Clear (Clear) Urine pH 5.5 (4.5-7.5) Ur Specific [place] 1.024 (1.000-1.030) Urine Protein 1+ H (Negative) Urine Glucose (UA) Negative (Negative) Diagnostic Findings CT HEAD: IMPRESSION: 1. Chronic small vessel ischemic change. No acute intracranial abnormality. CXR: IMPRESSION: No active disease in the chest. R HIP XRAY: IMPRESSION: 1. 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 No fractures or dislocations identified Code Status & VTE Plan VTE Prophylaxis Plan VTE Prophylaxis will be ordered: Yes Supervising Physician Co-Signing Physician Notes Physical Exam Gen-AAO x 1, NAD, Afebrile, cachectic, frail Head-NCAT, EOMI, PERRLA, Anicteric Sclera, No Posterior Pharyngeal Erythema Neck-Supple, No JVD, No Thyromegaly, No Masses, No LAD, No Bruits Lungs-Clear to Auscultation Bilaterally, No Rales, No Rhonchi, No Wheezing, No Crepitus Chest-No S4, +S1, +S2, No S3, No Murmurs, No Rubs, No Gallops, No Ectopy Abdomen-Soft, Bowel Sounds Present, Non Tender, Non Distended, No Hepatomegaly, No Splenomegaly, No Palpable Masses, No Rebound, No Rigidity, No Guarding Musculoskeletal-Full Range of Motion Bilaterally, No CVAT Extremities-No Cyanosis, No Clubbing, No Edema, atrophy Nuero-Cranial Nerves II-XII grossly intact, Motor WNL, DTRs WNL, Strength WNL, Non Focal Psych-Flat (1) AMS (altered mental status) Altered mental status type: unspecified Qualified Code(s): R41.82 - Altered mental status, unspecified
--- NOTE | 2019-02-20 14:41 | Emergency Department Note ---
Entered by Fara Sher acting as a scribe for Sandra Segovia MD History of Present Illness General Chief complaint: Seizure Time Seen by Provider: 02/20/19 10:38 Source: other (caregiver) Mode of arrival: EMS History of Present Illness Onset (ago): hour(s) (this morning) Location: head Pain Consistency: + other (episode) Quality: + other (seizure) Associated symptoms: + other (tonic clonic movements, glazed over eyes, fall, confusion) The patient is a 88 year old female that is presenting to the Emergency Room with complaints of an episode of a seizure that occurred this morning. The patients caregiver reports that she found the patient on the bathroom floor this morning when she arrived. Her caregiver states that the patient was unable to recognize her even though she has worked with the patient for 3 years. Her caregiver reports that the patients eyes appeared glazed over. Her caregiver notes that she believes that the patient fell sometime early last night prior to going to bed and that the patient appeared to have been on the floor all night. Her caregiver states that the patient started complaining of right hip pain at this time. Her caregiver reports that she went to call the patients neighbor but was unable to because the patient started having a grand mal seizure. Her caregiver states that the seizure lasted for around 10 seconds and that the patient was shaking diffusely during the episode. Her caregiver notes that the patient has a history of seizures with her last known episode occurring in September 2018. He caregiver reports that the patient lives alone with help only on Wednesday, Wednesday, and Wednesday. Her caregiver notes that the patient appears to be compliant with her medications but states that she only manages the patients medications on the days that she cares for the patient. Her caregiver reports t hat the patient has a Fentanyl patch on her chest for her history of osteoporosis. Her caregiver states that she is unsure of the patient takes Keppra. Home Medications Home Medications Medication Instructions Recorded Confirmed Type carbamazepine 200 mg PO BID 02/26/18 02/20/19 History fentanyl 1 dose TOPICAL Q3D 02/26/18 02/20/19 History oxybutynin chloride 5 mg PO BID 02/26/18 02/20/19 History potassium chloride 10 meq PO QAM 02/26/18 02/20/19 History zonisamide 100 mg PO BID 02/26/18 02/20/19 History PreserVision AREDS-2 1 tab PO QAM 09/19/18 02/20/19 History calcium carbonate-vitamin D3 1 tab PO BID 09/19/18 02/20/19 History [Oyster Shell Calcium-Vit D3] ergocalciferol (vitamin D2) 50,000 unit PO MONTHLY 09/19/18 02/20/19 History losartan 50 mg PO QAM 09/19/18 02/20/19 History menthol-zinc oxide [Calmoseptine] 1 applic TOPICAL BID 02/20/19 02/20/19 History omeprazole 20 mg PO QAM 02/20/19 02/20/19 History Allergies Allergy/AdvReac Type Severity Reaction Status Date / Time Penicillins Allergy Severe THROAT Verified 02/20/19 11:36 SWELLS adhesive Allergy Intermediate SEVERE Verified 02/20/19 11:36 BLISTERS latex Allergy Mild RASH, Verified 02/20/19 11:36 BLISTERS ranitidine Allergy Mild RASH Verified 02/20/19 11:36 triamcinolone Allergy Mild GENERALIZED Verified 02/20/19 11:36 RASH tetracycline Allergy Unknown UNKNOWN Verified 02/20/19 11:36 topiramate Allergy Unknown UNKNOWN Verified 02/20/19 11:36 MURIEL Inhibitors AdvReac Intermediate COUGH Verified 02/20/19 11:36 valproic acid AdvReac Intermediate DIPLOPIA;SEVERE Verified 02/20/19 11:36 WT LOSS alendronate sodium AdvReac Mild N/V Verified 02/20/19 11:36 Beta-Blockers AdvReac Mild FATIGUE Verified 02/20/19 11:36 (Beta-Adrenergic Bloc codeine AdvReac Mild NAUSEA Verified 02/20/19 11:36 nifedipine AdvReac Mild ABD Verified 02/20/19 11:36 BLOATING Alendronate Sodium TABS Allergy Unknown Unknown Uncoded 02/20/19 11:36 pramipexole Allergy Unknown Unknown Uncoded 02/20/19 11:36 Tramadol Allergy Unknown Unknown Uncoded 02/20/19 11:36 Past Med/Surg History Medical History Anxiety (Chronic) Benign hypertension (Chronic 02/05/11) Chronic back pain Elbow fracture, left (Resolved) HTN (hypertension) (Chronic) Hypertension Low back pain (Chronic) Osteoarthritis (Chronic) Osteoarthritis Osteoporosis (Chronic) Osteoporosis Restless legs syndrome (Chronic) Seizure disorder (Chronic) Seizure disorder Surgical History History of elbow surgery History of hip replacement History of lumbar laminectomy History of tonsillectomy Status post hip replacement (Chronic) Status post lumbar laminectomy (Chronic) Status post tonsillectomy (Chronic) Family History Mother No pertinent family history Social History Preferred Language: Chinese Communication Ability: Effective Applied Mathematician Required: No Beliefs That Will Affect Care: None marital status: Current Living Situation: Alone and Other Current Living Situation Comment: caretakers current occupational status: retired Other Information That Helps Us Care for You: No Feels Safe at Home: Yes Safety Concerns: Feels Safe At This Time Smoking Status: Never smoker Second Hand Exposure: No ; Hx Alcohol Use: No Hx Substance Use: No Review of Systems ROS is limited secondary to the patient's confusion and seizures. Physical Exam Vital Signs Vital Signs - 24 hr 02/20/19 10:09 02/20/19 10:56 02/20/19 10:57 Temperature 36.8 C Temperature Source Oral Pulse Rate 68 Pulse Rate [Right Finger] 80 Pulse Rhythm Regular Pulse Strength Normal Respiratory Rate 16 20 Respiratory Effort / Characteristics Non-Labored Non-Labored Respiratory Depth Normal Respiratory Pattern Regular Blood Pressure 149/66 H Blood Pressure [Right Arm] 118/67 Blood Pressure Mean 93 Blood Pressure Mean [Right Arm] 84 Pulse Oximetry 96 99 100 Oxygen Delivery Method Room Air Oxymask Oxymask Oxygen Flow Rate Sepsis Recent Fever Within 48 Hours No Sepsis New/Unexplained Change in Mental Status No Sepsis Action Taken by Nursing No Action Required 02/20/19 11:39 02/20/19 12:41 02/20/19 12:46 Temperature Temperature Source Pulse Rate Pulse Rate [Right Finger] 88 82 Pulse Rhythm Pulse Strength Respiratory Rate 16 18 Respiratory Effort / Characteristics Non-Labored Respiratory Depth Respiratory Pattern Blood Pressure Blood Pressure [Right Arm] 169/82 H 144/79 H Blood Pressure Mean Blood Pressure Mean [Right Arm] 111 100 Pulse Oximetry 98 100 Oxygen Delivery Method Oxymask Oxymask Nasal Cannula Oxygen Flow Rate 6 2 Sepsis Recent Fever Within 48 Hours Sepsis New/Unexplained Change in Mental Status Sepsis Action Taken by Nursing Vital signs reviewed. General: Elderly, chronically ill-appearing female, appearing altered but seems to be in some discomfort. HEENT: No scleral icterus, PERRLA, neck supple. Atraumatic. Cardiovascular: Regular rate and rhythm, no extra sounds. Pulmonary: Clear to auscultation bilaterally, normal work of breathing. Abdomen: Soft, nontender, nondistended, positive bowel sounds. Musculoskeletal: Contracted right upper extremity held in flexion, extended decorticate position in left upper extremity, tender to palpation of right inguinal region, pain with any range of motion of right hip. Shortened and internally rotated on right side. NVI. Neurologic: Tonic clonic seizure on exam. Unable to follow exams commands or answer questions. Skin: Warm, dry, no rash Course Course 1040:The patient was evaluated in room A11B. A complete history and physical examination was performed. Patient had a seizure on exam for 10 seconds, and Ativan was ordered at this time. 1147: I revisited the patient at this time. She is resting comfortably. 1331: I discussed the patients case with VITO Westbrook, who will evaluate the patient for further management and care with Dr. Florian as the attending physician. 1340: Upon reevaluation, the patient is resting comfortably. I discussed laboratory and radiographic results with the patient. She verbalized agreement of the treatment plan. The patient will be evaluated for further management and care. Administered Medications Calamine/Phenol (Calmoseptine) 1 appln EXT BID [facility] Stop: 03/22/19 20:59 Last Admin: 02/21/19 07:42 Dose: 1 appln Documented by: [id number] Admin: 02/20/19 21:06 Dose: 1 appln Documented by: [id number] Heparin Sodium (Porcine) (Heparin Sodium (Porcine)) 5,000 units SQ Q12 JAIMEE Stop: 03/22/19 20:59 Last Admin: 02/21/19 07:43 Dose: 5,000 units Documented by: [id number] Cosigned by: [id number] Admin: 02/20/19 21:06 Dose: 5,000 units Documented by: [id number] Cosigned by: [id number] Levetiracetam 500 mg/ Dextrose 105 mls @ 420 mls/hr IV Q12H JAIMEE Stop: 03/22/19 17:59 Last Admin: 02/21/19 17:05 Dose: 420 mls/hr Documented by: [id number] Infusion: 02/21/19 07:44 Dose: 0 mls/hr Documented by: [id number] Admin: 02/21/19 05:27 Dose: 420 mls/hr Documented by: [id number] Infusion: 02/20/19 18:35 Dose: 0 mls/hr Documented by: [id number] Admin: 02/20/19 18:18 Dose: 420 mls/hr Documented by: [id number] Pantoprazole Sodium (Protonix) 40 mg PO QAM JAIMEE Stop: 03/23/19 09:14 Last Admin: 02/21/19 09:53 Dose: 40 mg Documented by: [id number] Discontinued Medications Sodium Chloride (Nss 1000ml) 1,000 mls @ 125 mls/hr IV .Q8H JAIMEE Stop: 03/22/19 10:59 Last Infusion: 02/20/19 17:51 Dose: 0 mls/hr Documented by: [id number] Admin: 02/20/19 10:52 Dose: 125 mls/hr Documented by: [id number] Lorazepam (Ativan) 1 mg in 2 mls @ 2 mls/min IV NOW STA Stop: 02/20/19 10:49 Last Admin: 02/20/19 10:52 Dose: Not Given Documented by: [id number] Sodium Chloride (Nss 1000ml) 1,000 mls @ 80 mls/hr IV .[id number] JAIMEE Stop: 02/21/19 05:33 Last Infusion: 02/21/19 07:45 Dose: 0 mls/hr Documented by: [id number] Admin: 02/20/19 17:55 Dose: 80 mls/hr Documented by: [id number] Lorazepam (Ativan) Confirm Administered Dose 2 mg .ROUTE .STK-MED ONE Stop: 02/20/19 10:45 Last Increment: 02/20/19 10:51 Dose: 1 mg Documented by: [id number] Lorazepam (Ativan) Confirm Administered Dose 2 mg .ROUTE .STK-MED ONE Stop: 02/20/19 15:50 Last Increment: 02/20/19 16:03 Dose: 0.5 mg Documented by: [id number] Potassium Chloride (Klor-Con M20) 20 meq PO NOW STA Stop: 02/21/19 09:08 Last Admin: 02/21/19 09:53 Dose: 20 meq Documented by: [id number] Medical Decision Making Differential Diagnosis Differential diagnoses includes but is not limited to toxic, metabolic, infectious, traumatic, cardiac, neurologic, hematologic, psychiatric, in flammatory, fracture, dislocation, neurovascular compromise, compartment syndrome, soft tissue injury as well as other etiologies Medical Records Attestation: I reviewed the patient's medical records. Home Medications Current Medication List: was personally reviewed by me Laboratory Data Attestation: I reviewed the patient's lab results. Result diagrams: 02/21/19 05:27 02/21/19 05:27 Lab Results 02/20/19 02/20/19 02/20/19 Range/Units 10:27 10:44 10:44 WBC 11.10 H (4.8-10.8) K/uL RBC 3.93 L (4.2-5.4) M/uL Hgb 12.7 (12.0-16.0) g/dL Hct 37.5 (37-47) % MCV 95.4 (80-100) fL MCH 32.3 (25-34) pg MCHC 33.9 (32-36) g/dL RDW Std Deviation 46.5 H (36.4-46.3) fL RDW Coeff of Octavio 13.2 (11.5-14.5) % Plt Count 159 (130-400) K/uL MPV 10.2 (7.4-10.4) fL Immature Gran % (Auto) 0.3 % Neut % (Auto) 85.1 % Lymph % (Auto) 5.8 % [place] % (Auto) 8.6 % Eos % (Auto) 0.0 % Baso % (Auto) 0.2 % Immature Gran # (Auto) 0.03 H (0.00-0.02) K/uL Neut # (Auto) 9.45 H (1.4-6.5) K/uL Lymph # (Auto) 0.64 L (1.2-3.4) K/uL [place] # (Auto) 0.96 H (0.11-0.59) K/uL Eos # (Auto) 0.00 (0-0.5) K/uL Baso # (Auto) 0.02 (0-0.2) K/uL Sodium 136 (136-145) mmol/L Potassium 3.8 (3.5-5.1) mmol/L Chloride 105 (98-107) mmol/L Carbon Dioxide 23 (21-32) mmol/L Anion Gap 8.0 (3-11) BUN 28 H (7-18) mg/dl Creatinine 0.75 (0.6-1.2) mg/dl Est Cr Clr Drug Dosing 24.5 ml/min Est GFR ( Amer) 82.5 Est GFR (Non-Af Amer) 71.2 BUN/Creatinine Ratio 37.7 H (10-20) Glucose 130 H (70-99) mg/dl POC Glucose 130 H (70-99) Calcium 8.9 (8.5-10.1) mg/dl Magnesium (1.8-2.4) mg/dl Total Bilirubin 0.4 (0.2-1) mg/dl AST 20 (15-37) U/L ALT 26 (12-78) U/L Alkaline Phosphatase 55 (45-117) U/L Total Creatine Kinase (26-192) U/L Total Protein 7.2 (6.4-8.2) gm/dl Albumin 4.2 (3.4-5.0) gm/dl Globulin 3.0 (2.5-4.0) gm/dl Albumin/Globulin Ratio 1.4 (0.9-2) Urine Color Urine Appearance (Clear) Urine pH (4.5-7.5) Ur Specific [place] (1.000-1.030) Urine Protein (Negative) Urine Glucose (UA) (Negative) Urine Ketones (Negative) Urine Blood (Negative) Urine Nitrite (Negative) Urine Bilirubin (Negative) Urine Urobilinogen (Negative) Ur Leukocyte Esterase (Negative) Urine WBC (Auto) (0-5) /hpf Urine RBC (Auto) (0-4) /hpf U Hyaline Cast (Auto) (0-5) /lpf U Epithel Cells (Auto) (0-5) /lpf Urine Bacteria (Auto) (Negative) Carbamazepine (4-12) mcg/ml 02/20/19 02/20/19 02/20/19 Range/Units 10:44 10:44 10:44 WBC (4.8-10.8) K/uL RBC (4.2-5.4) M/uL Hgb (12.0-16.0) g/dL Hct (37-47) % MCV (80-100) fL MCH (25-34) pg MCHC (32-36) g/dL RDW Std Deviation (36.4-46.3) fL RDW Coeff of Octavio (11.5-14.5) % Plt Count (130-400) K/uL MPV (7.4-10.4) fL Immature Gran % (Auto) % Neut % (Auto) % Lymph % (Auto) % [place] % (Auto) % Eos % (Auto) % Baso % (Auto) % Immature Gran # (Auto) (0.00-0.02) K/uL Neut # (Auto) (1.4-6.5) K/uL Lymph # (Auto) (1.2-3.4) K/uL [place] # (Auto) (0.11-0.59) K/uL Eos # (Auto) (0-0.5) K/uL Baso # (Auto) (0-0.2) K/uL Sodium (136-145) mmol/L Potassium (3.5-5.1) mmol/L Chloride (98-107) mmol/L Carbon Dioxide (21-32) mmol/L Anion Gap (3-11) BUN (7-18) mg/dl Creatinine (0.6-1.2) mg/dl Est Cr Clr Drug Dosing ml/min Est GFR ( Amer) Est GFR (Non-Af Amer) BUN/Creatinine Ratio (10-20) Glucose (70-99) mg/dl POC Glucose (70-99) Calcium (8.5-10.1) mg/dl Magnesium 2.4 (1.8-2.4) mg/dl Total Bilirubin (0.2-1) mg/dl AST (15-37) U/L ALT (12-78) U/L Alkaline Phosphatase (45-117) U/L Total Creatine Kinase 124 (26-192) U/L Total Protein (6.4-8.2) gm/dl Albumin (3.4-5.0) gm/dl Globulin (2.5-4.0) gm/dl Albumin/Globulin Ratio (0.9-2) Urine Color Urine Appearance (Clear) Urine pH (4.5-7.5) Ur Specific [place] (1.000-1.030) Urine Protein (Negative) Urine Glucose (UA) (Negative) Urine Ketones (Negative) Urine Blood (Negative) Urine Nitrite (Negative) Urine Bilirubin (Negative) Urine Urobilinogen (Negative) Ur Leukocyte Esterase (Negative) Urine WBC (Auto) (0-5) /hpf Urine RBC (Auto) (0-4) /hpf U Hyaline Cast (Auto) (0-5) /lpf U Epithel Cells (Auto) (0-5) /lpf Urine Bacteria (Auto) (Negative) Carbamazepine 1.5 L (4-12) mcg/ml 02/20/19 Range/Units 13:01 WBC (4.8-10.8) K/uL RBC (4.2-5.4) M/uL Hgb (12.0-16.0) g/dL Hct (37-47) % MCV (80-100) fL MCH (25-34) pg MCHC (32-36) g/dL RDW Std Deviation (36.4-46.3) fL RDW Coeff of Octavio (11.5-14.5) % Plt Count (130-400) K/uL MPV (7.4-10.4) fL Immature Gran % (Auto) % Neut % (Auto) % Lymph % (Auto) % [place] % (Auto) % Eos % (Auto) % Baso % (Auto) % Immature Gran # (Auto) (0.00-0.02) K/uL Neut # (Auto) (1.4-6.5) K/uL Lymph # (Auto) (1.2-3.4) K/uL [place] # (Auto) (0.11-0.59) K/uL Eos # (Auto) (0-0.5) K/uL Baso # (Auto) (0-0.2) K/uL Sodium (136-145) mmol/L Potassium (3.5-5.1) mmol/L Chloride (98-107) mmol/L Carbon Dioxide (21-32) mmol/L Anion Gap (3-11) BUN (7-18) mg/dl Creatinine (0.6-1.2) mg/dl Est Cr Clr Drug Dosing ml/min Est GFR ( Amer) Est GFR (Non-Af Amer) BUN/Creatinine Ratio (10-20) Glucose (70-99) mg/dl POC Glucose (70-99) Calcium (8.5-10.1) mg/dl Magnesium (1.8-2.4) mg/dl Total Bilirubin (0.2-1) mg/dl AST (15-37) U/L ALT (12-78) U/L Alkaline Phosphatase (45-117) U/L Total Creatine Kinase (26-192) U/L Total Protein (6.4-8.2) gm/dl Albumin (3.4-5.0) gm/dl Globulin (2.5-4.0) gm/dl Albumin/Globulin Ratio (0.9-2) Urine Color Dark Yellow Urine Appearance Clear (Clear) Urine pH 5.5 (4.5-7.5) Ur Specific [place] 1.024 (1.000-1.030) Urine Protein 1+ H (Negative) Urine Glucose (UA) Negative (Negative) Urine Ketones 2+ H (Negative) Urine Blood Negative (Negative) Urine Nitrite Negative (Negative) Urine Bilirubin Negative (Negative) Urine Urobilinogen Negative (Negative) Ur Leukocyte Esterase Negative (Negative) Urine WBC (Auto) 1-5 (0-5) /hpf Urine RBC (Auto) 0-4 (0-4) /hpf U Hyaline Cast (Auto) 10-30 H (0-5) /lpf U Epithel Cells (Auto) >30 H (0-5) /lpf Urine Bacteria (Auto) Negative (Negative) Carbamazepine (4-12) mcg/ml Imaging Data Radiologist's Impression: Radiology results as stated below per my review and the radiologist's interpretation: CT head/brain wo con CLINICAL HISTORY: 88 years-old Female presenting with seizure. TECHNIQUE: Multidetector CT imaging of the head was performed without the use of intravenous contrast. IV contrast: None. One or more dose lowering techniques were used consistent with the principles of ALARA (as low as reasonably achievable), including automatic exposure control, mA or kV adjustment to individual patient size, and/or use of iterative reconstruction. COMPARISON: 09/19/2018. CT DOSE (mGy.cm): The estimated cumulative dose is 1363.67 mGy.cm. FINDINGS: Garbage Collector topogram: Unremarkable. Proportional ventricular and sulcal prominence, likely age-related parenchymal volume loss. No hemorrhage. Periventricular and subcortical white matter hypoattenuation, nonspecific but likely indicative of chronic small vessel ischemic change. No acute territorial infarct. No mass effect or midline shift. No extra-axial fluid collection. Redemonstration of the calcified focus along the paramedian right tentorium, possibly dural ossification or calcification versus a heavily calcified meningioma. Paranasal sinuses and mastoid air cells clear. Calvarium intact. IMPRESSION: 1. Chronic small vessel ischemic change. No acute intracranial abnormality. Electronically signed by: Kapil Stanley M.D. 02/20/2019 11:27 AM XR hip RT min 2V CLINICAL HISTORY: Right hip pain status post trauma COMPARISON: 09/27/2016 DISCUSSION: No acute fractures or dislocations are visualized. There are postsurgical changes of a total right hip arthroplasty. Multiple opaque densities within the pelvis, likely represent enteric contents or accommodation of enteric contents and calcified fibroids. IMPRESSION: 1. 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 No fractures or dislocations identified Electronically signed by: Fitz Mora M.D. 02/20/2019 11:37 AM XR chest 1V portable CLINICAL HISTORY: Chest pain status post trauma COMPARISON STUDY: 11/17/2018 FINDINGS: The cardiac and mediastinal contours are normal. There is no evidence of focal pulmonary consolidation. There is no evidence of failure. No pleural effusions are visualized.[There are multiple old bilateral rib fractures. There is no pneumothorax. There is a scoliosis. Postsurgical changes are present within the lumbar spine. IMPRESSION: No active disease in the chest. Electronically signed by: Fitz Mora M.D. 02/20/2019 11:35 AM ECG Data Attestation: I personally reviewed and interpreted this ECG as follows: Indication: + weakness Rate (beats per minute): 78 Rhythm: + normal sinus ECG Findings: + Other (poor quality baseline, low voltage); no PACs and no PVCs Comparison ECG Date: from (11/17/18) Change: no significant change Blood Pressure Blood Pressure Findings: Elevated blood pressure Blood Pressure Disposition: Referred to patients primary care provider MDM Narrative This patient was evaluated and appeared to be in no significant distress. IV access was obtained and laboratory work was drawn. The patient was placed on the gearcase assembler. During my evaluation the patient did experience a grand mal seizure. It was fairly short-lived, less than 30 seconds. The patient was given 1 mg of IV Ativan subsequently. CT scan of the head was performed and is negative. Laboratory work reveals a subtherapeutic Tegretol level. Patient remained fairly postictal throughout her stay. EKG reveals a normal sinus rhythm at 78 bpm. There is no evidence of injury to the right hip and chest x- ray is negative. UA is contaminated but likely negative for acute infectious process. Likely the patient's seizure activity and altered mentation are related to subtherapeutic antiepileptic medications. Patient's case was discussed with the hospitalist service who will evaluate the patient for further management. Impression & Plan Seizure, Fall, AMS (altered mental status) Discharge Plan Visit Data *Final* Discharge Date/Time: 02/20/19 16:42 Chief Complaint: Seizure ED Provider: Sandra Segovia Discharge Problem: Seizure, Fall, AMS (altered mental status) Patient Disposition: Admitted As Inpatient Discharge Instructions Interventions: ED Discharge Assessment Last Done: 02/20/19 16:42 Discharge Problem: Fall Qualifiers: Encounter type: initial encounter Qualified Code(s): W19.XXXA - Unspecified fall, initial encounter AMS (altered mental status) Qualifiers: Altered mental status type: unspecified Qualified Code(s): R41.82 - Altered mental status, unspecified The scribe's documentation has been prepared under my direction and personally reviewed by me in its entirety. I confirm that the note above accurately reflects all work, treatment, procedures, and medical decision making performed by me.
[2019-02-20] MEDS ORDERED: LORazepam 0.5 MG/1 ML VIAL IV STA (15:41)
[2019-02-20] MEDS ORDERED: ACETAMINOPHEN 325 MG TAB PO PRN (17:04)
[2019-02-20] MEDS ORDERED: LORazepam 0.5 MG/1 ML VIAL IV PRN (17:04)
[2019-02-20] MEDS ORDERED: CALCIUM 600MG + VIT D 400 IU TAB PO SCH (18:00)
[2019-02-20] MEDS ORDERED: carBAMazepine 200 MG TABLET PO SCH (21:00)
[2019-02-20] MEDS: HEPARIN SOD 5,000 UNIT/0.5 ML VIAL SQ SCH (21:06)
[2019-02-20] MEDS: MENTHOL-ZINC OXIDE 360 APPLN/120 GM TUBE EXT SCH (21:06)
[2019-02-21 05:47] LABS: Hematocrit (blood only) 33.6 % (37-47); Hemoglobin 11.4 g/dL (12.0-16.0); Mean Corpuscular Hgb Conc 33.9 g/dL (32-36); Mean Corpuscular Volume 97.4 fL (80-100); Mean Platelet Volume 9.3 fL (7.4-10.4); Platelet Count 187 K/uL (130-400); RDW Coefficient of Variation 13.4 % (11.5-14.5); RDW Standard Deviation 47.7 fL (36.4-46.3); Red Blood Count 3.45 M/uL (4.2-5.4); White Blood Count 7.18 K/uL (4.8-10.8)
[2019-02-21 06:20] LABS: BUN Creatinine Ratio 33.8 (10-20); Est GFR (African American) 97.6; Est GFR (Non-African American) 84.3; Potassium 3.3 mmol/L (3.5-5.1)
[2019-02-21] MEDS: MENTHOL-ZINC OXIDE 360 APPLN/120 GM TUBE EXT SCH ×2 (07:42→22:11)
[2019-02-21] MEDS: HEPARIN SOD 5,000 UNIT/0.5 ML VIAL SQ SCH ×2 (07:43→22:11)
[2019-02-21] MEDS ORDERED: POTASSIUM CHLORIDE 10 MEQ TABCR PO SCH (09:00)
[2019-02-21] MEDS ORDERED: PANTOprazole 40 MG TAB PO SCH (09:00)
[2019-02-21] MEDS ORDERED: CEROVITE ADV FORMULA TAB PO SCH (09:00)
[2019-02-21] MEDS ORDERED: LOSARTAN POTASSIUM 50 MG TAB PO SCH (09:00)
[2019-02-21] MEDS ORDERED: OXYBUTYNIN CHLORIDE XL 5 MG TABCR PO SCH (09:00)
[2019-02-21] MEDS ORDERED: POTASSIUM CHLORIDE 20 MEQ TABCR PO STA (09:07)
[2019-02-21] MEDS: PANTOprazole 40 MG TAB PO SCH (09:53)
--- NOTE | 2019-02-21 14:19 | Neurology Consultation ---
Date of Consultation February 21, 2019 Assessment & Plan (1) Seizure: Carolee Long is an 88-year-old woman with past medical history of hypertension, epilepsy, chronic low back pain, osteoporosis and anxiety who presents to [facility] after a breakthrough seizure. #Breakthrough seizure: -Please send Tegretol and Zonegran drug levels. These would likely not be back before she leaves but can be followed up by Dr. Kraft as an outpatient Would restart Tegretol 200 mg twice daily and Zonegran 100 mg twice daily She should follow-up with Dr. Kraft in clinic in the next 1 to 2 weeks given her breakthrough seizure to see if she needs any med adjustment (would consider switching to Aptiom or other AED that would be once a day dosing, she would be interested in something like this) #AMS: Query whether an 88-year-old woman should be on a fentanyl patch. Would consider having either inpatient or outpatient pain management waiting on alternative strategies as this should be avoided per Beers criteria. We will sign off at this time. Please call or text with any questions. Present on Admission?: Yes (2) Fall: Present on Admission?: Yes (3) AMS (altered mental status): History of Present Illness Attending Physician: Cesar Simental MD History of Present Illness Carolee Long is an 88-year-old woman with past medical history of hypertension, epilepsy, chronic low back pain, osteoporosis and anxiety who presents to [facility] after a breakthrough seizure. Per report, patient caregiver found her on the bathroom floor around 9 AM on 02/20/2019. Caregiver reported that patient was unable to recognize her and had a brief 10 to 15-second episode of generalized shaking. There was no tongue biting or loss of bowel or bladder that was noted at that time. Unknown if she had taken her medications or not. There was some concern that she had had a fall and been lying on the bathroom floor overnight. In the ED, she was noted to again have another 10 to 15-second seizure and was given 1 mg of Ativan with resolution of shaking movements. Postictally, she was confused and not answering questions so was admitted for prolonged postictal period. Lab work was notable for white count of 11.1, hemoglobin 12.7, platelets 159, sodium 136, normal gap, mildly elevated BUN at 28, creatinine 0.75, glucose 130, calcium 8.9, mag 2.4, CK 124, UA positive for protein and ketones but no sign of infection. Chest x-ray showed no infection. Hip x-ray showed no fractures or dislocations. CT head showed small vessel ischemic disease but no hemorrhage or hypodensity. On evaluation today, reports that she feels back to her baseline but would like to have her home antiepileptic medications. She is worried that if she will think it them since she may have a breakthrough seizure again. She does not want to have any further breakthrough seizures. She does not remember forgetting any doses of medication or what happened right before she came to the hospital. She denies any recent illnesses. She does recall going to the bathroom in the setting she was not going to take a bath but does not remember anything after that. Allergies Allergy/AdvReac Type Severity Reaction Status Date / Time Penicillins Allergy Severe THROAT Verified 02/20/19 11:36 SWELLS adhesive Allergy Intermediate SEVERE Verified 02/20/19 11:36 BLISTERS latex Allergy Mild RASH, Verified 02/20/19 11:36 BLISTERS ranitidine Allergy Mild RASH Verified 02/20/19 11:36 triamcinolone Allergy Mild GENERALIZED Verified 02/20/19 11:36 RASH tetracycline Allergy Unknown UNKNOWN Verified 02/20/19 11:36 topiramate Allergy Unknown UNKNOWN Verified 02/20/19 11:36 MURIEL Inhibitors AdvReac Intermediate COUGH Verified 02/20/19 11:36 valproic acid AdvReac Intermediate DIPLOPIA;SEVERE Verified 02/20/19 11:36 WT LOSS alendronate sodium AdvReac Mild N/V Verified 02/20/19 11:36 Beta-Blockers AdvReac Mild FATIGUE Verified 02/20/19 11:36 (Beta-Adrenergic Bloc codeine AdvReac Mild NAUSEA Verified 02/20/19 11:36 nifedipine AdvReac Mild ABD Verified 02/20/19 11:36 BLOATING Alendronate Sodium TABS Allergy Unknown Unknown Uncoded 02/20/19 11:36 pramipexole Allergy Unknown Unknown Uncoded 02/20/19 11:36 Tramadol Allergy Unknown Unknown Uncoded 02/20/19 11:36 Home Medications Home Medications Medication Instructions Recorded Confirmed Type carbamazepine 200 mg PO BID 02/26/18 02/20/19 History fentanyl 1 dose TOPICAL Q3D 02/26/18 02/20/19 History oxybutynin chloride 5 mg PO BID 02/26/18 02/20/19 History potassium chloride 10 meq PO QAM 02/26/18 02/20/19 History zonisamide 100 mg PO BID 02/26/18 02/20/19 History PreserVision AREDS-2 1 tab PO QAM 09/19/18 02/20/19 History calcium carbonate-vitamin D3 1 tab PO BID 09/19/18 02/20/19 History [Oyster Shell Calcium-Vit D3] ergocalciferol (vitamin D2) 50,000 unit PO MONTHLY 09/19/18 02/20/19 History losartan 50 mg PO QAM 09/19/18 02/20/19 History menthol-zinc oxide [Calmoseptine] 1 applic TOPICAL BID 02/20/19 02/20/19 History omeprazole 20 mg PO QAM 02/20/19 02/20/19 History Patient History Medical History Anxiety (Chronic) Benign hypertension (Chronic 02/05/11) Chronic back pain Elbow fracture, left (Resolved) HTN (hypertension) (Chronic) Hypertension Low back pain (Chronic) Osteoarthritis (Chronic) Osteoarthritis Osteoporosis (Chronic) Osteoporosis Restless legs syndrome (Chronic) Seizure disorder (Chronic) Seizure disorder Surgical History History of elbow surgery History of hip replacement History of lumbar laminectomy History of tonsillectomy Status post hip replacement (Chronic) Status post lumbar laminectomy (Chronic) Status post tonsillectomy (Chronic) Family History Mother No pertinent family history Social History Preferred Language: Lithuanian Communication Ability: Effective Marketing Program Coordinator Required: No Beliefs That Will Affect Care: None marital status: Current Living Situation: Alone and Other Current Living Situation Comment: caretakers current occupational status: retired Other Information That Helps Us Care for You: No Feels Safe at Home: Yes Safety Concerns: Feels Safe At This Time Smoking Status: Never smoker Second Hand Exposure: No ; Hx Alcohol Use: No Hx Substance Use: No Review of Systems Review of Systems: 14 point review of systems completed and negative except as in HPI. Physical Exam Physical Exam: General Exam: GEN: NAD, sitting in chair. HEENT: No conjunctival injection, no rhinorrhea. CV: RRR, no peripheral edema PULM: Nonlabored respirations on room air. Neuro Exam: MS: Awake and Alert. Oriented to person, place, but not month or year. Speech fluent and appropriate without dysarthria or paraphasic errors. Language intact including naming, comprehension, repetition. Mild difficulties with recall and short-term memory. Attention intact. No neglect. CN: Visual pierce full. No extinction to double simultaneous stimuli. No optic disc edema on fundoscopic exam. PERRLA OU. EOMI without nystagmus. Facial sensation intact to LT. Facial muscles full and symmetric. Hearing intact to conversation. Uvula midline with symmetric palatal elevation. Shoulder shrug normal. Tongue midline. MOTOR: Normal bulk and tone. No pronator drift. BUE strength 5/5 at deltoids, biceps, triceps, wrist flexors and extensors, and hand bilaterally. BLE strength 5-/5 at iliopsoas, hamstrings, quadriceps, 5/5 tibialis anterior, and 5-/5 gastrocnemius bilaterally. REFLEXES: 1+ at biceps, triceps, brachioradialis, 1+ right patella, 2+ left patella and absent Achilles bilaterally. Toes mute bilaterally. SENSORY: Intact to LT without extinction to double simultaneous stimuli. Vibration intact throughout. COORDINATION: No dysmetria or ataxia on [id number] bilaterally. Normal Shari bilaterally. GAIT: Deferred given fall risk Results & Data Vital Signs (Past 12 Hours) Vital Signs Temp Pulse Pulse Resp BP Pulse Ox 02/21/19 11:21 36.6 C 66 20 113/59 L 99 02/21/19 08:00 55 L 02/21/19 07:55 36.8 C 55 L 16 118/62 97 02/21/19 03:52 36.8 C 53 L 19 111/48 L 97 Laboratory Results Abnormal lab results 02/21/19 02/21/19 Range/Units 05:27 05:27 RBC 3.45 L (4.2-5.4) M/uL Hgb 11.4 L (12.0-16.0) g/dL Hct 33.6 L (37-47) % RDW Std Deviation 47.7 H (36.4-46.3) fL Potassium 3.3 L (3.5-5.1) mmol/L Chloride 110 H (98-107) mmol/L Creatinine 0.54 L (0.6-1.2) mg/dl BUN/Creatinine Ratio 33.8 H (10-20) Calcium 8.0 L (8.5-10.1) mg/dl PG Care Time/CCT Total # of Minutes Spent Total Time Spent with Patient: Total time spent is greater than 50% in coordination of care (as documented) at patient's floor/unit and/or counseling patient: (1) AMS (altered mental status) Altered mental status type: unspecified Qualified Code(s): R41.82 - Altered mental status, unspecified (2) Fall Encounter type: initial encounter Qualified Code(s): W19.XXXA - Unspecified fall, initial encounter
--- NOTE | 2019-02-21 17:31 | Hospitalist Progress Note ---
Date of Service February 21, 2019 Assessment & Plan (1) Seizure: (2) AMS (altered mental status): Patient is an 88 yr female with H/O seizure disorder, HTN, osteoarthritis presented to ER, was found lying on bathroom floor this morning around 9:00am by caregiver. Caregiver reports witnessed seizure like activity lasting approx 15 seconds Breakthrough seizure Altered mental status secondary to seizure CT head:Chronic small vessel ischemic change. No acute intracranial abnormality. Carbamazepine level: 1.5 Zonisamide level: pending Currently on IV Keppra Plan to restart zonisamide, carbamazepine Follows with Dr. Kraft as outpatient Appreciate neurology input Ativan as needed for seizure Seizure precautions Mental status back to baseline Abnormal urine Denies any dysuria Urine culture pending No antibiotics for now Hypokalemia Replace potassium Check magnesium levels in a.m. Monitor electrolytes (3) Hip pain: Reported by ER staff that pt c/o R hip pain R hip xray: no acute fractures Denies any hip pain today Monitor (4) HTN (hypertension): Blood pressure relatively low Hold losartan until BP improves Monitor (5) Osteoarthritis: hold fentanyl patch for now DVT Px: Heparin SQ Code Status DNI/DNR Disposition PT OT prior to discharge Subjective Patient is seen and examined at bedside She is unsure of the events that happened yesterday Complaints of mild soreness of the tongue Denies any chest pain, shortness of breath, dizziness, nausea, abdominal pain Offers no other complaints No seizure activity since hospitalization Review of Systems Review of Systems: All systems reviewed & are unremarkable except as noted in HPI & below Physical Exam Physical Exam: Physical Exam: Vitals signs as noted above General Appearance:Elderly, thin, frail,no apparent distress, Kyphosis Head: normocephalic, Atraumatic Eyes: normal inspection, EOMI Neck: supple, Trachea midline Respiratory/Chest: Normal breath sounds, CTA Cardiovascular: S1, S2, No murmur Abdomen/GI:Soft, Non tender, Bowel sounds present Extremities/Musculoskelatal:normal inspection, no edema Neurologic/Psych:AAOX3, grossly no focal neurological deficits Skin: normal color, warm Results & Data Vital Signs (Past 12 Hours) Vital Signs Temp Pulse Pulse Resp BP Pulse Ox 02/21/19 16:00 55 L 02/21/19 15:15 36.8 C 53 L 18 124/64 98 11/26/19 11:21 36.6 C 66 20 113/59 L 99 02/21/19 08:00 55 L 02/21/19 07:55 36.8 C 55 L 16 118/62 97 Laboratory Results Short CBC 02/21/19 Range/Units 05:27 WBC 7.18 (4.8-10.8) K/uL Hgb 11.4 L (12.0-16.0) g/dL Hct 33.6 L (37-47) % Plt Count 187 (130-400) K/uL BMP 02/21/19 05:27 Sodium 139 Potassium 3.3 L Chloride 110 H Carbon Dioxide 21 BUN 18 Creatinine 0.54 L Glucose 73 Calcium 8.0 L (1) AMS (altered mental status) Altered mental status type: unspecified Qualified Code(s): R41.82 - Altered mental status, unspecified
[2019-02-21] MEDS: carBAMazepine 200 MG TABLET PO SCH (22:11)
[2019-02-22] MEDS: MENTHOL-ZINC OXIDE 360 APPLN/120 GM TUBE EXT SCH ×2 (08:11→20:31)
[2019-02-22] MEDS: HEPARIN SOD 5,000 UNIT/0.5 ML VIAL SQ SCH ×2 (08:11→20:31)
[2019-02-22] MEDS: PANTOprazole 40 MG TAB PO SCH (08:12)
[2019-02-22] MEDS: carBAMazepine 200 MG TABLET PO SCH ×2 (08:12→20:31)
[2019-02-22 08:26] LABS: BUN Creatinine Ratio 27.2 (10-20); Calcium 8.6 mg/dl (8.5-10.1); Creatinine Clr Calc Pharmacy 30.7 ml/min; Est GFR (African American) 92.8; Est GFR (Non-African American) 80.1; Magnesium 2.1 mg/dl (1.8-2.4); Potassium 3.5 mmol/L (3.5-5.1)
--- NOTE | 2019-02-22 15:08 | Hospitalist Progress Note ---
Date of Service February 22, 2019 Assessment & Plan (1) Seizure: -Patient is an 88 yr female with H/O seizure disorder, HTN, osteoarthritis presented to ER, was found lying on bathroom floor this morning around 9:00am by caregiver. Caregiver reports witnessed seizure like activity lasting approx 15 seconds -altered mental status from seizure appears to be resolved at this time -patient has been evaluated by [facility] on 04/23/18 -patient currently on home dose carbamazepine 200 mg BID as recommended by [facility] -[facility] also recommended to resume home dose zonisamide 100 mg BID; but because this home medication is non-formulary, patient currently on Keppra 500 mg q12 hours as second agent -reporting manager to notify family members to bring home medication -patient may be transferred from telemetry to medical jackson bed on 02/22/19 (2) AMS (altered mental status): -Altered mental status secondary to seizure -appears to be responding to questions adequately at this time -urine culture: More than three types of organisms present, all moderate counts mixed probable skin cynthia. No further identifications or sensitivities to follow. (3) HTN (hypertension): -Blood pressure is controlled while off losartan -hold losartan home medication for now Hypokalemia -02/21/19 serum potassium of 3.3 -improved after potassium supplementation (4) Hip pain: -Reported by ER staff that pt c/o R hip pain -R hip xray: no acute fractures -Denies any hip pain at this time (5) Osteoarthritis: -avoiding fentanyl patch -Disposition: as per case specialist and patient's family member preference and with patient consensus about disposition to acute physical rehabilitation or nursing home facility due to concerns of being a fall risk DVT Px: Heparin SQ Code Status DNI/DNR Subjective No telemetry events. Patient seen and examined while sitting in chair. Conversing well. answered the questions from medical doctor appropriately. denies acute pain. breathing comfortably on room air. Review of Systems Review of Systems: All systems reviewed & are unremarkable except as noted in HPI & below Physical Exam Constitutional: comfortable Eyes: PERRL, conjunctivae normal, anicteric sclerae EOM intact bilaterally ENMT: external ear and nose normal, oropharynx normal Neck: normal visual inspection Respiratory: normal respiratory effort, lungs clear to auscultation Cardiovascular: RRR, no murmur, no edema Gastrointestinal (Abdomen): normal bowel sounds, soft, nontender, no hepatosplenomegaly Musculoskeletal: Head/Neck/Chest: normocephalic and head atraumatic Spine: + kyphosis Neurologic: PERRL, EOMI, accommodation nl, no face palsy, no dysarthria Psychiatric: Orientation: cooperative Results & Data Vital Signs (Past 12 Hours) Vital Signs Temp Pulse Pulse Resp BP Pulse Ox 02/22/19 15:00 74 02/22/19 11:38 36.9 C 75 20 113/67 98 02/22/19 08:00 54 L 02/22/19 07:51 36.9 C 57 L 20 138/77 99 02/22/19 04:00 36.8 C 63 121/55 L 99 (1) AMS (altered mental status) Altered mental status type: unspecified Qualified Code(s): R41.82 - Altered mental status, unspecified
[2019-02-23 05:47] LABS: Hematocrit (blood only) 31.2 % (37-47); Hemoglobin 10.8 g/dL (12.0-16.0); Mean Corpuscular Hgb Conc 34.6 g/dL (32-36); Mean Corpuscular Volume 95.4 fL (80-100); Mean Platelet Volume 9.4 fL (7.4-10.4); Platelet Count 175 K/uL (130-400); RDW Coefficient of Variation 13.3 % (11.5-14.5); RDW Standard Deviation 46.6 fL (36.4-46.3); Red Blood Count 3.27 M/uL (4.2-5.4); White Blood Count 5.49 K/uL (4.8-10.8)
[2019-02-23] MEDS: HEPARIN SOD 5,000 UNIT/0.5 ML VIAL SQ SCH ×2 (09:57→21:09)
[2019-02-23] MEDS: MENTHOL-ZINC OXIDE 360 APPLN/120 GM TUBE EXT SCH ×2 (09:57→21:09)
[2019-02-23] MEDS: carBAMazepine 200 MG TABLET PO SCH ×2 (09:57→21:10)
[2019-02-23] MEDS: PANTOprazole 40 MG TAB PO SCH (09:57)
--- NOTE | 2019-02-23 13:55 | Hospitalist Progress Note ---
Date of Service February 23, 2019 Assessment & Plan (1) Seizure: -Patient is an 88 yr female with H/O seizure disorder, HTN, osteoarthritis presented to ER, was found lying on bathroom floor this morning around 9:00am by caregiver. Caregiver reports witnessed seizure like activity lasting approx 15 seconds -altered mental status from seizure appears to be resolved at this time -patient has been evaluated by [facility] on 04/23/18 -patient currently on home dose carbamazepine 200 mg BID as recommended by [facility] also recommended to resume home dose zonisamide 100 mg BID; but because this home medication is non-formulary, patient currently on Keppra 500 mg q12 hours as second agent -interactive project manager to notify family members to bring home medication zonisamide -patient transferred from telemetry to medical jackson bed on 02/22/19 -as of 02/23/19, awaiting family member to bring in the zonisamide. as per lead case manager today, of patient has zonisamide medicine with her then this may expedite discharge and transfer to [facility] (2) AMS (altered mental status): -Altered mental status secondary to seizure -appears to be responding to questions adequately at this time -urine culture: More than three types of organisms present, all moderate counts mixed probable skin cynthia. No further identifications or sensitivities to follow. (3) HTN (hypertension): -resume losartan as lower than original home dose Hypokalemia -02/21/19 serum potassium of 3.3 -improved after potassium supplementation (4) Hip pain: -Reported by ER staff that pt c/o R hip pain -R hip xray: no acute fractures -Denies any hip pain at this time (5) Osteoarthritis: -avoiding fentanyl patch -Disposition: as per lead case manager and patient's family member preference and with patient consensus about disposition to acute physical rehabilitation or [facility] facility such as [facility] due to concerns of being a fall risk DVT Px: Heparin SQ Code Status DNI/DNR Subjective Patient seen and examined at bedside. She reports good sleep. No acute distress. She answers questions appropriately. no shortness of breath. no chest pain. no abdominal pain. ate the meal Review of Systems Review of Systems: All systems reviewed & are unremarkable except as noted in HPI & below Physical Exam Constitutional: comfortable Eyes: PERRL, conjunctivae normal, anicteric sclerae EOM intact bilaterally ENMT: external ear and nose normal, oropharynx normal Neck: normal visual inspection Respiratory: normal respiratory effort, lungs clear to auscultation Cardiovascular: RRR, no murmur, no edema Gastrointestinal (Abdomen): normal bowel sounds, soft, nontender, no hepatosplenomegaly Musculoskeletal: Head/Neck/Chest: normocephalic and head atraumatic Spine: + kyphosis Neurologic: PERRL, EOMI, accommodation nl, no face palsy, no dysarthria Psychiatric: Orientation: cooperative Results & Data Vital Signs (Past 12 Hours) Vital Signs Temp Pulse Resp BP Pulse Ox 02/23/19 07:00 36.8 C 60 16 129/63 96 (1) AMS (altered mental status) Altered mental status type: unspecified Qualified Code(s): R41.82 - Altered mental status, unspecified
[2019-02-23] MEDS: LOSARTAN POTASSIUM 25 MG TAB PO SCH (14:45)
[2019-02-23] MEDS: levETIRAcetam 500 MG TAB PO SCH (21:10)
[2019-02-24 07:18] VITALS: BP 120/58; PULSE 62; TEMP 98.4; O2SAT 97
[2019-02-24] MEDS: PANTOprazole 40 MG TAB PO SCH (09:18)
[2019-02-24] MEDS: levETIRAcetam 500 MG TAB PO SCH (09:18)
[2019-02-24] MEDS: carBAMazepine 200 MG TABLET PO SCH (09:18)
[2019-02-24] MEDS: LOSARTAN POTASSIUM 25 MG TAB PO SCH (09:20)
[2019-02-24] MEDS: HEPARIN SOD 5,000 UNIT/0.5 ML VIAL SQ SCH (09:20)
[2019-02-24] MEDS: MENTHOL-ZINC OXIDE 360 APPLN/120 GM TUBE EXT SCH (09:20)
[2019-02-24] MEDS ORDERED: ZONISAMIDE 100 MG PO SCH (12:15)
--- NOTE | 2019-02-24 12:16 | Hospitalist Progress Note ---
Date of Service February 24, 2019 Assessment & Plan (1) Seizure: -Patient is an 88 yr female with H/O seizure disorder, HTN, osteoarthritis presented to ER, was found lying on bathroom floor this morning around 9:00am by caregiver. Caregiver reports witnessed seizure like activity lasting approx 15 seconds -altered mental status from seizure appears to be resolved at this time -patient has been evaluated by [facility] on 04/23/18 -patient currently on home dose carbamazepine 200 mg BID as recommended by [facility] -[facility] also recommended to resume home dose zonisamide 100 mg BID; but because this home medication is non-formulary, patient currently on Keppra 500 mg q12 hours as second agent -patient transferred from telemetry to medical [facility] bed on 02/22/19 -as of 02/24/19, her home dose zonisamide was brought in by her aerospace technician. as per case assembler patient can be discharged to [facility] today Patient is discharged from [facility] Patient should follow up with primary care doctor. Patient should continue carbamazepine 200 mg BID and usual home medication of zonisamide 100 mg BID for seizures. Patient should avoid Fentanyl as this could lower seizure threshold. Patient may take losartan 25 mg daily which is reduced from home dose of 50 mg daily for blood pressure Patient should follow up with primary care doctor and neurology 02/28/2019 3:10 PM Provider [facility]03[facility] 8:30AM with Dr. Reyna Address: [address] [place] [address], [place], [place] [address] 03/07/2019 10:40 AM Provider [facility] 11:30 AM Provider ABIGAIL Stoll Department Gastroenterology, [facility] (2) AMS (altered mental status): -Altered mental status secondary to seizure -appears to be responding to questions adequately at this time -urine culture: More than three types of organisms present, all moderate counts mixed probable skin cynthia. No further identifications or sensitivities to follow. -no mental status problems at this time (3) HTN (hypertension): -Patient may take losartan 25 mg daily which is reduced from home dose of 50 mg daily for blood pressure Hypokalemia -02/21/19 serum potassium of 3.3 -improved after potassium supplementation -continue oral potassium supplements on discharge (4) Hip pain: -Reported by ER staff that pt c/o R hip pain -R hip xray: no acute fractures -Denies any hip pain at this time (5) Osteoarthritis: -avoiding fentanyl patch -Disposition: as per case assembler and patient's family member preference and with patient consensus about disposition to acute physical rehabilitation or prison facility such as [facility] due to concerns of being a fall risk DVT Px: Heparin SQ Code Status DNI/DNR Main Discharge Diagnosis: AMS (altered mental status) from Seizure, Hypertension Subjective Patient seen and examined at the bedside. No dizziness. No headache. no chest pain. no shortness of breath. baseline mental status. The zonisamide home medication was brought in. Discharge plans discussed Review of Systems Review of Systems: All systems reviewed & are unremarkable except as noted in HPI & below Physical Exam Constitutional: comfortable Eyes: PERRL, conjunctivae normal, anicteric sclerae EOM intact bilaterally ENMT: external ear and nose normal, oropharynx normal Neck: normal visual inspection Respiratory: normal respiratory effort, lungs clear to auscultation Cardiovascular: RRR, no murmur, no edema Gastrointestinal (Abdomen): normal bowel sounds, soft, nontender, no hepatosplenomegaly Musculoskeletal: Head/Neck/Chest: normocephalic and head atraumatic Spine: + kyphosis Neurologic: PERRL, EOMI, accommodation nl, no face palsy, no dysarthria Psychiatric: Orientation: cooperative Results & Data Vital Signs (Past 12 Hours) Vital Signs Temp Pulse Resp BP Pulse Ox 02/24/19 07:17 36.9 C 62 18 120/58 L 97 (1) AMS (altered mental status) Altered mental status type: unspecified Qualified Code(s): R41.82 - Altered mental status, unspecified
--- NOTE | 2019-02-24 12:19 | Discharge Summary ---
Date of Service February 24, 2019 Admission HPI Per Admitting Provider Pt is 88 y/o F with h/o seizure disorder, HTN, osteoarthritis presented to ER with c/o seizure. History obtained from pt's caregiver secondary to pt's current cognitive status. Caregiver reports that she helps pt 3 times a week on Mondays, Tuesdays, to help bathe and dress pt and cook her meals. She states that she also manages pt's medications and puts medications in weekly med container. Caregiver last saw pt on 02/16/19 and pt was at baseline mental status. Caregiver reports that a neighbor reports that they saw pt's bathroom light on this morning around 8am and reports pt responded back to them when they called out her name. Caregiver arrived to house at 9am today and found pt lying on bathroom floor and pt was not speaking then she reports seizure like activity with jerking movements lasting approx 15 seconds. Did not notice bowel/bladder incontinence. Caregiver reports that appears pt did not have her morning medications today as they were still in the med container. She is unsure if pt had other medications recently. Reports last placed fentanyl patch on 02/16/19. In ER reported that pt had tonic clonic seizure like activity lasting 10-15 seconds. She was given Ativan 1mg. Pt now awake but confused and non-verbal. Admission Exam Per Admitting Provider General: no acute distress, currently awake and confused, thin elderly female Head: normocephalic, atraumatic Eyes: PERRL, EOM's intact, conjunctiva non-injected, anicteric ENT: normal inspection external ears, nose, mucous membranes dry, tongue without noted lacerations Neck: supple, trachea midline Lungs: clear, no respiratory distress, no wheezing/rhonchi/rales CV: RRR, no murmur, no pretibial edema Abd: normal BS, soft, non-tender Ext: no cyanosis, no ecchymosis or edema Neuro: Awake, will follow commands of opening mouth and opening eyes and following finger, otherwise not following commands, non-verbal, noted to be grabbing at monitor leads Skin: warm, dry; right lateral knee with erythema, left lateral knee with erythema Principal Diagnosis AMS (altered mental status) from Seizure, Hypertension Discharge Exam Constitutional comfortable Eyes PERRL, conjunctivae normal, anicteric sclerae EOM intact bilaterally ENMT external ear and nose normal, oropharynx normal Neck normal visual inspection Respiratory normal respiratory effort, lungs clear to auscultation Cardiovascular RRR, no murmur, no edema Gastrointestinal (Abdomen) normal bowel sounds, soft, nontender, no hepatosplenomegaly Musculoskeletal Head/Neck/Chest: normocephalic and head atraumatic Spine: + kyphosis Neurologic PERRL, EOMI, accommodation nl, no face palsy, no dysarthria Psychiatric Orientation: cooperative Discharge Data Allergies Allergy/AdvReac Type Severity Reaction Status Date / Time Penicillins Allergy Severe THROAT Verified 02/20/19 11:36 SWELLS adhesive Allergy Intermediate SEVERE Verified 02/20/19 11:36 BLISTERS latex Allergy Mild RASH, Verified 02/20/19 11:36 BLISTERS ranitidine Allergy Mild RASH Verified 02/20/19 11:36 triamcinolone Allergy Mild GENERALIZED Verified 02/20/19 11:36 RASH tetracycline Allergy Unknown UNKNOWN Verified 02/20/19 11:36 topiramate Allergy Unknown UNKNOWN Verified 02/20/19 11:36 pramipexole [From Mirapex] Allergy Unknown Verified 02/23/19 14:03 tramadol Allergy Unknown Verified 02/23/19 14:04 MURIEL Inhibitors AdvReac Intermediate COUGH Verified 02/20/19 11:36 valproic acid AdvReac Intermediate DIPLOPIA;SEVERE Verified 02/20/19 11:36 WT LOSS alendronate sodium AdvReac Mild N/V Verified 02/20/19 11:36 Beta-Blockers AdvReac Mild FATIGUE Verified 02/20/19 11:36 (Beta-Adrenergic Bloc codeine AdvReac Mild NAUSEA Verified 02/20/19 11:36 nifedipine AdvReac Mild ABD Verified 02/20/19 11:36 BLOATING Consultations 02/20/19 13:32 ED Decision to Admit Stat 02/20/19 17:04 Consult Case Management - Discharge Planning Routine Consult Neurology Routine Ordered Studies 02/20/19 10:46 CT head/brain wo con Stat Hospital Course (1) Seizure: -Patient is an 88 yr female with H/O seizure disorder, HTN, osteoarthritis presented to ER, was found lying on bathroom floor this morning around 9:00am by caregiver. Caregiver reports witnessed seizure like activity lasting approx 15 seconds -altered mental status from seizure appears to be resolved at this time -patient has been evaluated by [facility] on 04/23/18 -patient currently on home dose carbamazepine 200 mg BID as recommended by [facility] -[facility] also recommended to resume home dose zonisamide 100 mg BID; but because this home medication is non-formulary, patient currently on Keppra 500 mg q12 hours as second agent -patient transferred from telemetry to medical jackson bed on 02/22/19 -as of 02/24/19, her home dose zonisamide 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 as per manager of case management patient can be discharged to [facility] today Patient is discharged from [facility] Patient should follow up with primary care doctor. Patient should continue carbamazepine 200 mg BID and usual home medication of zonisamide 100 mg BID for seizures. Patient should avoid Fentanyl as this could lower seizure threshold. Patient may take losartan 25 mg daily which is reduced from home dose of 50 mg daily for blood pressure Patient should follow up with primary care doctor and neurology 02/28/2019 3:10 PM Provider [facility] 03/03/19 8:30AM with Dr. Reyna Address: [address] [place] [address] [address], [place], [place] [address] 03/07/2019 10:40 AM Provider Ervin Barton MD Department [facility] 03/14/2019 11:30 AM Provider ABIGAIL Stoll Department Gastroenterology, [facility] (2) AMS (altered mental status): -Altered mental status secondary to seizure -appears to be responding to questions adequately at this time -urine culture: More than three types of organisms present, all moderate counts mixed probable skin cynthia. No further identifications or sensitivities to follow. -no mental status problems at this time (3) HTN (hypertension): -Patient may take losartan 25 mg daily which is reduced from home dose of 50 mg daily for blood pressure Hypokalemia -02/21/19 serum potassium of 3.3 -improved after potassium supplementation -continue oral potassium supplements on discharge (4) Hip pain: -Reported by ER staff that pt c/o R hip pain -R hip xray: no acute fractures -Denies any hip pain at this time (5) Osteoarthritis: -avoiding fentanyl patch -Disposition: as per manager of case management and patient's family member preference and with patient consensus about disposition to acute physical rehabilitation or fdc facility such as [facility] due to concerns of being a fall risk DVT Px: Heparin SQ Code Status DNI/DNR Main Discharge Diagnosis: AMS (altered mental status) from Seizure, Hypertension Total Time Total Time Spent Total Time Spent (In Minutes): 40 minutes Total Time Includes: Examination of the Patient, Discharge Planning, Medication Reconciliation and Communication With Other Providers Discharge Plan Discharge Items Patient Disposition: Transfer Inpatient Rehab Fac Reason For Visit: SEIZURE Discharge Diagnosis: AMS (altered mental status) from Seizure (resolved), Hypertension Condition on Discharge: Good Activity: Per Instructions section Non-emergency contact: Primary Care Provider and Neurologist Call non-emergency contact if: you have any medication questions Follow-up/Referrals: Ervin Barton MD [Primary Care Provider] - Diet: Heart Healthy Addtl Attending Provider Instructions: Patient is discharged from [facility] Patient should follow up with primary care doctor. Patient should continue carbamazepine 200 mg BID and usual home medication of zonisamide 100 mg BID for seizures. Patient should avoid Fentanyl as this could lower seizure threshold. Patient may take losartan 25 mg daily which is reduced from home dose of 50 mg daily for blood pressure Patient should follow up with primary care doctor and neurology 02/28/2019 3:10 PM Provider [facility] Barton [facility] 03/03/19 8:30AM with Dr. Reyna Address: [address] [place] [address], [place], [place] [address] 03/07/2019 10:40 AM Provider Ervin Barton MD Department Family [facility] 03/14/2019 11:30 AM Provider ABIGAIL Stoll Department Gastroenterology, [facility] Pending Studies at Discharge: Yes Studies:: zonisamide levels from 02/21/19 Stand-Alone Forms: My [facility] Skilled Items Patient informed of condition?: Yes DNR: Yes Discharge Level of Care: Acute rehab Communicable Disease: No Discharge Prognosis: Stable Lines: None Urinary Catheter: No Medications and DC Order Prescriptions: New losartan 25 mg Tablet 25 mg PO QAM 30 Days Qty: 30 RF: 0 Continued ergocalciferol (vitamin D2) 50,000 unit capsule 50,000 unit PO MONTHLY RF: 0 calcium carbonate-vitamin D3 [Oyster Shell Calcium-Vit D3] 500 mg(1,250mg) - 200 unit Tablet 1 tab PO BID RF: 0 PreserVision AREDS-2 [id number] Capsule 1 tab PO QAM RF: 0 omeprazole 20 mg tablet,delayed release (DR/EC) 20 mg PO QAM RF: 0 Calmoseptine 0.44-20.6 % Ointment 1 applic TOPICAL BID RF: 0 zonisamide 100 mg capsule 100 mg PO BID RF: 0 carbamazepine 200 mg tablet 200 mg PO BID RF: 0 oxybutynin chloride 5 mg tablet extended release 24hr 5 mg PO BID RF: 0 Discontinued losartan 50 mg tablet 50 mg PO QAM RF: 0 potassium chloride 10 mEq tablet extended release 10 meq PO QAM RF: 0 fentanyl 12 mcg/hr patch 72 hour 1 dose Topical Q3D RF: 0 Discharge Orders: Discharge Order (Routine); Ordered 02/24/19 Ordered By: Milton Camacho Admission Data Admit Date/Time: 02/20/19 14:26 Attending Provider: Milton Camacho Admit Provider: Milton Florian Primary Care Provider: Ervin Barton Other Providers: [facility] ; Milton Florian ; Queta Reyna
== END 2019-02-24 13:45 | DRG 101 ==
LOC: ED 09:51 → 2S 14:26 → SUATTDRO 14:26 → 2S 16:42 → 4W 02-22 15:00